=== PATIENT | male | born 1955 | race Caucasian/White ===

== ENCOUNTER 2016-07-15 15:16 | Inpatient (IN) | payer MEDICARE ==
[~2016-07-15] VITALS: Ht 180.3 cm; Wt 112.1 kg
[~2016-07-15 15:16] MED LIST: ALLO100T PO; AMLO-39 PO; ASPI81TA40 PO; CEPH-512 PO; CHOL200041 PO; CLON0.1T14 PO; CLOP75TA14 PO; COZ100 PO; FUR80 PO; GLU500 PO; IMD30 PO; METOPROLOL PO; OMEG1CAP25 PO; OMEP20CA11 PO; SIMV20TA PO; [UNRECOGNIZED DRUG - CODE] PO
[2016-07-15] MEDS ORDERED: Alum-Mag Hydrox-Simeth 30 mL Suspension PO PRN (16:40)
[2016-07-15] MEDS ORDERED: Ondansetron 2 mg/mL 2 mL Inj IVPUSH PRN (16:40)
[2016-07-15] MEDS ORDERED: Senna-Docusate 8.6-50 mg Tablet PO PRN (16:40)
[2016-07-15] MEDS ORDERED: Polyethylene Glycol (PEG) 17 Gm Powder PO PRN (16:40)
[2016-07-15 16:42] VITALS: BP 172/85; PULSE 57; RESP 22; O2SAT 96
[2016-07-15 16:55] VITALS: PULSE 59
--- NOTE | 2016-07-15 17:31 | NUR ---
Admit Pt. admitted from [facility] cardiology clinic today at 1615. Pt. denies chest pain, SOB, nausea, vomiting. Pt. has significant edema in face, hands, and lower extremities. Reports he has had 3 strokes, and displays R sided weakness. Wears a leg brace and uses a cane for ambulation. Pt. able to walk independently with cane, but we will keep him standby assist d/t unsteady gait. present soon after pt. in room to assess. at 1720, welding technician called to report 9 beats v-tach. Pt. reports no symptoms. paged.
[2016-07-15] MEDS ORDERED: TAMS0.4C98 PO (17:39)
[2016-07-15] MEDS ORDERED: VERA120T5 PO (17:39)
[2016-07-15] MEDS ORDERED: GABA600T2 PO ×3 (17:41)
[2016-07-15] MEDS ORDERED: CLON0.3T PO (17:42)
[2016-07-15] MEDS ORDERED: CARV25TA2 PO (17:42)
[2016-07-15] MEDS ORDERED: HYDR100T27 PO (17:43)
[2016-07-15] MEDS ORDERED: ISOS60TA2 PO (17:43)
[2016-07-15] MEDS ORDERED: LOSA100T29 PO (17:44)
[2016-07-15] MEDS ORDERED: MINO10TA PO (17:45)
[2016-07-15] MEDS ORDERED: POTA20TA16 PO (17:46)
[2016-07-15] MEDS ORDERED: FRSM80T PO (17:46)
[2016-07-15] MEDS ORDERED: CLOP75TA3 PO (17:47)
[2016-07-15] MEDS ORDERED: OMEG1CAP2 PO (17:48)
[2016-07-15] MEDS ORDERED: SIMV10TA4 PO (17:48)
[2016-07-15] MEDS ORDERED: ZYL100 PO (17:49)
[2016-07-15 17:51] LABS: BASOPHILS % (AUTO) 0.5 % (0-3); MONOCYTES % (AUTO) 5.7 % (4-12); Mean Corpuscular Hemoglobin 28.7 pg (27.0-35.0); Mean Corpuscular Volume 85.3 fL (81-100); NEUTROPHILS % (AUTO) 69.4 % (40-74); Platelet Count 147 bil/L (150-400)
[2016-07-15] MEDS ORDERED: DOCU-41 PO (17:51)
[2016-07-15] MEDS ORDERED: ASPI81TA3 PO (17:51)
[2016-07-15] MEDS ORDERED: CHOL100045 PO (17:51)
[2016-07-15] MEDS ORDERED: MULT1CAP33 PO (17:52)
[2016-07-15] MEDS ORDERED: ALBU8.5H2 INHALATION (17:52)
[2016-07-15 18:24] LABS: Magnesium 2.1 mg/dL (1.6-2.6); TROPONIN T < 0.010 ug/L (0.0-0.011)
--- NOTE | 2016-07-15 22:10 | PCM.HPMED ---
Subjective Date of Service Jul 15, 2016 Primary Provider: Admitting Physician: Jose David Hoffman MD Primary Care Physician: Other,Physician Attending Physician: Jose David Hoffman MD Admit Status: Direct Admit, Full Admit, Remote Telemetry Chief Complaint: Dyspnea and gross leg edema. History of Present Illness: This is a pleasant 61-year-old woman sent over from cardiology as a direct admit for volume overload. He has progressive severe edema. Recently in spite of being on Lasix at 80 mg, 3 tabs in the morning he has had progressive leg edema with weight increase and seeping of both legs. He is also had some dyspnea at rest, with exertion and some orthopnea. He has no known history of CAD and no recent echo. His last EKG is not available. He denies recent chest pain. He has been more short of breath since last Tuesday indefinitely since Tuesday. He has been more sedentary recently his sister notices them more fatigued and sleeps quite easily. Review of Systems: No headache. He denies visual changes or difficulty hearing. No recent URI symptoms including rhinorrhea sore throat cough or shortness of breath. No fevers or chills. No palpitations. No nausea vomiting diarrhea or blood per rectum. No hematuria or dysuria. No new skin rash or lesions other than the blistering and clear or serous oozing from his legs. Otherwise negative except as noted in history of present illness Allergies Coded Allergies: No Allergy Information Available (Verified Allergy, Unknown, RENAL INSUFFICIENCY DUE TO UNKNOWN ANTIBIOTIC, 12/09/15) Uncoded Allergies: antibiotic of unknown (Allergy, Unknown, 05/10/14) Home Medications Medical history list is pending the patient is taking Lasix 80 mg tablets 3 each morning. He is on multiple antihypertensives. I believe these will need to be reverified in the morning with the patient. PMH 1. CVA with chronic right hemiparesis 2. Chronic edema for up to 7 years. 3. Hypertension 4. Diabetes mellitus 2, diet controlled 5. Obesity Surgical History Surgery and fingers Family History Positive for CVA, sister and diabetes, mom Social History Hx Alcohol Use: No Hx Substance Use: No Hx Tobacco Use: No Smoking Status: Never Smoker Living Arrangement: Alone Exam Vital Signs Vital Sign - Last Date Time Temp Pulse Resp B/P Pulse Ox O2 Delivery O2 Flow Rate FiO2 07/15/16 16:55 59 07/15/16 16:42 36.6 22 172/85 96 Room Air Exam And oriented no acute distress. Fluent speech. Head is normal Normal nose and ears Anicteric sclerae, symmetric pupils Normal mouth, no droop. Oropharynx unremarkable. Neck is supple, normal JVP. Normal thyroid, no adenopathy. Lungs are clear with diminished breath sounds in the bases Heart is regular, distant no murmur. Abdomen is distended but nontender. No organomegaly. Extremities are notable for gross edema to the knees bilaterally with serious drainage in areas. The right foot is in a brace to prevent drop. Skin is otherwise free of rash or lesions, no ecchymosis. Patient has a paretic right arm and leg. Cranial nerves are grossly intact. Joints are not swollen or deformed. Patient is not anxious. Lab and Diagnostics Result Diagram: 07/15/16173607/15/161736 Assessment & Plan 1. Volume overload, anasarca. POA. This possibly does represent acute diastolic or systolic heart failure. Plan is to diuresis Lasix 100 IV every 12 hours, follow electrolytes. We will also obtain a chest x-ray, 2-D echocardiogram and ECG. 2. Obesity. POA. Follow clinically 3. Essential hypertension. POA. Follow clinically. He did verify his usual antihypertensive medications. Appears he is on many medications at high doses. 4. Diabetes mellitus to. Diet controlled. POA. We will simply use a 2 before meals and at bedtime Accu-Cheks with correctional lispro. 5. Chronic CVA with chronic right hemiparesis. POA. Patient's for resuscitation This is estimated to be over 2 nights, inpatient status. Pain Evaluation: Adequate Pain Control Resuscitation Status: CPR: Attempt Resuscitation Time spent 40 minutes Jose David Hoffman MD Jul 15, 2016 22:10
[2016-07-15 22:14] VITALS: BP 181/96; PULSE 57; RESP 20; O2SAT 94
[2016-07-15] MEDS: Furosemide 10 mg/mL 10 mL Inj IVPUSH SCH (23:14)
[2016-07-16] VITALS (8 sets, daily range): BP systolic 145–214; BP diastolic 69–103; PULSE 56–66; RESP 18–22; O2SAT 93–97
[2016-07-16] MEDS: Heparin 5,000 Unit/mL Inj SUBQ SCH ×3 (00:47→16:50)
[2016-07-16] MEDS: Sodium Chloride LOK Flush 10 mL Syringe IVFLUSH SCH ×3 (00:47→16:53)
[2016-07-16] MEDS ORDERED: hydrALAZINE 20 mg/mL Inj IV ONE (02:40)
--- NOTE | 2016-07-16 03:52 | NUR ---
BP Pt's BP was 203/92, paged Dr Marmolejo. 10mg hydralazine was ordered and given. Will continue to monitor.
[2016-07-16] MEDS ORDERED: Albuterol 2.5 mg/3 mL Inhalation Solution NEB PRN (07:00)
[2016-07-16 08:48] LABS: Phosphorus 3.6 mg/dL (2.5-4.9)
[2016-07-16 08:51] LABS: TROPONIN T < 0.010 ug/L (0.0-0.011)
[2016-07-16] MEDS: Isosorbide Mononitrate 60 mg ER24 Tablet PO SCH (10:19)
[2016-07-16] MEDS: Furosemide 10 mg/mL 10 mL Inj IVPUSH SCH (11:33)
[2016-07-16] MEDS: Potassium Chloride 20 mEq SR Tablet PO SCH ×2 (11:34→23:12)
[2016-07-16] MEDS ORDERED: hydrALAZINE 20 mg/mL Inj IV STA (12:21)
[2016-07-16] MEDS: cloNIDine 0.1 mg Tablet PO SCH ×2 (15:47→20:15)
[2016-07-16 17:00] LABS: TROPONIN T < 0.010 ug/L (0.0-0.011)
--- NOTE | 2016-07-16 17:01 | DRSVH ---
[facility] [address] [place] [address] Echocardiogram Report Name: ARNOLD JOAQUIN RStudy Date: 07/16/2016 Height: 71 in Hospital Exam Location: [facility] Weight: 267 lb Gender: Male BSA: 2.4 m2 : 1955 Age: 61 yrs BP: 175/83 mmHg Reason For Study: Congestive Heart Failure Ordering Physician: Performed By: [facility] Interpretation Summary 1) Moderate concentric left ventricular hypertrophy with normal size, wall motoin, and systolic function (EF 60-65%). 2) Normal right ventricular size and function. 3) No significant valvular abnormalities. 4) Severe left atrial enlargement present. 5) Small to moderate pericardial effusion present circumferentially. No echo/doppler evidence of tamponade physiology. 6) Significant hypertension present during the study (BP 175/83). 7) Findings consistent with hypertensive heart disease. 8) No prior Echo available for comparison. Procedure: A two-dimensional transthoracic echocardiogram with color flow and Doppler was performed. The study quality was technically adequate. There is no prior echocardiogram noted for this patient. The patient was in normal sinus rhythm during the exam. Left Ventricle: There is moderate concentric left ventricular hypertrophy. The left ventricle is normal in size. The ejection fraction is estimated to be 60-65%. Assessment of diastolic parameters indicates normal left ventricular diastolic function and normal filling pressures. Right Ventricle: The right ventricle is normal in size and function. Atria: The left atrium is severely dilated. Right atrial size is normal. The interatrial septum is intact with no evidence for an atrial septal defect. Aortic Valve: The aortic valve opens well. No aortic regurgitation is present. Tricuspid Valve: The tricuspid valve is normal in structure and function. There is a trace or physiologic amount of tricuspid regurgitation. The right ventricular systolic pressure is estimated at 35 mmHg assuming a right atrial pressure of 3 mm Hg. Pulmonic Valve: The pulmonic valve leaflets are thin and pliable; valve motion is normal. There is trace pulmonic regurgitation. Great Vessels: The aortic root is mildly dilated. The ascending aorta is mild-moderately enlarged. The IVC is of normal diameter and collapses greater than 50% with a sniff. This suggests a low right atrial pressure of 3 mm Hg. Pericardium/ Pleura Small to moderate pericardial effusion present circumferentially. There are no echocardiographic or Doppler indications for cardiac tamponade. There is no pleural effusion. MMode/2D Measurements & Calculations LVIDd: 5.7 cm LA dimension: 5.3 cm RA long axis Ao root diam: 4.0 cm LVIDs: 3.5 cm Aortic Jxn: 3.1 cm FS: 39.0 % LA A2 area: 33.1 cm RA area asc Aorta Diam IVSd: 1.5 cm LA A4 area: 39.2 cm LVPWd: 1.4 cm LA length (vol) : 19.5 cm Ao Arch Diam RA vol (Proximal trans.) LA vol: 151.9 ml : 60.6 ml LA vol index RA : 25.4 mm/ RVDd major IVC diam: 1.9 cm RVDd minor : 3.9 cm LV yu. diameter/BSALV sys. diameter/BSA (cm/m^2): 2.4 (cm/m^2): 1.5 Doppler Measurements & Calculations Ao V2 max MV E max freedom MV E/A: 1.2 TR max freedom : 184.2 cm/sec : 96.3 cm/sec MV A dur: 0.13 sec: 284.0 cm/sec Ao max PG MV A max freedom TR max PG : 13.6 mmHg : 78.3 cm/sec : 32.3 mmHg Ao mean PG PA V2 max : 6.6 mmHg : 117.5 cm/sec PA mean PG PA Accel Time : 0.14 sec MV dec time Ao V2 mean PA V2 mean : 0.21 sec : 120.0 cm/sec : 77.2 cm/sec Ao V2 VTI: 39.9 cm Reading Physician:05:00 PM
[2016-07-16] MEDS ORDERED: HYDROcodone-APAP 5-325 mg Tablet PO PRN (17:05)
--- NOTE | 2016-07-16 18:14 | NUR ---
Wound Care Pt sen at bedside, small 2 cm diameter ulcer right pretibial area, cultured, cleaned with saline, redressed with xeroform, kerlix and jovan wrap for edema control,. scratches at left lower leg these are covered with xeroform and wrapped with kerlix and jovan wraps. Wounds do not appear infected, recommend q 48 hr dressing changes by nursing, f/u at wound center for care on discharge,
--- NOTE | 2016-07-16 19:09 | NUR ---
Elevated BP New orders for Hydralazine IV and scheduled PO hydralazine for hypertension.
--- NOTE | 2016-07-16 19:11 | NUR ---
Wound consult Wound care nurse at bed side to assess bilateral lower legs and wound cultures received and sent to lab as ordered.
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
[2016-07-17] VITALS (7 sets, daily range): BP systolic 137–194; BP diastolic 70–89; PULSE 53–63; RESP 16–18; O2SAT 92–96
[2016-07-17] MEDS: Sodium Chloride LOK Flush 10 mL Syringe IVFLUSH SCH ×4 (00:12→23:40)
[2016-07-17] MEDS: Heparin 5,000 Unit/mL Inj SUBQ SCH ×4 (00:12→23:41)
--- NOTE | 2016-07-17 02:19 | NUR ---
Pain Pt complained of pain in RL leg. Hydrocodone APAP 5/325 given with good results. Pt sleeping, will continue to monitor pain.
[2016-07-17 06:19] LABS: BASOPHILS % (AUTO) 0.7 % (0-3); EOSINOPHILS % (AUTO) 2 % (0-5); MONOCYTES % (AUTO) 10.1 % (4-12); Mean Corpuscular Hemoglobin 29.1 pg (27.0-35.0); Mean Corpuscular Volume 84 fL (81-100); NEUTROPHILS % (AUTO) 59.9 % (40-74); Platelet Count 153 bil/L (150-400)
[2016-07-17 06:30] LABS: Magnesium 2.1 mg/dL (1.6-2.6); Phosphorus 3.7 mg/dL (2.5-4.9)
[2016-07-17] MEDS: Isosorbide Mononitrate 60 mg ER24 Tablet PO SCH (08:11)
[2016-07-17] MEDS: cloNIDine 0.1 mg Tablet PO SCH ×3 (08:20→22:09)
[2016-07-17] MEDS: Potassium Chloride 20 mEq SR Tablet PO SCH ×2 (08:21→22:25)
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
[2016-07-17 15:48] LABS: APPEARANCE,URINE CLEAR (CLEAR,HAZY); COLOR,URINE YELLOW (YELLOW); PH,URINE 6.5 (5.0-8.0)
[2016-07-17 15:49] LABS: OCCULT BLOOD,URINE NEGATIVE (NEGATIVE)
--- NOTE | 2016-07-17 15:57 | NUR ---
Social Work-initial assessment: Data:See initial assessment. Pt is a 61 y/o male who was admitted on 07/15/16 for CHF per H&P. Pt's insurance is [facility] and PCP is Other. EMR Reviewed. SW met with pt at bedside to discuss discharge planning, SW role explained. Pt resides at home alone where he remains independent with ADLS. Pt drives and does use a cane at baseline.Pt has no HH Or SNF history. Pt has no intermediate project manager care or VA benefits. PT evaluation is pending. SW to follow up post PT to further discuss discharge planning. SW will continue to follow. Assessment:Pt who is independent at baseline. Plan:Pt to discharge home when medically stable via POV. PT evaluation is pending. SW to follow up post PT to further discuss discharge planning. SW will continue to follow. KYLE Alonzo Addendum: 07/17/16 at 1608 by MELONIE CESPEDES Amended: Links added.
--- NOTE | 2016-07-17 17:35 | NUR ---
BLOOD PRESSURE P-Patient's blood pressure 198/86. I-MD made aware, medication changes done. E-Patient's BP now 146/70.
--- NOTE | 2016-07-17 17:52 | PCM.PNMED ---
Subjective Date of Service Jul 17, 2016 Subjective Overnight: ongoing elevated BP readings. Today: BP still elevated. Dr. Vargas consulted. Patient finally had a good night sleep. He states he feels a little improved with breathing, but still c/o RLE pain for which he needed Hydrocodone. Denies any chest pain, cough, abdominal pain. Exam Vital Signs Vital Sign - Last Date Time Temp Pulse Resp B/P Pulse Ox O2 Delivery O2 Flow Rate FiO2 07/17/16 15:03 36.8 57 16 146/70 94 Room Air Intake and Output 07/16/16 07/16/16 07/17/16 Cumulative From/Thru 15:00 23:00 07:00 07/15/16 16:40 - 07/17/16 05:15 Intake Total 300 ml 804 ml 400 ml 1504 ml Output Total 2375 ml 2875 ml 1430 ml 6980 ml Balance -2075 ml -2071 ml -1030 ml -5476 ml Intake Oral 300 ml 804 ml 400 ml 1504 ml Output Urine Total 2375 ml 2875 ml 1430 ml 6980 ml # Bowel Movements 1 1 Exam General: Obese, sitting upright in bed; alert, oriented; no acute distress HENT: Atraumatic, normocephalic; sclera anicteric; mucus membranes moist Neck: Soft, trachea midline Cardiac: Distant heart sounds; regular rate and rhythm at time of examination; no murmurs appreciated Respiratory: Adequate air flow all velez; no crackles appreciated; no wheeze Abdomen: Soft, nontender, nondistended; obese Extremities: Moderate BLLE pitting edema extending from dorsi to knees; multiple wounds BLLE proximal to ankles wrapped, with bandages clean, dry. intact; no active bleeding; wounds are moist, no streaking erythema; mildly tender to touch Skin: Warm and dry Neuro: CNII-XII grossly intact; speech understandable, impediment noted Psych: Appropriate mood, affect, and responses to questioning IVs and Medications Medications Reviewed: Medications were reviewed in detail Lab and Diagnostics Result Diagram: 07/17/1652 07/17/16 0552 Assessment & Plan Mr. Moose Morales is a 61 year old gentleman with history of CVA with right sided weakness residuals, resistant HTN, JANINE on CPAP, and chronic BLLE edema, that presented as a direct admission from cardiology office for exertional chest pain, shortness of breath, and increased edema. He was admitted for evaluation and treatment of volume overload. - Hospital day 3 Fluid retention with anasarca, chronicity unknown. Improving - Nephrology consultation with Dr. Vargas for improved fluid management. - Stopped Lasix IV per Dr. Vargas - Started Torsemide 40 mg BID - Monitor I/O - Echo: EF 60-65%, no valvular abnormalities, severe LA enlargement - BMP q8 to monitor electrolytes; replenish prn Resistant HTN, chronic. Presumed stable - Per Dr. Vargas: stop Carvedilol and Verapamil along with Lasix - Labetalol 300 mg twice a day and torsemide 40 mg twice a day. - Start chlorthalidone 25 mg daily. - Increase minoxidil to 5 mg b.i.d., and his spironolactone to 25 mg b.i.d. - Continue Clonidine 0.3mg TID, Losartan 100mg daily, Hydralazine 100mg TID, Isosorbide mononitrate ER 30mg daily - Work up for Hyperaldosteronism Multiple bilateral lower extremitiy wounds, chronicity unknown, present on admission. Ongoing - Wound eval Chronic kidney disease, stage III. Presumed stable - On admit: 1.55; baseline based on previous labs approx 1.4-1.5 - Monitor with lasix admin Obesity, chronic. Ongoing - Encouraged improved diet and mobility - Perry-scooter at baseline - PT eval Diabetes mellitus, non-insulin using, chronic. Presumed stable - A1c 07/15: 8.2 - Low dose correctional scale - Diabetic diet CVA with right sided residual deficits, chronic. Presumed stable - PT eval - PRN: Antiemetics/fever/bowel/pain - DVT: Hep q8 - GI: Not indicated - DIET: Heart healthy/CC - CODE: FULL CODE GI Prophylaxis: Not indicated Resuscitation Status: CPR: Attempt Resuscitation Attending Statement I reviewed this patients chart, discussed the plan of care with the resident and examined the patient. I agree with the above physical exam and assessment and plan. SUMA WINSLOW DO Jul 17, 2016 17:52 Efra Schilling DO Jul 18, 2016 16:27
--- NOTE | 2016-07-17 19:11 | DRSVH ---
PROCEDURE: US RENAL SONOGRAM INDICATIONS: 61-year-old male with chronic kidney disease. TECHNIQUE: Real-time scanning was performed of the kidneys and bladder, with image documentation. COMPARISON: None. FINDINGS: Kidneys: Kidneys are normal in size. Right kidney measures 10.9 cm long; left kidney measures 9.9 c m long. 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 Right renal cortical thickness is 1.5 cm; left renal cortical thickness is 1.1 cm. Renal cortical echotexture is normal. No hydronep hrosis or nephrolithiasis. No suspicious solid mass lesions. Bladder: Pre-void bladder volume is 600 mL. Post-void residual is 252 mL. Pre-void images demonstr ate no intraluminal masses or stones. On pre-void images, no ureteral jets are noted with color Dopp ler interrogation. (Of note, ureteral jets may not be detectable in up to 25% of cases due to insuff icient differences in specific gravity between ureteral and bladder urine). Miscellaneous: No free pelvic fluid. IMPRESSION: Increased postvoid residual, suggesting bladder outlet obstruction and/or neurogenic bladder. Dictated by: Nik Gtz M.D. on 07/17/2016 at 19:09 Approved by: Nik Gtz M.D. on 07/17/2016 at 19:09
[2016-07-18] VITALS (9 sets, daily range): BP systolic 104–145; BP diastolic 50–71; PULSE 56–68; RESP 16–18; O2SAT 89–95
--- NOTE | 2016-07-18 01:06 | NUR ---
leg dressing changed changed dressing to bilateral lower extremities as per wound care instructions. no drainage. wound beds are pink, healing well. also provided quiana care.
[2016-07-18] MEDS: Sodium Chloride LOK Flush 10 mL Syringe IVFLUSH SCH ×2 (09:11→16:49)
[2016-07-18] MEDS: Isosorbide Mononitrate 60 mg ER24 Tablet PO SCH (09:14)
[2016-07-18] MEDS: Heparin 5,000 Unit/mL Inj SUBQ SCH ×2 (09:23→16:49)
[2016-07-18] MEDS: cloNIDine 0.1 mg Tablet PO SCH ×3 (09:24→20:30)
[2016-07-18] MEDS: Potassium Chloride 20 mEq SR Tablet PO SCH ×2 (09:24→21:11)
--- NOTE | 2016-07-18 10:43 | PCM.PNMED ---
Subjective Date of Service Jul 18, 2016 Subjective Patient's blood pressure is considerably improved. He states that he has no new complaints and denies any chest pain, shortness of breath, cough, wheezing, nausea or vomiting. Most of his lab is pending at time of this dictation all of his urine protein to creatinine ratio was 0.3 which is consistent with 300 mg of protein IS most likely albumin from diabetic renal disease. His intake and output from yesterday work was 2150 in and 2355 out. Ultrasound showed normal-sized kidney kidneys bilaterally with normal architecture. There is no evidence of any masses or obstruction and evidence of any pelvic fluid. Exam Vital Signs Vital Sign - Last Date Time Temp Pulse Resp B/P Pulse Ox O2 Delivery O2 Flow Rate FiO2 07/18/16 09:05 CPAP/BIPAP 07/18/16 09:05 36.8 68 16 135/71 95 Intake and Output 07/17/16 07/17/16 07/18/16 Cumulative From/Thru 15:00 23:00 07:00 07/15/16 16:40 - 07/18/16 05:51 Intake Total 1750 ml 800 ml 4054 ml Output Total 925 ml 1750 ml 9655 ml Balance 825 ml -950 ml -5601 ml Intake Oral 1750 ml 800 ml 4054 ml Output Urine Total 925 ml 1750 ml 9655 ml # Bowel Movements 0 1 Exam Neck is supple without adenopathy, thyromegaly, or jugular venous distention. Lungs were clear to auscultation though somewhat diminished. Heart was regular with soft systolic murmur. Abdomen was distended without tenderness rebound guarding masses or hepatosplenomegaly was noted. Sphincter was good and there is no evidence of any rashes. His lower extremities for both left and this was not explored. There was no significant edema noted. Lab and Diagnostics Result Diagram: 07/17/16 0552 07/18/16 0717 Assessment & Plan Impression #1 hypertension with hypertensive heart disease and hypertensive nephrosclerosis without any overt evidence of congestive heart failure #2 diabetic nephropathy #3 poorly controlled hypertension rule out primary hyperaldosteronism #4 proteinuria Recommendation to continue him on his current medical therapy and I will follow him closely with you. GI Prophylaxis: Not indicated Resuscitation Status: CPR: Attempt Resuscitation Bennie Vargas DO Jul 18, 2016 10:43
--- NOTE | 2016-07-18 11:10 | NUR ---
Social Work-continued d/c planning: Data:EMR reviewed. Pt is on day 3 of hospitalization for CHF per H&P. Per MD, pt will likely be hospitalized for several more days. PT worked with pt yesterday and recommended SNF placement. SW discussed with pt, pt states he would like to think about this and have SW follow back up with pt. SW also discussed HH services, pt states he will think about this as well. SW to follow up tomorrow to further discuss. SW will continue to follow. Assessment:SNF vs home with HH. Plan:SW to follow up again tomorrow with pt regarding SNF vs home with HH. PT currently recommending SNF, pt would like to think about his options. SW will continue to follow. KYLE Alonzo
--- NOTE | 2016-07-18 15:30 | PCM.PNMED ---
Subjective Date of Service Jul 18, 2016 Subjective Overnight: No acute events Today: Doing well. Sitting upright and eating breakfast. Tolerating po intake well. Net (-) 5601; reports much improved breathing and decreased BLLE swelling. Exam Vital Signs Vital Sign - Last Date Time Temp Pulse Resp B/P Pulse Ox O2 Delivery O2 Flow Rate FiO2 07/18/16 13:44 36.8 65 104/51 91 Room Air 07/18/16 09:05 16 Intake and Output 07/17/16 07/17/16 07/18/16 Cumulative From/Thru 15:00 23:00 07:00 07/15/16 16:40 - 07/18/16 05:51 Intake Total 1750 ml 800 ml 4054 ml Output Total 925 ml 1750 ml 9655 ml Balance 825 ml -950 ml -5601 ml Intake Oral 1750 ml 800 ml 4054 ml Output Urine Total 925 ml 1750 ml 9655 ml # Bowel Movements 0 1 Exam General: Obese, sitting upright in bed; alert, oriented; no acute distress HENT: Atraumatic, normocephalic; sclera anicteric; mucus membranes moist Neck: Soft, trachea midline Cardiac: Distant heart sounds; regular rate and rhythm at time of examination; no murmurs appreciated Respiratory: Adequate air flow all velez; no crackles appreciated; no wheeze Abdomen: Soft, nontender, nondistended; obese Extremities: Mild BLLE pitting edema extending from dorsi to knees; multiple wounds BLLE proximal to ankles wrapped, with bandages clean, dry. intact; no active bleeding; wounds are moist, no streaking erythema; non tender to touch Skin: Warm and dry Neuro: CNII-XII grossly intact; speech understandable, impediment noted Psych: Appropriate mood, affect, and responses to questioning IVs and Medications Medications Reviewed: Medications were reviewed in detail Lab and Diagnostics Result Diagram: 07/17/16 0552 07/18/16 0717 Assessment & Plan Mr. Moose Morales is a 61 year old gentleman with history of CVA with right sided weakness residuals, resistant HTN, JANINE on CPAP, and chronic BLLE edema, that presented as a direct admission from cardiology office for exertional chest pain, shortness of breath, and increased edema. He was admitted for evaluation and treatment of volume overload. - Hospital day 4 Fluid retention with anasarca, chronicity unknown. Resolved - Nephrology consultation with Dr. Vargas for improved fluid management. - Stopped Lasix IV per Dr. Vargas - Started Torsemide 40 mg BID - Monitor I/O - Echo: EF 60-65%, no valvular abnormalities, severe LA enlargement - BMP q8 to monitor electrolytes; replenish prn Resistant HTN, chronic. Presumed stable - Per Dr. Vargas: stop Carvedilol and Verapamil along with Lasix - Labetalol 300 mg twice a day and torsemide 40 mg twice a day. - Start chlorthalidone 25 mg daily. - Increase minoxidil to 5 mg b.i.d., and his spironolactone to 25 mg b.i.d. - Continue Clonidine 0.3mg TID, Losartan 100mg daily, Hydralazine 100mg TID, Isosorbide mononitrate ER 30mg daily - Work up for Hyperaldosteronism : pending MSSA of multiple bilateral lower extremitiy wounds, chronicity unknown, present on admission. Ongoing - Wound eval - Cx revealed: MSSA, pansensitive, exc resistant to clindamycin - Augmentin 875/125 BID x10 days - Caution with unknown abx allergy ([employer] reports clindamycin as allergy) Chronic kidney disease, stage III. Presumed stable - On admit: 1.55; baseline based on previous labs approx 1.4-1.5 - Monitor with lasix admin Obesity, chronic. Ongoing - Encouraged improved diet and mobility - Perry-scooter at baseline - PT eval; pending Diabetes mellitus, non-insulin using, chronic. Presumed stable - A1c 07/15: 8.2 - Low dose correctional scale - Diabetic diet CVA with right sided residual deficits, chronic. Presumed stable - PT eval - PRN: Antiemetics/fever/bowel/pain - DVT: Hep q8 - GI: Not indicated - DIET: Heart healthy/CC - CODE: FULL CODE Dispo: Likely to DC 07/19 if remains medically stable, and PT can complete an evaluation. Pain Evaluation: Adequate Pain Control GI Prophylaxis: Not indicated Resuscitation Status: CPR: Attempt Resuscitation Attending Statement I reviewed this patients chart, discussed the plan of care with the resident and examined the patient. I agree with the above physical exam and assessment and plan. Devora Mccracken DO Jul 18, 2016 15:30 Efra Schilling DO Jul 18, 2016 16:29
--- NOTE | 2016-07-18 18:17 | NUR ---
BLOOD PRESSURE P-Patient's last two BP's 106/55 and 104/51 I- Held BP medications E-Continue to monitor BP before giving medications. I
[2016-07-18] MEDS: Amoxicillin-Clav 875-125 mg Tablet PO SCH (21:10)
--- NOTE | 2016-07-18 23:40 | NUR ---
Blood Glucose Pt Blood glucose level at 223 for HS reading, pt reported that last meal was around 1700. No BG coverage available. Pt reports that he has Diabetes and was taking Metformin about 6 months ago but stopped because A1c level was low. paged about condition. Low dose algorithm ordered for Blood glucose correction.
[2016-07-19] VITALS (9 sets, daily range): BP systolic 81–119; BP diastolic 44–64; PULSE 61–71; RESP 16–18; O2SAT 92–95
[2016-07-19] MEDS ORDERED: Glucose 40% Oral Gel 15 Gm Tube PO PRN (00:30)
[2016-07-19] MEDS: Insulin LISPRO 300 Unit/3 mL Inj SUBQ SCH ×5 (01:05→23:25)
[2016-07-19] MEDS: Heparin 5,000 Unit/mL Inj SUBQ SCH ×4 (01:07→23:25)
[2016-07-19] MEDS: Sodium Chloride LOK Flush 10 mL Syringe IVFLUSH SCH ×4 (01:07→23:26)
[2016-07-19 06:40] LABS: BASOPHILS % (AUTO) 0.6 % (0-3); EOSINOPHILS % (AUTO) 2.2 % (0-5); MONOCYTES % (AUTO) 8.3 % (4-12); Mean Corpuscular Hemoglobin 28.5 pg (27.0-35.0); Mean Corpuscular Volume 82.1 fL (81-100); NEUTROPHILS % (AUTO) 66.9 % (40-74); Platelet Count 149 bil/L (150-400)
[2016-07-19 06:53] LABS: Magnesium 2.2 mg/dL (1.6-2.6); Phosphorus 5.8 mg/dL (2.5-4.9)
[2016-07-19] MEDS: Amoxicillin-Clav 875-125 mg Tablet PO SCH ×2 (10:17→20:35)
[2016-07-19] MEDS: cloNIDine 0.1 mg Tablet PO SCH ×3 (10:18→20:30)
[2016-07-19] MEDS: Potassium Chloride 20 mEq SR Tablet PO SCH ×2 (10:19→20:35)
--- NOTE | 2016-07-19 10:24 | PCM.PNMED ---
Subjective Date of Service Jul 19, 2016 Subjective Overnight: No acute events Today: States he feels well. Denies SOB, CP. States his edema is much improved. He is anxious to return home. Tolerating po well. Tolerating augmentin well. No acute events. Awaiting PT evaluation. Net I/O (-) 5331; BP stable 119/56; no reported events of HTN since medication changes. Denies dizziness. lightheadedness, acute vision changes. Will continue to assess with PT evaluation later today. Exam Vital Signs Vital Sign - Last Date Time Temp Pulse Resp B/P Pulse Ox O2 Delivery O2 Flow Rate FiO2 07/19/16 05:50 36.9 61 18 119/56 93 CPAP Intake and Output 07/18/16 07/18/16 07/19/16 Cumulative From/Thru 15:00 23:00 07:00 07/15/16 16:40 - 07/19/16 06:21 Intake Total 1470 ml 100 ml 5624 ml Output Total 800 ml 500 ml 62779 ml Balance 670 ml -400 ml -5331 ml Intake Oral 1470 ml 100 ml 5624 ml Output Urine Total 800 ml 500 ml 15211 ml # Bowel Movements 0 1 Exam General: Obese, sitting upright in bed; alert, oriented; no acute distress HENT: Atraumatic, normocephalic; sclera anicteric; mucus membranes moist Neck: Soft, trachea midline Cardiac: Distant heart sounds; regular rate and rhythm at time of examination; no murmurs appreciated Respiratory: Adequate air flow all velez; no crackles appreciated; no wheeze Abdomen: Soft, nontender, nondistended; obese Extremities: Trace BLLE pitting edema extending from dorsi to knees; multiple wounds BLLE proximal to ankles wrapped, with bandages clean, dry. intact; no active bleeding; wounds are moist, no streaking erythema; non tender to touch Skin: Warm and dry; edema significantly reduced compared to previous examinations Neuro: CNII-XII grossly intact; speech understandable, impediment noted Psych: Appropriate mood, affect, and responses to questioning Lab and Diagnostics Result Diagram: 07/19/1661107/19/16611 Assessment & Plan Mr. Moose Morales is a 61 year old gentleman with history of CVA with right sided weakness residuals, resistant HTN, JANINE on CPAP, and chronic BLLE edema, that presented as a direct admission from cardiology office for exertional chest pain, shortness of breath, and increased edema. He was admitted for evaluation and treatment of volume overload. Nephrology was consulted for recommendations in fluid management, and a complete overhaul was completed. New schedule is working well thus far. - Hospital day 5 Anasarca - Improving - Nephrology consultation with Dr. Vargas for improved fluid management; appreciate expertise - Stopped Lasix IV per Dr. Vargas - Started Torsemide 40 mg BID - Monitor I/O - Echo: EF 60-65%, no valvular abnormalities, severe LA enlargement - BMP q8 to monitor electrolytes; replenish prn Essential Hypertension - Uncontrolled - Per Dr. Vargas: stop Carvedilol and Verapamil along with Lasix - Labetalol 300 mg twice a day and torsemide 40 mg twice a day. - Start chlorthalidone 25 mg daily. - Increase minoxidil to 5 mg b.i.d., and his spironolactone to 25 mg b.i.d. - Continue Clonidine 0.3mg TID, Losartan 100mg daily, Hydralazine 100mg TID, Isosorbide mononitrate ER 30mg daily - Work up for Hyperaldosteronism : pending; appears labs will be re-ordered through lab itself MSSA of multiple bilateral lower extremitiy wounds, chronicity unknown, present on admission. Ongoing - Wound eval - Cx revealed: MSSA, pansensitive, exc resistant to clindamycin - Augmentin 875/125 BID x10 days; start date 07/18 pm dose - Caution with unknown abx allergy ([employer] reports clindamycin as allergy) Acute Kidney Injury on Chronic kidney disease, stage III. Presumed stable - On admit: 1.55; baseline based on previous labs approx 1.4-1.5 - Current 2.36 - Monitor with diuretic use Obesity, chronic. Ongoing - Encouraged improved diet and mobility - Perry-scooter at baseline - PT eval; pending, yet to be completed Diabetes mellitus, non-insulin using, chronic. Presumed stable - A1c 07/15: 8.2 - Low dose correctional scale - Diabetic diet CVA with right sided residual deficits, chronic. Presumed stable - PT eval - PRN: Antiemetics/fever/bowel/pain - DVT: Hep q8 - GI: Not indicated - DIET: Heart healthy/CC - CODE: FULL CODE Dispo: Likely to DC 07/19-07/20 if remains medically stable, and PT can complete an evaluation. Awaiting final recs on medications per nephrology. GI Prophylaxis: Not indicated VTE Mechanical Devices: Anti-Embolic stockings Resuscitation Status: CPR: Attempt Resuscitation Attending Statement The patient was seen and examined together with Dr. Mccracken on 07/19/2016 and I agree with the history, exam and plan as outlined in the note above. Devora Mccracken DO Jul 19, 2016 10:24 Quinton Puckett MD Jul 19, 2016 12:29
[2016-07-19] MEDS: Isosorbide Mononitrate 60 mg ER24 Tablet PO SCH (11:02)
--- NOTE | 2016-07-19 11:02 | PCM.PNMED ---
Subjective Date of Service Jul 19, 2016 Subjective Was seen and examined in his room and the case has been discussed with the primary team. His blood pressure continues to do well and has had a slight bump in his serum creatinine which has risen to 2.36. Exam Vital Signs Vital Sign - Last Date Time Temp Pulse Resp B/P Pulse Ox O2 Delivery O2 Flow Rate FiO2 07/19/16 10:19 36.3 71 18 116/62 94 Room Air Intake and Output 07/18/16 07/18/16 07/19/16 Cumulative From/Thru 15:00 23:00 07:00 07/15/16 16:40 - 07/19/16 06:21 Intake Total 1470 ml 100 ml 5624 ml Output Total 800 ml 500 ml 89576 ml Balance 670 ml -400 ml -5331 ml Intake Oral 1470 ml 100 ml 5624 ml Output Urine Total 800 ml 500 ml 97410 ml # Bowel Movements 0 1 Exam Neck is supple without adenopathy thyromegaly or jugular venous distention. Lungs are clear to auscultation. Heart regular rhythm with a soft systolic murmur. An S4 was not noted. Abdomen soft without any tenderness rebound guarding masses or hepatosplenomegaly. Extremities did not show any clubbing cyanosis or edema. Lab and Diagnostics Result Diagram: 07/19/16 0612 07/19/16611 Assessment & Plan Impression #1 hypertension with hypertensive heart disease hypertensive nephrosclerosis rule out primary hyperaldosteronism number to diabetic nephropathy #3 mild acute kidney injury secondary to normalization of blood pressure Recommendations #1 tablet continue to follow his intake, output, and his lab. Incisions are stable he can be discharged. GI Prophylaxis: Not indicated VTE Mechanical Devices: Anti-Embolic stockings Resuscitation Status: CPR: Attempt Resuscitation Bennie Vargas DO Jul 19, 2016 11:02
--- NOTE | 2016-07-19 16:03 | NUR ---
Social Work-readiness for discharge: Data:EMR Reviewed. Pt is on day 4 of hospitalization for CHF per H&P. Pt is not medically stable at this time for discharge, but may be ready in the next day or two. PT continues to recommend SNF placement. SW followed up with pt again and discussed SNF placement. Pt did ambulate 25 ft today with PT. SW discussed HH services, pt agreeable to this. SW provided HH choice list, pt has no agency preference. SW referred to rotating calendar and made referral to [facility] RN,PT, access given. [facility] in folder. SW will continue to follow. Assessment:Pt who would benefit from HH> Plan:Pt to discharge home when medically stable via POV. Referral made to [facility] RN,PT, access given. [facility] in folder. SW will continue to follow. KYLE Alonzo
[2016-07-20] VITALS (8 sets, daily range): BP systolic 94–152; BP diastolic 53–99; PULSE 62–74; RESP 12–22; O2SAT 93–97
--- NOTE | 2016-07-20 04:03 | NUR ---
PT TRANSFERRED TO [facility] Pt transferred via bed at 0400. Report given to Nurse, all belongings with pt, medical chart and medications transferred, no apparent s/sx of distress. Pt cooperative with transfer.
[2016-07-20 07:45] LABS: BASOPHILS % (AUTO) 0.5 % (0-3); EOSINOPHILS % (AUTO) 2.6 % (0-5); MONOCYTES % (AUTO) 6.1 % (4-12); Mean Corpuscular Hemoglobin 28.7 pg (27.0-35.0); Mean Corpuscular Volume 83.3 fL (81-100); NEUTROPHILS % (AUTO) 64.5 % (40-74); Platelet Count 157 bil/L (150-400)
[2016-07-20 08:07] LABS: Magnesium 2.4 mg/dL (1.6-2.6)
[2016-07-20] MEDS: Insulin LISPRO 300 Unit/3 mL Inj SUBQ SCH ×4 (09:04→22:02)
[2016-07-20] MEDS: Isosorbide Mononitrate 60 mg ER24 Tablet PO SCH (09:07)
[2016-07-20] MEDS: Potassium Chloride 20 mEq SR Tablet PO SCH ×2 (09:07→20:23)
[2016-07-20] MEDS: Heparin 5,000 Unit/mL Inj SUBQ SCH ×2 (09:08→17:10)
[2016-07-20] MEDS: cloNIDine 0.1 mg Tablet PO SCH ×2 (09:08→20:25)
[2016-07-20] MEDS: Amoxicillin-Clav 875-125 mg Tablet PO SCH ×2 (09:08→20:23)
[2016-07-20] MEDS: Sodium Chloride LOK Flush 10 mL Syringe IVFLUSH SCH ×2 (09:14→17:10)
--- NOTE | 2016-07-20 10:00 | PCM.PNMED ---
Subjective Date of Service Jul 20, 2016 Subjective Patient patient had some overcorrection of his hypertension with no worsening of his transient acute kidney injury. She denies any chest pain, shortness of breath cough or wheezing. Exam Vital Signs Vital Sign - Last Date Time Temp Pulse Resp B/P Pulse Ox O2 Delivery O2 Flow Rate FiO2 07/20/16 07:54 36.5 64 12 121/55 97 Room Air Intake and Output 07/19/16 07/19/16 07/20/16 Cumulative From/Thru 15:00 23:00 07:00 07/15/16 16:40 - 07/20/16 05:50 Intake Total 1240 ml 900 ml 7764 ml Output Total 1000 ml 68977 ml Balance 240 ml 900 ml -4191 ml Intake Oral 1240 ml 900 ml 7764 ml Output Urine Total 1000 ml 88073 ml # Bowel Movements 1 Exam Neck is supple without adenopathy thyromegaly or jugular venous distention. Lungs showed a few rhonchi and diminished breath sounds bilaterally otherwise there were clear. Heart was regular with soft systolic murmur. Abdomen soft without tenderness rebound guarding masses or hepatosplenomegaly. She transiting clubbing cyanosis or edema. Skin turgor is good and there is no evidence of any rashes. Lab and Diagnostics Result Diagram: 07/20/1671907/20/16719 Assessment & Plan Impression #1 hypertension with hypertensive heart disease and hypertensive nephrosclerosis with possible primary hyperaldosteronism however the lab is pending on this #2 acute kidney injury secondary to transient lowering of his blood pressure #3 diabetic renal disease Recommendations #1 minute. The minoxidil, hydralazine, and I will try to decrease his clonidine to 0.2 twice a day and continue to follow his blood pressure. GI Prophylaxis: Not indicated VTE Mechanical Devices: Anti-Embolic stockings Resuscitation Status: CPR: Attempt Resuscitation Bennie Vargas DO Jul 20, 2016 10:00
--- NOTE | 2016-07-20 11:57 | NUR ---
Wound Care Patient seen at bedside for dressing changes. Lower leg edema is markedly improved, right anterior leg ulcer is 2 cm in diameter and wound bed is 100% granulation tissue at this time, drainage is serous and scant, wound cleaned with saline moist gauze, redressed with Xeroform,kerlix and jovan wrap. Left anterior leg ulcer is superficial and redressed with a mepilex adhesive foam and jovan wrap. Wounds at legs stable, improved and without s/s of infection.
--- NOTE | 2016-07-20 18:10 | NUR ---
Leg Dressings Bilateral leg dressings changed today by wound care nurse. Ordered as daily nurse dressing changes.
--- NOTE | 2016-07-20 18:34 | PCM.PNMED ---
Subjective Date of Service Jul 20, 2016 Subjective Blood pressure on the low side, hydralazine and minoxidil discontinued today. Clonidine lowered . Worsening MERCEDES noted Exam Vital Signs Vital Sign - Last Date Time Temp Pulse Resp B/P Pulse Ox O2 Delivery O2 Flow Rate FiO2 07/20/16 16:57 36.4 69 16 127/67 95 Room Air Intake and Output 07/19/16 07/19/16 07/20/16 Cumulative From/Thru 15:00 23:00 07:00 07/15/16 16:40 - 07/20/16 05:50 Intake Total 1240 ml 900 ml 7764 ml Output Total 1000 ml 31303 ml Balance 240 ml 900 ml -4191 ml Intake Oral 1240 ml 900 ml 7764 ml Output Urine Total 1000 ml 02932 ml # Bowel Movements 1 Exam General: Obese, sitting upright in bed; alert, oriented; no acute distress HENT: Atraumatic, normocephalic; sclera anicteric; mucus membranes moist Neck: Soft, trachea midline Cardiac: Distant heart sounds; regular rate and rhythm at time of examination; no murmurs appreciated Respiratory: Adequate air flow all velez; no crackles appreciated; no wheeze Abdomen: Soft, nontender, nondistended; obese Extremities: Trace BLLE pitting edema extending from dorsi to knees; multiple wounds BLLE proximal to ankles wrapped, with bandages clean, dry. intact; no active bleeding; wounds are moist, no streaking erythema; non tender to touch Skin: Warm and dry; edema significantly reduced compared to previous examinations Neuro: CNII-XII grossly intact; speech understandable, impediment noted Psych: Appropriate mood, affect, and responses to questioning IVs and Medications Medications Reviewed: Medications were reviewed in detail Lab and Diagnostics Result Diagram: 07/20/1671907/20/16719 Assessment & Plan Mr. Moose Morales is a 61 year old gentleman with history of CVA with right sided weakness residuals, resistant HTN, JANINE on CPAP, and chronic BLLE edema, that presented as a direct admission from cardiology office for exertional chest pain, shortness of breath, and increased edema. He was admitted for evaluation and treatment of volume overload. Nephrology was consulted for recommendations in fluid management, and a complete overhaul was completed. New schedule is working well thus far. - Hospital day 6 Acute Kidney Injury on Chronic kidney disease, stage III. Presumed stable - On admit: 1.55; baseline based on previous labs approx 1.4-1.5 - Current 3.45 -Due to over correction of fluid status and blood pressure - Monitor with diuretic use -Hydralazine and minoxidil discontinued today, clonidine dose lowered Anasarca - Improving - Nephrology consultation with Dr. Vargas for improved fluid management; appreciate expertise - Stopped Lasix IV per Dr. Vargas - Started Torsemide 40 mg BID - Monitor I/O - Echo: EF 60-65%, no valvular abnormalities, severe LA enlargement - BMP q8 to monitor electrolytes; replenish prn Essential Hypertension - Uncontrolled - Per Dr. Vargas: stop Carvedilol and Verapamil along with Lasix - Labetalol 300 mg twice a day and torsemide 40 mg twice a day. - on chlorthalidone 25 mg daily. - Increase minoxidil to 5 mg b.i.d., and his spironolactone to 25 mg b.i.d. - Continue Clonidine 0.3mg TID, Losartan 100mg daily, Hydralazine 100mg TID, Isosorbide mononitrate ER 30mg daily - Work up for Hyperaldosteronism : pending; appears labs will be re-ordered through lab itself -Hydralazine and minoxidil discontinued today 07/20, clonidine dose lowered MSSA of multiple bilateral lower extremitiy wounds, chronicity unknown, present on admission. Ongoing - Wound eval - Cx revealed: MSSA, pansensitive, exc resistant to clindamycin - Augmentin 875/125 BID x10 days; start date 07/18 pm dose - Caution with unknown abx allergy ([employer] reports clindamycin as allergy) Obesity, chronic. Ongoing - Encouraged improved diet and mobility - Perry-scooter at baseline - PT eval; pending, yet to be completed Diabetes mellitus, non-insulin using, chronic. Presumed stable - A1c 07/15: 8.2 - Low dose correctional scale - Diabetic diet CVA with right sided residual deficits, chronic. Presumed stable - PT eval - PRN: Antiemetics/fever/bowel/pain - DVT: Hep q8 - GI: Not indicated - DIET: Heart healthy/CC - CODE: FULL CODE Dispo: Pending hospital course given worsening MERCEDES GI Prophylaxis: Not indicated VTE Mechanical Devices: Anti-Embolic stockings Resuscitation Status: CPR: Attempt Resuscitation Charlie Castellano MD Jul 20, 2016 18:34
[2016-07-21] VITALS (8 sets, daily range): BP systolic 107–211; BP diastolic 60–111; PULSE 64–75; RESP 14–20; O2SAT 94–97
[2016-07-21] MEDS: Sodium Chloride LOK Flush 10 mL Syringe IVFLUSH SCH ×3 (00:30→17:16)
[2016-07-21] MEDS: Heparin 5,000 Unit/mL Inj SUBQ SCH ×3 (01:18→17:16)
--- NOTE | 2016-07-21 04:00 | NUR ---
Ambulation Pt got up to BSC for BM. Steady once standing, needs 1PA w/ some times of unpredictable movement.
[2016-07-21] MEDS: Insulin LISPRO 300 Unit/3 mL Inj SUBQ SCH ×4 (08:39→21:55)
[2016-07-21] MEDS: Potassium Chloride 20 mEq SR Tablet PO SCH ×2 (08:40→21:40)
[2016-07-21] MEDS: Amoxicillin-Clav 875-125 mg Tablet PO SCH ×2 (08:40→21:39)
[2016-07-21] MEDS: cloNIDine 0.1 mg Tablet PO SCH ×2 (08:41→21:39)
[2016-07-21] MEDS: Isosorbide Mononitrate 60 mg ER24 Tablet PO SCH (11:39)
--- NOTE | 2016-07-21 13:44 | NUR ---
Mobility Stood patient up for ortho VS and getting up to chair. Had LOB and sat back onto bed. Required 1-2 assist to stand and take short steps to chair next to bed. Pt very upset with this.
--- NOTE | 2016-07-21 15:11 | PCM.PNMED ---
Subjective Date of Service Jul 21, 2016 Subjective denies any new issues/complaints. no SOB. no n/v Exam Vital Signs Vital Sign - Last Date Time Temp Pulse Resp B/P Pulse Ox O2 Delivery O2 Flow Rate FiO2 07/21/16 11:53 75 211/111 07/21/16 11:43 37.2 20 94 Room Air Intake and Output 07/20/16 07/20/16 07/21/16 Cumulative From/Thru 15:00 23:00 07:00 07/15/16 16:40 - 07/21/16 06:37 Intake Total 956 ml 400 ml 9120 ml Output Total 2150 ml 2900 ml 64415 ml Balance -1194 ml -2500 ml -7885 ml Intake Oral 956 ml 400 ml 9120 ml IV Total 0 ml 0 ml Output Urine Total 2150 ml 2900 ml 71098 ml # Bowel Movements 1 2 General: Alert, Cooperative, No Acute Distress Head: Normal Eyes: Scleral Anicteric Mouth: Mucous Membr Moist/[place] Neck: Supple Chest & Lungs: Chest Wall Normal, Clear to auscultation & percussion Cardiovascular: Regular Rate/Rhythm Abdomen: Non-tender, Non-distended, Normoactive bowel tones, Soft Extremities: Other (trace bilat LE edema) Neurological: Grossly Neurologically Intact, Normal Speech IVs and Medications Medications Reviewed: Medications were reviewed in detail Lab and Diagnostics Result Diagram: 07/20/16 0720 07/21/16 0645 Assessment & Plan 61 year old gentleman with history of CVA with right sided weakness residuals, resistant HTN, JANINE on CPAP, and chronic BLLE edema, that presented as a direct admission from cardiology office for exertional chest pain, shortness of breath , and increased edema. He was admitted for evaluation and treatment of volume overload. Nephrology was consulted for recommendations in fluid management. # Acute Kidney Injury on Chronic kidney disease, stage III. POA. Improving - On admit: 1.55; baseline based on previous labs approx 1.4-1.5 - Current 2.38 - suspect due to over correction of fluid status and blood pressure - Monitor with diuretic use - appreciate nephrology consult. will f/u w/ recs # Anasarca, acute. POA. Improving - further diuretic per nephrology recs - Monitor I/O - Echo: EF 60-65%, no valvular abnormalities, severe LA enlargement # Essential Hypertension. poorly controlled. ongoing - c/w current meds - consider titrating up Clonidine again. will f/u w/ nephrology recs # MSSA of multiple bilateral lower extremity wounds, chronicity unknown, present on admission. Ongoing - c/w wound care - Cx revealed: MSSA, pansensitive, exc resistant to clindamycin - Augmentin 875/125 BID x10 days; start date 07/18 pm dose - Caution with unknown abx allergy ([employer] reports clindamycin as allergy) # Obesity, chronic. Ongoing - Encouraged improved diet and mobility - Perry-scooter at baseline - PT eval # Diabetes mellitus, non-insulin using, chronic. Presumed stable - A1c 07/15: 8.2 - Low dose correctional scale - Diabetic diet # CVA with right sided residual deficits, chronic. Presumed stable - PT eval Dispo: 2-3 days pending improving renal function and better BP control GI Prophylaxis: Not indicated VTE Mechanical Devices: Anti-Embolic stockings Resuscitation Status: CPR: Attempt Resuscitation Time spent 35 min Jaleel Bowser Jul 21, 2016 15:11
[2016-07-21] MEDS ORDERED: hydrALAZINE 20 mg/mL Inj IV ONE (15:15)
--- NOTE | 2016-07-21 15:36 | NUR ---
Ankle pain/dsg change Pt reporting right ankle pain "like a sprain" on inside portion of ankle bone. Reports pain started with decrease of swelling in legs. Pt states years ago had sprained ankle and it acts up once in awhile. MD notified of this. Dressing changed to bilat LE. Cleansed with NS, On left LE covered with mepilex border (as was done yesterday) wrapped with jovan On right LE covered 2 red/slightly open areas on lehman with xeroform, wrapped with kerlix and jovan wrap.
--- NOTE | 2016-07-21 16:20 | PCM.PNMED ---
Subjective Date of Service Jul 21, 2016 Subjective There has been some improvement in renal function and more normalization of his blood pressure following some changes in his medication. Otherwise patient denies any chest pain shortness of breath cough wheezing nausea or vomiting. Exam Vital Signs Vital Sign - Last Date Time Temp Pulse Resp B/P Pulse Ox O2 Delivery O2 Flow Rate FiO2 07/21/16 13:55 70 120/71 95 Room Air 07/21/16 11:43 37.2 20 Intake and Output 07/20/16 07/20/16 07/21/16 Cumulative From/Thru 15:00 23:00 07:00 07/15/16 16:40 - 07/21/16 06:37 Intake Total 956 ml 400 ml 9120 ml Output Total 2150 ml 2900 ml 25172 ml Balance -1194 ml -2500 ml -7885 ml Intake Oral 956 ml 400 ml 9120 ml IV Total 0 ml 0 ml Output Urine Total 2150 ml 2900 ml 02804 ml # Bowel Movements 1 2 Exam Neck is supple without adenopathy thyromegaly or jugular venous distention. Lungs were clear to auscultation. Heart is regular and rhythmical with a soft systolic murmur. Abdomen was soft without any tenderness rebound guarding masses or hepatosplenomegaly. Extremities joints and clubbing cyanosis or edema. Lab and Diagnostics Result Diagram: 07/20/16 0720 07/21/16 0645 Assessment & Plan Impression #1 mild acute kidney injury which appears to be resolving #2 hypertension with hypertensive heart disease hypertensive nephrosclerosis #3 diabetic nephropathy Recommendations # to continue to monitor his renal function. GI Prophylaxis: Not indicated VTE Mechanical Devices: Anti-Embolic stockings Resuscitation Status: CPR: Attempt Resuscitation Bennie Vargas DO Jul 21, 2016 16:20
[2016-07-22] VITALS (8 sets, daily range): BP systolic 155–190; BP diastolic 77–100; PULSE 68–75; RESP 16–20; O2SAT 94–96
[2016-07-22] MEDS: Heparin 5,000 Unit/mL Inj SUBQ SCH ×3 (00:45→17:08)
[2016-07-22] MEDS: Sodium Chloride LOK Flush 10 mL Syringe IVFLUSH SCH ×3 (00:45→17:08)
--- NOTE | 2016-07-22 05:37 | NUR ---
pain/activity pt report right ankle pain as tolerable level on rate of 07/27. pt got out of bed with 1-2 person assist to the bed side commode. Steady once standing. Bed is locked and in low position. call light within reach. will continue to monitor.
[2016-07-22] MEDS: Insulin LISPRO 300 Unit/3 mL Inj SUBQ SCH ×4 (07:58→21:22)
[2016-07-22] MEDS: Amoxicillin-Clav 875-125 mg Tablet PO SCH ×2 (08:00→21:28)
[2016-07-22] MEDS: cloNIDine 0.1 mg Tablet PO SCH ×2 (08:01→21:28)
[2016-07-22] MEDS: Potassium Chloride 20 mEq SR Tablet PO SCH ×2 (08:03→21:29)
[2016-07-22] MEDS: Isosorbide Mononitrate 60 mg ER24 Tablet PO SCH (08:03)
[2016-07-22 09:58] LABS: Mean Corpuscular Volume 83.1 fL (81-100)
--- NOTE | 2016-07-22 12:07 | NUR ---
Social Work: Readiness for d/c Data: Pt is on day 7 of hospitalization. EMR reviewed, pt discussed in rounds. states pt likely to d/c in the next day or two and that nephrology needs to meet with pt. COMB SETTER will continue to follow. Assessment: Pt who is independent at baseline. Plan: Pt will d/c home via POV when medically stable, likely in the next day or two, with Al[facility] CHESTER. COMB SETTER will continue to follow. KYLE Lagunas
--- NOTE | 2016-07-22 12:25 | PCM.PNMED ---
Subjective Date of Service Jul 22, 2016 Subjective Patient's renal function has improved somewhat. His blood pressure is still elevated but is responding to aggressive therapy. Otherwise the patient denies any chest pain, shortness of breath, cough, wheezing, nausea, vomiting, fever or chills. Exam Vital Signs Vital Sign - Last Date Time Temp Pulse Resp B/P Pulse Ox O2 Delivery O2 Flow Rate FiO2 07/22/16 11:47 Room Air 07/22/16 08:30 36.6 70 182/89 95 07/22/16 05:49 20 Intake and Output 07/21/16 07/21/16 07/22/16 Cumulative From/Thru 15:00 23:00 07:00 07/15/16 16:40 - 07/22/16 00:34 Intake Total 800 ml 9920 ml Output Total 1400 ml 26305 ml Balance -600 ml -8485 ml Intake Oral 800 ml 9920 ml IV Total 0 ml Output Urine Total 1400 ml 09233 ml # Bowel Movements 2 Exam Neck is supple without adenopathy thyromegaly or Dr. suspension. Lungs were clear to auscultation. Lab and Diagnostics Result Diagram: 07/22/16 0845 07/22/16 0845 Assessment & Plan Impression #1 mild acute kidney injury which appears to be resolving #2 hypertension with hypertensive heart disease hypertensive nephrosclerosis #3 diabetic nephropathy Recommendations #1 like to add an additional 100 mg labetalol twice a day so he will be getting a total of 300 mg twice a day of labetalol along with his other medication. Will also need to continue to follow his lab and blood pressures most likely can be discharged in 1-2 days. GI Prophylaxis: Not indicated VTE Mechanical Devices: Anti-Embolic stockings Resuscitation Status: CPR: Attempt Resuscitation Bennie Vargas DO Jul 22, 2016 12:25
--- NOTE | 2016-07-22 16:31 | PCM.PNMED ---
Subjective Date of Service Jul 22, 2016 Subjective denies any new issues/complaints. no SOB. no n/v. complains of new left ankle pain started couple of days ago (but he says he has had this pain in the past after an injury) Exam Vital Signs Vital Sign - Last Date Time Temp Pulse Resp B/P Pulse Ox O2 Delivery O2 Flow Rate FiO2 07/22/16 12:52 36.5 74 160/100 95 CPAP 07/22/16 05:49 20 Intake and Output 07/21/16 07/21/16 07/22/16 Cumulative From/Thru 15:00 23:00 07:00 07/15/16 16:40 - 07/22/16 00:34 Intake Total 800 ml 9920 ml Output Total 1400 ml 62476 ml Balance -600 ml -8485 ml Intake Oral 800 ml 9920 ml IV Total 0 ml Output Urine Total 1400 ml 26338 ml # Bowel Movements 2 Exam General: Alert, Cooperative, No Acute Distress Head: Normal Eyes: Scleral Anicteric Mouth: Mucous Membr Moist/[place] Neck: Supple Chest & Lungs: Chest Wall Normal, Clear to auscultation bilat Cardiovascular: Regular Rate/Rhythm Abdomen: Non-tender, Non-distended, Normoactive bowel tones, Soft Extremities: Other (trace bilat LE edema) Neurological: Grossly Neurologically Intact, Normal Speech IVs and Medications Medications Reviewed: Medications were reviewed in detail Lab and Diagnostics Result Diagram: 07/22/1645 07/22/16 0845 Assessment & Plan 61 year old gentleman with history of CVA with right sided weakness residuals, resistant HTN, JANINE on CPAP, and chronic BLLE edema, that presented as a direct admission from cardiology office for exertional chest pain, shortness of breath , and increased edema. He was admitted for evaluation and treatment of volume overload. Nephrology was consulted for recommendations in fluid management. # Acute Kidney Injury on Chronic kidney disease, stage III. POA. Improving - On admit: 1.55; baseline based on previous labs approx 1.4-1.5 - Current 2.06 - suspect due to over correction of fluid status and blood pressure - Monitor with diuretic use - appreciate nephrology consult. will f/u w/ recs # Anasarca, acute. POA. Improving - further diuretic per nephrology recs - Monitor I/O - Echo: EF 60-65%, no valvular abnormalities, severe LA enlargement # Essential Hypertension. poorly controlled. ongoing - add an additional 100 mg labetalol twice a day so he will be getting a total of 300 mg twice a day of labetalol along with his other medication per nephrology recs # MSSA of multiple bilateral lower extremity wounds, chronicity unknown, present on admission. Ongoing - c/w wound care - Cx revealed: MSSA, pansensitive, exc resistant to clindamycin - Augmentin 875/125 BID x10 days; start date 07/18 pm dose - Caution with unknown abx allergy ([employer] reports clindamycin as allergy) # Acute left ankle pain. not poa. - check left ankle x-ray # Obesity, chronic. Ongoing - Encouraged improved diet and mobility - Perry-scooter at baseline - PT eval # Diabetes mellitus, non-insulin using, chronic. Presumed stable - A1c 07/15: 8.2 - Low dose correctional scale - Diabetic diet # CVA with right sided residual deficits, chronic. Presumed stable - PT eval Dispo: 1-2 days pending improving renal function and better BP control GI Prophylaxis: Not indicated VTE Mechanical Devices: Anti-Embolic stockings Resuscitation Status: CPR: Attempt Resuscitation Jaleel Bowser Jul 22, 2016 16:31
[2016-07-23] VITALS (8 sets, daily range): BP systolic 160–189; BP diastolic 76–102; PULSE 64–69; RESP 16–22; O2SAT 94–96
[2016-07-23] MEDS: Heparin 5,000 Unit/mL Inj SUBQ SCH ×3 (00:52→18:18)
[2016-07-23] MEDS: Sodium Chloride LOK Flush 10 mL Syringe IVFLUSH SCH ×3 (00:52→18:18)
--- NOTE | 2016-07-23 03:46 | NUR ---
pain/activity pt report 2-4 intermittent right ankle pain. offered medication, but pt report it's tolerable for him. Encouraged pt to get out of bed to improve his strength, but pt state he is tired and will do it during the day time. Bed is locked and in low position. call light within reach. will continue to monitor.
--- NOTE | 2016-07-23 08:13 | DRSVH ---
PROCEDURE: X-RAY RIGHT ANKLE, MINIMUM THREE VIEWS ([id number]) INDICATIONS: Right ankle pain TECHNIQUE: 3 views of the ankle were acquired. COMPARISON: None. FINDINGS: Bones: No fractures or dislocations. Ankle mortise is normally aligned. No suspicious bony lesions . Soft tissues: No tibiotalar joint effusion. Achilles tendon appears normal. IMPRESSION: Negative for fracture Dictated by: Guicho Charlton M.D. on 07/23/2016 at 8:11 Approved by: Guicho Charlton M.D. on 07/23/2016 at 8:11
[2016-07-23] MEDS: Insulin LISPRO 300 Unit/3 mL Inj SUBQ SCH ×4 (09:10→22:16)
[2016-07-23] MEDS: Isosorbide Mononitrate 60 mg ER24 Tablet PO SCH (09:10)
[2016-07-23] MEDS: Amoxicillin-Clav 875-125 mg Tablet PO SCH ×2 (11:41→20:06)
[2016-07-23] MEDS: Potassium Chloride 20 mEq SR Tablet PO SCH ×2 (11:42→20:06)
[2016-07-23] MEDS: cloNIDine 0.1 mg Tablet PO SCH ×2 (11:43→20:07)
--- NOTE | 2016-07-23 11:57 | PCM.PNMED ---
Subjective Date of Service Jul 23, 2016 Subjective The patient's serum aldosterone and plasma renin activity are both pending at time of this dictation. His renal function is stable with a creatinine of 1.75. However his blood pressure does remain a bit higher than I like to see it. He denies any chest pain shortness of breath nausea or vomiting. Exam Vital Signs Vital Sign - Last Date Time Temp Pulse Resp B/P Pulse Ox O2 Delivery O2 Flow Rate FiO2 07/23/16 11:42 37.0 69 18 189/102 95 Room Air Intake and Output 07/22/16 07/22/16 07/23/16 Cumulative From/Thru 15:00 23:00 07:00 07/15/16 16:40 - 07/23/16 06:25 Intake Total 440 ml 1200 ml 522 ml 79127 ml Output Total 2100 ml 1800 ml 2550 ml 56444 ml Balance -1660 ml -600 ml -2028 ml -40722 ml Intake Oral 440 ml 1200 ml 522 ml 99232 ml IV Total 0 ml Output Urine Total 2100 ml 1800 ml 2550 ml 85951 ml # Bowel Movements 1 0 3 Exam Neck is supple without adenopathy thyromegaly or jugular venous distention. Lungs were clear to auscultation. Heart is regular with soft systolic murmur. There is no S4 noted. Abdomen is soft without any tenderness or rebound guarding masses or hepatosplenomegaly. Extremities no transient clubbing cyanosis or edema. Lab and Diagnostics Result Diagram: 07/22/16 0845 07/23/16 0655 Assessment & Plan Impression #1 chronic kidney disease stage III number to diabetic nephropathy # 3 hypertension with evidence of heart disease and hypertensive nephrosclerosis and I still am strongly considering primary hyperaldosteronism aggravating mechanism. Recommendations #1 of the Once again increase his spironolactone. GI Prophylaxis: Not indicated VTE Mechanical Devices: Intermittant Pneumatic CD Resuscitation Status: CPR: Attempt Resuscitation Bennie Vargas DO Jul 23, 2016 11:57
--- NOTE | 2016-07-23 14:27 | PCM.PNMED ---
Subjective Date of Service Jul 23, 2016 Subjective He denies any dyspnea, palpitations or chest pain. He has a lot of lower back pain from his bed. He denies any abdominal pain nausea or diarrhea. No headache. He has a chronic right hemiparesis from stroke. Exam Vital Signs Vital Sign - Last Date Time Temp Pulse Resp B/P Pulse Ox O2 Delivery O2 Flow Rate FiO2 07/23/16 12:03 176/89 07/23/16 11:42 37.0 69 18 95 Room Air Intake and Output 07/22/16 07/22/16 07/23/16 Cumulative From/Thru 15:00 23:00 07:00 07/15/16 16:40 - 07/23/16 06:25 Intake Total 440 ml 1200 ml 522 ml 43228 ml Output Total 2100 ml 1800 ml 2550 ml 51267 ml Balance -1660 ml -600 ml -2028 ml -49778 ml Intake Oral 440 ml 1200 ml 522 ml 14587 ml IV Total 0 ml Output Urine Total 2100 ml 1800 ml 2550 ml 03882 ml # Bowel Movements 1 0 3 Exam Alert oriented 3, slow speech. No distress Neck supple normal JVP. Lungs are clear with normal effort. Heart is regular without murmur gallop or rub Abdomen soft nondistended. Extremities with 1-2+ edema wrapped in both sides but substantially improved from initial admit. Skin is otherwise free of rash or lesions. Fluids IVs and Medications Medications Reviewed: Medications were reviewed in detail Lab and Diagnostics Result Diagram: 07/22/16 0845 07/23/16 0655 Assessment & Plan # Acute Kidney Injury on Chronic kidney disease, stage III. POA. Improving - On admit: 1.55; baseline based on previous labs approx 1.4-1.5 - Current 1.75 down from 2.06 yesterday - suspect due to over correction of fluid status and blood pressure - Monitor with diuretic use, up titration of spironolactone per Dr. Vargas. - appreciate nephrology consult. will f/u w/ recs # Anasarca, acute. POA. Improving - further diuretic per nephrology recs - Monitor I/O - Echo: EF 60-65%, no valvular abnormalities, severe LA enlargement . Up titration of spironolactone. # Essential Hypertension. poorly controlled. ongoing - add an additional 100 mg labetalol twice a day so he will be getting a total of 300 mg twice a day of labetalol along with his other medication per nephrology recs # MSSA of multiple bilateral lower extremity wounds, chronicity unknown, present on admission. Ongoing - c/w wound care - Cx revealed: MSSA, pansensitive, exc resistant to clindamycin - Augmentin 875/125 BID x10 days; start date 07/18 pm dose - Caution with unknown abx allergy ([facility] reports clindamycin as allergy) # Acute left ankle pain. not poa. - check left ankle x-ray, unremarkable. He notes that clinically this is improved she could walk on the left ankle this morning. # Obesity, chronic. Ongoing - Encouraged improved diet and mobility - Perry-scooter at baseline - PT eval # Diabetes mellitus, non-insulin using, chronic and uncontrolled. Presumed stable - A1c 07/15: 8.2 - Low dose correctional scale - Diabetic diet # CVA with right sided residual deficits, chronic. Presumed stable - PT eval Pain Evaluation: Adequate Pain Control GI Prophylaxis: Not indicated VTE Mechanical Devices: Intermittant Pneumatic CD Resuscitation Status: CPR: Attempt Resuscitation Time spent 25 minutes Jose David Hoffman MD Jul 23, 2016 14:27
--- NOTE | 2016-07-23 17:49 | NUR ---
Mobility/Pain Patient in chairs for meals. Ambulated with 1PA to toilet. Tolerated well. No c/o chest pain. Did have occasional c/o right ankle pain that "comes and goes". Patient declined PRN pain meds. Continue frequent rounding.
[2016-07-24] VITALS (8 sets, daily range): BP systolic 94–179; BP diastolic 59–90; PULSE 60–73; RESP 18; O2SAT 94–97
[2016-07-24] MEDS: Heparin 5,000 Unit/mL Inj SUBQ SCH ×3 (02:12→17:24)
[2016-07-24] MEDS: Sodium Chloride LOK Flush 10 mL Syringe IVFLUSH SCH ×3 (02:12→17:21)
--- NOTE | 2016-07-24 05:06 | NUR ---
Tele/Sleep Patient in sinus rhythm with 1st degree AV block. Rates in the 60s. Patient sleeping soundly all night. CPAP in place. Continue to monitor.
[2016-07-24] MEDS: Insulin LISPRO 300 Unit/3 mL Inj SUBQ SCH ×4 (08:34→21:57)
[2016-07-24] MEDS: cloNIDine 0.1 mg Tablet PO SCH ×2 (08:36→20:16)
[2016-07-24] MEDS: Amoxicillin-Clav 875-125 mg Tablet PO SCH ×2 (08:36→20:16)
[2016-07-24] MEDS: Potassium Chloride 20 mEq SR Tablet PO SCH ×2 (08:38→20:17)
[2016-07-24] MEDS: Isosorbide Mononitrate 60 mg ER24 Tablet PO SCH (08:38)
--- NOTE | 2016-07-24 08:45 | NUR ---
PREETHI signed KYLE Lagunas
--- NOTE | 2016-07-24 10:13 | PCM.PNMED ---
Subjective Date of Service Jul 24, 2016 Subjective The patient's blood pressure continues to improve however he has had considerable more out than in and has had a slight bump in his renal function. Otherwise she denies any chest pain, shortness of breath, cough or wheezing. Exam Vital Signs Vital Sign - Last Date Time Temp Pulse Resp B/P Pulse Ox O2 Delivery O2 Flow Rate FiO2 07/24/16 09:48 70 07/24/16 09:01 36.7 18 179/90 97 CPAP Intake and Output 07/23/16 07/23/16 07/24/16 Cumulative From/Thru 15:00 23:00 07:00 07/15/16 16:40 - 07/24/16 06:28 Intake Total 1236 ml 910 ml 53965 ml Output Total 2025 ml 1300 ml 22520 ml Balance -789 ml -390 ml -13208 ml Intake Oral 1236 ml 880 ml 91144 ml IV Total 30 ml 30 ml Output Urine Total 2025 ml 1300 ml 67919 ml # Bowel Movements 1 0 4 Exam Neck is supple without adenopathy thyromegaly or jugular venous distention. Lungs were clear to auscultation. Heart was regular with a soft systolic murmur. Abdomen soft without any tenderness or rebound guarding masses or hepatosplenomegaly. Some exertional shortness clubbing cyanosis or edema. Skin turgor slightly diminished and no evidence of any rashes. Lab and Diagnostics Result Diagram: 07/22/16 0845 07/24/16 0713 Assessment & Plan Impression #1 chronic kidney disease stage III #2 diabetic nephropathy #3 hypertension with hypertensive heart disease and hypertensive nephrosclerosis with possible primary hyperaldosteronism Recommendation #1 I would like to hold his diuretics for a day and we can probably send him home in the morning once his body has a chance to reach his baseline. I have gone ahead and discontinued his some torsemide. GI Prophylaxis: Not indicated VTE Mechanical Devices: Intermittant Pneumatic CD Resuscitation Status: CPR: Attempt Resuscitation Bennie Vargas DO Jul 24, 2016 10:13
--- NOTE | 2016-07-24 11:28 | NUR ---
Social Work: Readiness for d/c Data: Pt is on day 9 of hospitalization. EMR reviewed, pt discussed in rounds. MD states pt likely to d/c tomorrow. CLOTH REELER met with pt who states he has a ride home at d/c with family and he is not sure if he needs HH or not anymore. CLOTH REELER will check in with PT and MD regarding HH. CLOTH REELER will continue to follow. Assessment: Pt who is independent at baseline. Plan: Pt will d/c home via POV likely tomorrow with family with possible HH. CLOTH REELER will continue to follow. KYLE Lagunas
--- NOTE | 2016-07-24 12:02 | PCM.PNMED ---
Subjective Date of Service Jul 24, 2016 Subjective He is doing well. No chest pain, palpitations, or dyspnea. No abdominal pain, nausea, or diarrhea. He denies feeling thirsty. Exam Vital Signs Vital Sign - Last Date Time Temp Pulse Resp B/P Pulse Ox O2 Delivery O2 Flow Rate FiO2 07/24/16 11:53 Room Air 07/24/16 09:48 70 07/24/16 09:01 36.7 18 179/90 97 Intake and Output 07/23/16 07/23/16 07/24/16 Cumulative From/Thru 15:00 23:00 07:00 07/15/16 16:40 - 07/24/16 06:28 Intake Total 1236 ml 910 ml 05163 ml Output Total 2025 ml 1300 ml 13545 ml Balance -789 ml -390 ml -37079 ml Intake Oral 1236 ml 880 ml 48144 ml IV Total 30 ml 30 ml Output Urine Total 2025 ml 1300 ml 33045 ml # Bowel Movements 1 0 4 Exam Oriented 3, fluent speech Normal head Anicteric sclera Neck supple. Lungs are clear with normal effort Heart is regular without murmur Abdomen soft nondistended. Extremities with 1-2+ edema, vastly improved. Chronic right hemiparesthesis Lab and Diagnostics Result Diagram: 07/22/16 0845 07/24/16 0713 Assessment & Plan 1. Acute Kidney Injury on Chronic kidney disease, stage III. POA. Improving - Nephrology as recommended holding torsemide today and giving him 1 more day to see where his creatinine ends up. 2. Anasarca, acute. POA. Improving -No changes. Holding diuretics today 3. Essential Hypertension. poorly controlled. ongoing - This is doing relatively well. No changes to medical therapy except for holding torsemide today. 4. MSSA of multiple bilateral lower extremity wounds, chronicity unknown, present on admission. Ongoing - c/w wound care 5. Acute left ankle pain. not poa. -This is improved. 6. Obesity, chronic. 7. Diabetes mellitus, non-insulin using, chronic and uncontrolled. Still hyperglycemic. We will add Lantus 10 units today subcutaneous. 8. CVA with chronic right hemiparesis. POA. Dysphagia discharge home tomorrow, July 25 Jose David Hoffman MD Jul 23, 2016 14:27 Pain Evaluation: Adequate Pain Control GI Prophylaxis: Not indicated VTE Mechanical Devices: Intermittant Pneumatic CD Resuscitation Status: CPR: Attempt Resuscitation Time spent 20 minutes Jose David Hoffman MD Jul 24, 2016 12:02
[2016-07-24] MEDS ORDERED: Insulin GLARgine 100 Unit/mL Syringe SUBQ ONE (12:05)
--- NOTE | 2016-07-24 14:04 | NUR ---
Activity/dressing change Pt up in chair for several hours this am, walked with PT and walked a loop in albert with RN Dressing changes done to both lower legs. Pt stated his pelvis was hurting after sitting in chair, transferred to bed, pt stated pain much better.
[2016-07-25 00:32] VITALS: BP 132/71; PULSE 67; RESP 16; O2SAT 94
[2016-07-25] MEDS: Heparin 5,000 Unit/mL Inj SUBQ SCH ×3 (00:57→12:04)
[2016-07-25] MEDS: Sodium Chloride LOK Flush 10 mL Syringe IVFLUSH SCH ×3 (00:57→12:04)
[2016-07-25 04:41] VITALS: BP 153/88; PULSE 66; RESP 16; O2SAT 98
--- NOTE | 2016-07-25 05:22 | NUR ---
post void residual/ Activity pt void only 300 until 5 am. at 0500 encourage pt to try voiding. pt void 500 ml, and checked post void residual 327ml. no complaints of pain during this shift. pt ambulated to the restroom with cane and 1 PA. Bed is locked and in low position. call light within reach. will continue to monitor.
[2016-07-25 06:00] VITALS: PULSE 71
[2016-07-25 08:04] VITALS: BP 162/90; PULSE 60; RESP 12; O2SAT 92
[2016-07-25] MEDS ORDERED: SPIR25TA PO (08:16)
[2016-07-25] MEDS: Insulin LISPRO 300 Unit/3 mL Inj SUBQ SCH ×2 (08:16→12:20)
[2016-07-25] MEDS ORDERED: LABE200T PO (08:19)
[2016-07-25] MEDS: Amoxicillin-Clav 875-125 mg Tablet PO SCH (08:20)
[2016-07-25] MEDS: Isosorbide Mononitrate 60 mg ER24 Tablet PO SCH (08:20)
[2016-07-25] MEDS: cloNIDine 0.1 mg Tablet PO SCH (08:21)
[2016-07-25] MEDS: Potassium Chloride 20 mEq SR Tablet PO SCH (08:23)
--- NOTE | 2016-07-25 08:23 | PCM.DIMED ---
Discharge Instructions Date of Service Jul 25, 2016 Dates of Hospitalization Jul 15, 2016 at 15:35 Discharge Diagnosis Discharge Diagnosis Acute kidney injury; accelerated hypertension; pedal edema; lower extremity stasis ulcers Medication Instructions Several of your medicines have been changed. These are listed in the discharge instructions. 2 new prescriptions for Spironolactone and labetalol have been transmitted to your [facility] pharmacy. Diet Low fat, Low Sodium Activity Limited until seen by PCP Patient Instructions Recommend home health RN for medication monitoring, regular body weight and blood pressure checks. Follow-up plan You should contact your primary care doctor for an appointment within 1 week for blood pressure, kidney and potassium check. He should follow-up with your cardiology doctor within 1 month due to changes in your cardiac medications. You should ask your primary care provider for a referral to a acquisition lead due to your chronic kidney disease. He should follow-up with your usual care provider for wound care to your lower extremity ulcers. Jayden Cox MD Jul 25, 2016 08:23
[2016-07-25 09:50] VITALS: PULSE 70
--- NOTE | 2016-07-25 11:14 | PCM.PNMED ---
Subjective Date of Service Jul 25, 2016 Subjective The patient appears to be stable. His blood pressure continues to improve and I feel that his renal function is also improving. Offers no new complaints and from my point of view can be discharged home with the primary team. Exam Vital Signs Vital Sign - Last Date Time Temp Pulse Resp B/P Pulse Ox O2 Delivery O2 Flow Rate FiO2 07/25/16 09:50 70 07/25/16 09:31 CPAP/BIPAP 07/25/16 08:04 36.9 12 162/90 92 Intake and Output 07/24/16 07/24/16 07/25/16 Cumulative From/Thru 15:00 23:00 07:00 07/15/16 16:40 - 07/25/16 06:10 Intake Total 1301 ml 474 ml 88381 ml Output Total 1550 ml 1050 ml 21572 ml Balance -249 ml -576 ml -40012 ml Intake Oral 1301 ml 474 ml 18487 ml IV Total 30 ml Output Urine Total 1550 ml 1050 ml 73549 ml # Bowel Movements 1 5 Exam Neck is supple without adenopathy thyromegaly or jugular venous distention. Lungs were clear to auscultation. Heart was regular rhythmical with a soft systolic murmur. Abdomen soft without any tenderness rebound guarding masses or hepatosplenomegaly. She is not shows a clubbing cyanosis or edema. Lab and Diagnostics Result Diagram: 07/22/16 0845 07/24/16 0713 Assessment & Plan Impression #1 CK D stage III number to diabetic nephropathy #3 hypertension with hypertensive heart disease and hypertensive nephrosclerosis for PRIMARY hyperaldosteronism Aziz labs are pending Recommendations #1 patient to be discharged today and I would like to see him in the office in approximately one month. GI Prophylaxis: Not indicated VTE Mechanical Devices: Intermittant Pneumatic CD Resuscitation Status: CPR: Attempt Resuscitation Bennie Vargas DO Jul 25, 2016 11:14
--- NOTE | 2016-07-25 12:33 | NUR ---
Discharge Patient DC home with daughter via private vehicle. Teaching done on worsening CHF and changes in medications. Pt is understanding of his medications to the point of knowing his potassium would need to be checked at his next follow up appointment which he will schedule [facility] this week. Confirmed with Dr. Cox prior to leaving that pt would go home on both his home Furosemide and new Spironolactone while stopping Potassium and Augmentin. 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 Further diabetic teaching would be beneficial; multiple pamphlets were sent with pt on diabetic care. He will continue to see wound care as an outpt for his BLE wounds; dressings changed per order details prior to pt leaving.
--- NOTE | 2016-07-25 17:11 | PCM.DC.MED ---
Discharge Summary Date of Service Jul 25, 2016 Dates of Hospitalization Date of Hospital Admission Jul 15, 2016 at 15:35 Date of Discharge: Jul 25, 2016 Providers: Admitting Physician: Jose David Hoffman MD Primary Care Physician: Other,Physician Attending Physician: Jose David Hoffman MD Diagnosis at Time of Discharge Diagnosis at Time of Discharge Acute kidney injury; accelerated hypertension; pedal edema; lower extremity stasis ulcers Consultations Nephrology, Dr. Bennie Vargas Impression #1 CK D stage III number to diabetic nephropathy #3 hypertension with hypertensive heart disease and hypertensive nephrosclerosis for PRIMARY hyperaldosteronism Recommendations #1 patient to be discharged today and I would like to see him in the office in approximately one month. . Procedures XRay, CTs & MRIs PROCEDURE: US RENAL SONOGRAM FINDINGS: Kidneys: Kidneys are normal in size. Right kidney measures 10.9 cm long; left kidney measures 9.9 cm long. 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 Right renal cortical thickness is 1.5 cm; left renal cortical thickness is 1.1 cm. Renal cortical echotexture is normal. No hydronephrosis or nephrolithiasis. No suspicious solid mass lesions. Bladder: Pre-void bladder volume is 600 mL. Post-void residual is 252 mL. Pre -void images demonstrate no intraluminal masses or stones. On pre-void images, no ureteral jets are noted with color Doppler interrogation. (Of note, ureteral jets may not be detectable in up to 25% of cases due to insufficient differences in specific gravity between ureteral and bladder urine). IMPRESSION: Increased postvoid residual, suggesting bladder outlet obstruction and/or neurogenic bladder. Dictated by: Nik Gtz M.D. on 07/17/2016 at 19:09 . Cardiac Echo Impression Echocardiogram Report Name: ARNOLD JOAQUIN RStudy Date: 07/16/2016 Height: 71 in Hospital Exam Location: [facility] Weight: 267 lb Gender: Male BSA: 2.4 m2 : 1955 Age: 61 yrs BP: 175/83 mmHg Reason For Study: Congestive Heart Failure Ordering Physician: Performed By: Anahi Mcallister [facility] Interpretation Summary 1) Moderate concentric left ventricular hypertrophy with normal size, wall motoin, and systolic function (EF 60-65%). 2) Normal right ventricular size and function. 3) No significant valvular abnormalities. 4) Severe left atrial enlargement present. 5) Small to moderate pericardial effusion present circumferentially. No echo/doppler evidence of tamponade physiology. 6) Significant hypertension present during the study (BP 175/83). 7) Findings consistent with hypertensive heart disease. 8) No prior Echo available for comparison. . Brief History This is a pleasant 61-year-old man sent over from cardiology as a direct admit for volume overload. He has progressive severe edema. Recently in spite of being on Lasix at 80 mg, 3 tabs in the morning he has had progressive leg edema with weight increase and seeping of both legs. He is also had some dyspnea at rest, with exertion and some orthopnea. He has no known history of CAD and no recent echo. His last EKG is not available. He denies recent chest pain. He has been more short of breath since last Tuesday indefinitely since Tuesday. He has been more sedentary recently his sister notices them more fatigued and sleeps quite easily. Hospital Course 1. Acute Kidney Injury on Chronic kidney disease, stage III. POA. He had been on Lasix 240 mg today per day. Admitting serum creatinine was 1.5, rising to 3.45 due to aggressive diuresis. Diuretics subsequently held. Stable creatinine of 1.75-1.8 for 3 days prior to discharge. - Plan outpatient nephrology follow-up with Dr. Vargas 2. Anasarca, acute. POA. Improving - Spironolactone was added to his Lasix and minoxidil. 3. Essential Hypertension. poorly controlled. ongoing - Discontinued carvedilol and verapamil - Added labetalol and spironolactone - He continues on prior doses of clonidine, hydralazine, minoxidil, losartan 4. MSSA of multiple bilateral lower extremity wounds, chronicity unknown, present on admission. Ongoing - following up with his previous wound care provider 5. Acute left ankle pain. -This is improved without specific intervention. 6. Obesity, chronic. 7. Diabetes mellitus, non-insulin using, chronic and uncontrolled. Still hyperglycemic. - Defer to PCP for augmentation of glycemic control- . 8. CVA with chronic right hemiparesis. POA. . Exam Vital Signs (Last) Date Time Temp Pulse Resp B/P Pulse Ox O2 Delivery O2 Flow Rate FiO2 07/25/16 08:04 36.9 60 12 162/90 92 Room Air Exam General: Middle-aged man in no acute distress HEENT: sclerae anicteric, oral mucosa moist Neck: no JVD Chest: clear to auscultation Cardiac: S1S2, no murmur Abdomen: BS normal, non-tender Extremities: No edema; bilateral foot ulcerations with bandage, postsurgical Neuro: A&O, right hemiparesis, motor strength 5/5 on the left, 3/5 on right, Test 07/15/16 17:37 07/16/16 08:00 07/16/16 16:23 07/17/16 05:52 Prothrombin Time 10.7sec (8.1-12.5) Prothromb Time International Ratio 1.00ratio Activated Partial Thromboplast Time 29.9sec (22.8-33.0) Hemoglobin A1c 8.2% (4.8-5.6) Uric Acid 10.7mg/dL (2.6-7.2) Total Bilirubin 0.8mg/dL (0.0-1.2) Aspartate Amino Transf (AST/SGOT) 15U/L (0-50) Alanine Aminotransferase (ALT/SGPT) 6U/L (0-44) Alkaline Phosphatase 56U/L (25-160) Prealbumin 26mg/dL (20-40) Vitamin B12 Level 550pg/mL (211-946) Folate 18.3ng/mL (>3.0) Thyroid Stimulating Hormone (TSH) 1.380uIU/mL (0.450-4.500) Triglycerides Level 138mg/dL (0-149) Cholesterol Level 134mg/dL (100-199) LDL Cholesterol, Calculated 71.400mg/dL (0-99) VLDL Cholesterol 27.600mg/dL HDL Cholesterol 35mg/dL (>39) Cholesterol/HDL Ratio 3.83 (0.0-4.4) Troponin T < 0.010ug/L (0.0-0.011) Lactic Acid Level 0.7mmol/L (0.4-2.0) Test 07/17/16 06:12 07/17/16 15:17 07/18/16 08:35 07/19/16 10:22 Total Protein 6.2g/dL (6.0-8.5) Albumin 3.3g/dL (2.9-4.4) Globulin (PEP) 2.9g/dL (2.2-3.9) Albumin/Globulin Ratio 1.1 (0.7-1.7) Ctwwh-4-Zuptraese 0.2g/dL (0.0-0.4) Peiid-8-Sjhsskvgk 0.7g/dL (0.4-1.0) Beta Globulins 1.0g/dL (0.7-1.3) Gamma Globulins 0.9g/dL (0.4-1.8) Serum Monoclonal Protein Not observedg/dL Protein Electrophoresis Comment Comment (.) Protein Electrophoresis Interpret Comment (.) Urine Color Yellow (YELLOW) Urine Appearance Clear (CLEAR,HAZY) Urine pH 6.5 (5.0-8.0) Urine Specific [place] 1.010 (1.003-1.035) Urine Protein Tracemg/dL (NEG,TRACE) Urine Glucose (UA) Negativemg/dL (NEGATIVE) Urine Ketones Negativemg/dL (NEGATIVE) Urine Occult Blood Negative (NEGATIVE) Urine Nitrite Negative (NEGATIVE) Urine Bilirubin Negative (NEGATIVE) Urine Urobilinogen 1.0mg/dL (NORMAL) Urine Leukocyte Esterase Negative (NEGATIVE) Urine RBC 0-2/hpf (0-2) Urine WBC 0-5/hpf (0-5) Urine Epithelial Cells None/hpf (NONE-MOD) Urine Crystals None seen (NONE SEEN) Urine Bacteria Few/hpf (NONE-FEW) Urine Hyaline Casts None/lpf (NONE) Urine Granular Casts None seen (NONE SEEN) Urine Waxy Casts None seen (NONE SEEN) Urine Red Blood Cell Casts None seen (NONE SEEN) Urine White Blood Cell Casts None seen (NONE SEEN) Urine Mucus None seen (None Seen) Urine Trichomonas None seen (NONE SEEN) Urine Yeast None (NONE SEEN) Urinalysis Comment None Urine Random Creatinine 102mg/dL (22-328) Urine Random Total Protein 31mg/dL (0-15) Urine Protein/Creatinine Ratio 0.30 Pro-B-Type Natriuretic Peptide 535.4pg/mL (0-210) Procalcitonin 0.07ng/mL (See Comment) Test 07/20/16 07:20 07/22/16 08:45 07/24/16 07:13 Neutrophils (%) (Auto) 64.5% (40-74) Lymphocytes (%) (Auto) 26.3% (14-46) Monocytes (%) (Auto) 6.1% (4-12) Eosinophils (%) (Auto) 2.6% (0-5) Basophils (%) (Auto) 0.5% (0-3) Phosphorus Level 7.0mg/dL (2.5-4.9) Magnesium Level 2.4mg/dL (1.6-2.6) White Blood Count 5.1th/mm3 (3.8-10.1) Red Blood Count 4.38mil/mm3 (4.40-5.80) Hemoglobin 12.7g/dL (13.8-17.2) Hematocrit 36.4% (41.0-50.0) Mean Corpuscular Volume 83.1fL (81-100) Mean Corpuscular Hemoglobin 29.0pg (27.0-35.0) Mean Corpuscular Hemoglobin Concent 34.9% (32.0-37.0) Red Cell Distribution Width 13.9% (12.3-15.4) Platelet Count 160bil/L (150-400) Sodium Level 141mEq/L (134-144) Potassium Level 4.6mEq/L (3.5-5.2) Chloride Level 96mEq/L (97-108) Carbon Dioxide Level 28mmol/L (18-29) Blood Urea Nitrogen 75mg/dL (8-27) Creatinine 1.81mg/dL (0.76-1.27) Estimat Glomerular Filtration Rate 40mL/min (>59) Glucose Level 246mg/dL (60-99) Calcium Level 9.7mg/dL (8.5-10.1) Discharge Medications Discharge Medications Allopurinol (Allopurinol) 100 Mg Tablet 100 MG PO DAILY (Reported) Aspirin Chew (Aspirin Chew) 81 Mg Chew 81 MG PO DAILY (Reported) Cholecalciferol (Vitamin D3) (Vitamin D) 1,000 Unit Capsule 2,000 UNIT PO DAILY (Reported) Clonidine (Clonidine) 0.3 Mg Tablet 0.3 MG PO TID (Reported) Clopidogrel Bisulfate (Plavix) 75 Mg Tablet 75 MG PO DAILY (Reported) Furosemide (Furosemide) 80 Mg Tab 240 MG PO DAILY (Reported) Gabapentin (Gabapentin) 600 Mg Tablet 600 MG PO DAILY (Reported) Gabapentin (Gabapentin) 600 Mg Tablet 600 MG PO Noon (Reported) Gabapentin (Gabapentin) 600 Mg Tablet 1,200 MG PO HS (Reported) Hydralazine (Hydralazine) 100 Mg Tablet 100 MG PO TID (Reported) Isosorbide MN ER (Isosorbide MN ER) 60 Mg Tab.er.24h 60 MG PO DAILY (Reported) Labetalol (Labetalol) 200 Mg Tablet 200 MG PO BID Prescribed by: NAVI WINSLOW MD Losartan Potassium (Losartan Potassium) 100 Mg Tablet 100 MG PO DAILY (Reported ) Minoxidil (Minoxidil) 10 Mg Tablet 5 MG PO DAILY (Reported) Multivitamin (Multivitamins) 1 Each Capsule 1 EACH PO DAILY (Reported) [place]-3 Acid Ethyl Esters (Lovaza) 1 Gm Capsule 3 GM PO DAILY (Reported) Simvastatin (Simvastatin) 10 Mg Tablet 10 MG PO HS (Reported) Spironolactone (Aldactone) 25 Mg Tablet 50 MG PO BID Prescribed by: NAVI WINSLOW MD Tamsulosin (Flomax) 0.4 Mg Capsule 0.4 MG PO DAILY (Reported) As needed Albuterol HFA (Proair HFA) 8.5 Gm Hfa.aer.ad 2 PUFFS INHALATION Q4H PRN PRN For Shortness of Breath (Reported) Docusate Sodium (Colace) 100 Mg Capsule 200 MG PO BID PRN PRN For Constipation ( Reported) Additional med instructions Several of your medicines have been changed. These are listed in the discharge instructions. 2 new prescriptions for Spironolactone and labetalol have been transmitted to your [facility] pharmacy. Followup Plan Follow-up plan You should contact your primary care doctor for an appointment within 1 week for blood pressure, kidney and potassium check. He should follow-up with your cardiology doctor within 1 month due to changes in your cardiac medications. You should ask your primary care provider for a referral to a fatback trimmer due to your chronic kidney disease. He should follow-up with your usual care provider for wound care to your lower extremity ulcers. Discharge Diet: Low fat, Low Sodium Discharge Activity: Limited until seen by PCP Patient Instructions Recommend home health RN for medication monitoring, regular body weight and blood pressure checks. Time spent 35 minutes copies to: Bennie Vargas Jeffrey W MD Jul 25, 2016 08:24
[2016-07-27 08:14] LABS: Renin Activity 0.22 ng/mL/hr (.)
== END 2016-07-25 12:30 | disposition home or self-care (01) | DRG 948 ==
LOC: MPC 15:35 → MOC 07-20 03:42
PROVIDERS: ADMIT Hospitalist; ATTEND Hospitalist
DX: R60.1 Generalized edema (principal); I69.351 Hemiplegia and hemiparesis following cerebral infarction affecting right dominant side; N17.9 Acute kidney failure, unspecified; E87.70 Fluid overload, unspecified; I13.10 Hypertensive heart and chronic kidney disease without heart failure, with stage 1 through stage 4 chronic kidney disease, or unspecified chronic kidney disease; E11.22 Type 2 diabetes mellitus with diabetic chronic kidney disease; E11.21 Type 2 diabetes mellitus with diabetic nephropathy; N18.3 Chronic kidney disease, stage 3 (moderate); E11.65 Type 2 diabetes mellitus with hyperglycemia; E66.9 Obesity, unspecified; Z68.35 Body mass index [BMI] 35.0-35.9, adult; G47.33 Obstructive sleep apnea (adult) (pediatric); I87.2 Venous insufficiency (chronic) (peripheral); S81.801A Unspecified open wound, right lower leg, initial encounter; S81.802A Unspecified open wound, left lower leg, initial encounter; V29.9XXA Motorcycle rider (driver) (passenger) injured in unspecified traffic accident, initial encounter; L08.9 Local infection of the skin and subcutaneous tissue, unspecified; B95.61 Methicillin susceptible Staphylococcus aureus infection as the cause of diseases classified elsewhere; Z16.29 Resistance to other single specified antibiotic; N40.0 Benign prostatic hyperplasia without lower urinary tract symptoms; M25.572 Pain in left ankle and joints of left foot

== ENCOUNTER 2016-08-04 13:45 | Observation (INO) | payer MEDICARE ==
[~2016-08-04] VITALS: Ht 180.3 cm; Wt 114.2 kg
[~2016-08-04 13:45] MED LIST changes: +ALBU8.5H2 INHALATION; -ALLO100T PO; -AMLO-39 PO; +ASPI81TA3 PO; -ASPI81TA40 PO; -CEPH-512 PO; +CHOL100045 PO; -CHOL200041 PO; -CLON0.1T14 PO; +CLON0.3T PO; -CLOP75TA14 PO; +CLOP75TA3 PO; -COZ100 PO; +DOCU-41 PO; +FRSM80T PO; -FUR80 PO; +GABA600T2 PO; -GLU500 PO; +HYDR100T27 PO; -IMD30 PO; +ISOS60TA2 PO; +LABE200T PO; +LOSA100T29 PO; -METOPROLOL PO; +MINO10TA PO; +MULT1CAP33 PO; +OMEG1CAP2 PO; -OMEG1CAP25 PO; -OMEP20CA11 PO; +SIMV10TA4 PO; -SIMV20TA PO; +SPIR25TA PO; +TAMS0.4C98 PO; +ZYL100 PO; -[UNRECOGNIZED DRUG - CODE] PO
[2016-08-04 13:48] VITALS: BP 124/64; PULSE 84; RESP 16; O2SAT 97
--- NOTE | 2016-08-04 16:07 | ED.REPORT ---
HPI-General Illness Date of Service Aug 04, 2016 ED Provider: Uriel Fung MD Pt is a 61 y/o male w/ a hx of diabetes, asthma, hyperlipidemia, hypertension, CHF, stroke, presenting to the ED w/ family by request of 3[address] grade reading teacher Dr. Sims who contacted [facility]'s 3rd grade reading teacher Dr. Vargas because of abnormal kidney function test results. He has no complaints at this time. He had 3 episodes of diarrhea yesterday. He denies CP, bloody stool, SOB, fever, cough, nausea, vomiting. Police Matron: Dr. Sims in [place] Nursing Notes Stated Complaint: POSS KIDNEY STONE Chief Complaint: General Complaint Nursing Notes Reviewed: Yes ([employer], [employer] not reconciled) Allergies: Coded Allergies: No Allergy Information Available (Verified Allergy, Unknown, RENAL INSUFFICIENCY DUE TO UNKNOWN ANTIBIOTIC, 12/09/15) Uncoded Allergies: antibiotic of unknown (Allergy, Unknown, 05/10/14) Scheduled Allopurinol (Allopurinol) 100 Mg Tablet 100 MG PO DAILY Aspirin Chew (Aspirin Chew) 81 Mg Chew 81 MG PO DAILY Cholecalciferol (Vitamin D3) (Vitamin D) 1,000 Unit Capsule 2,000 UNIT PO DAILY Clonidine (Clonidine) 0.3 Mg Tablet 0.3 MG PO TID Clopidogrel Bisulfate (Plavix) 75 Mg Tablet 75 MG PO DAILY Furosemide (Furosemide) 80 Mg Tab 240 MG PO DAILY Gabapentin (Gabapentin) 600 Mg Tablet 600 MG PO DAILY Gabapentin (Gabapentin) 600 Mg Tablet 600 MG PO Noon Gabapentin (Gabapentin) 600 Mg Tablet 1,200 MG PO HS Hydralazine (Hydralazine) 100 Mg Tablet 100 MG PO TID Isosorbide MN ER (Isosorbide MN ER) 60 Mg Tab.er.24h 60 MG PO DAILY Labetalol (Labetalol) 200 Mg Tablet 200 MG PO BID Losartan Potassium (Losartan Potassium) 100 Mg Tablet 100 MG PO DAILY Minoxidil (Minoxidil) 10 Mg Tablet 5 MG PO DAILY Multivitamin (Multivitamins) 1 Each Capsule 1 EACH PO DAILY [place]-3 Acid Ethyl Esters (Lovaza) 1 Gm Capsule 3 GM PO DAILY Simvastatin (Simvastatin) 10 Mg Tablet 10 MG PO HS Spironolactone (Aldactone) 25 Mg Tablet 50 MG PO BID Tamsulosin (Flomax) 0.4 Mg Capsule 0.4 MG PO DAILY Scheduled PRN Albuterol HFA (Proair HFA) 8.5 Gm Hfa.aer.ad 2 PUFFS INHALATION Q4H PRN PRN For Shortness of Breath Docusate Sodium (Colace) 100 Mg Capsule 200 MG PO BID PRN PRN For Constipation General Time Seen by MD: 16:03 Chief Complaint Other (Abnormal kidney function labs) Hx Obtained From: Patient Arrived By: Walk-in Sudden in Onset?: No Onset Occurred: Onset unknown Severity: Current: No pain currently Severity: Maximum: No pain Past Medical History Past Medical History Notes: Patient admitted 07/15- for acute kidney injury, accelerated hypertension, and pedal edema for nephrology consult by Dr. Vargas, time of discharge labs for hyper aldosteronism were pending. Past Medical History ho Reactive airways Stroke 2006 with residual R-sided weakness obstructive sleep apnea Gout in right foot Diastolic CHF Hypertension Asthma Diabetes - Type II Hyperlipidemia Chronic leg ulcerations follow the wound care center BPH Renal insufficiency Hyperaldosteronism (new dx 07/2016) Past Surgical History ORIF fingers with reconstruction Family History Reviewed, not relevant Smoking History Never Smoker Social History Alcohol Use: "Social" Drug Use: Denies drug use Other Social History: Good social support, Occupation Unemployed Ambulatory Status Cane Review of Systems Full Review of Systems Constitutional: Denies: Chills, Fever Respiratory: Denies: Non-productive cough, Shortness of breath Cardiovascular: Denies: Chest pain, Edema GI: Reports: Diarrhea, Denies: Abdominal pain, Bloody/tarry stool, Nausea, Vomiting Male: Denies Dysuria Complete sys rev & neg: except as marked. Physical Exam Vital Signs Vital Signs Date Time Temp Pulse Resp B/P Pulse Ox O2 Delivery O2 Flow Rate FiO2 08/04/16 17:12 36.4 72 17 122/74 96 Room Air 08/04/16 16:28 75 17 109/57 96 Room Air 08/04/16 13:48 36.7 84 16 124/64 97 Room Air Initial VS: Reviewed, Vital signs normal Head / Eyes: PERRL ENT: Mucous membranes moist, Conjunctiva normal, No scleral icterus Neck: Supple, Full range of motion Respiratory: Breath sounds normal, Clear to auscultation, No respiratory distress Cardiovascular: Regular rate & rhythm, Heart sounds normal, Intact distal pulses Abdomen / GI: Soft, Non-tender, No guarding, No rebound, No distention Skin: Warm, Dry, No cyanosis Neurologic: Alert, Oriented, Nonfocal Psychiatric: Mood/affect normal, Behavior normal, Normal thought content General/Constitutional: Awake, Alert, No acute distress, Cooperative, Not toxic appearing Appearance / Presentation: Positive: Obese Head / Eyes: Atraumatic, Normocephalic, PERRL, EOMI Conjunctiva mildly injected Lower Extremity / Pelvis / MS: No deformity, Neurologic intact, Vascular intact Right leg prosthesis Interpretation & Diagnostics Interpretation & Diagnostics: Recent Send out labs were indeed positive for hyperaldosteronism per the 3rd grade reading teacher Lab Results Interpretation Result Diagram: 08/04/16 1600 08/04/16 1600 Test 08/04/16 16:00 08/04/16 17:57 White Blood Count 5.2th/mm3 (3.8-10.1) Red Blood Count 4.03mil/mm3 (4.40-5.80) Hemoglobin 11.6g/dL (13.8-17.2) Hematocrit 33.6% (41.0-50.0) Mean Corpuscular Volume 83.4fL (81-100) Mean Corpuscular Hemoglobin 28.8pg (27.0-35.0) Mean Corpuscular Hemoglobin Concent 34.5% (32.0-37.0) Red Cell Distribution Width 13.6% (12.3-15.4) Platelet Count 187bil/L (150-400) Neutrophils (%) (Auto) 59.3% (40-74) Lymphocytes (%) (Auto) 26.5% (14-46) Monocytes (%) (Auto) 6.6% (4-12) Eosinophils (%) (Auto) 6.6% (0-5) Basophils (%) (Auto) 0.8% (0-3) Sodium Level 141mEq/L (134-144) Potassium Level 4.2mEq/L (3.5-5.2) Chloride Level 99mEq/L (97-108) Carbon Dioxide Level 27mmol/L (18-29) Blood Urea Nitrogen 91mg/dL (8-27) Creatinine 2.22mg/dL (0.76-1.27) Estimat Glomerular Filtration Rate 32mL/min (>59) Glucose Level 294mg/dL (60-99) Calcium Level 9.7mg/dL (8.5-10.1) Magnesium Level 2.3mg/dL (1.6-2.6) Total Bilirubin 0.3mg/dL (0.0-1.2) Aspartate Amino Transf (AST/SGOT) 13U/L (0-50) Alanine Aminotransferase (ALT/SGPT) 7U/L (0-44) Alkaline Phosphatase 57U/L (25-160) Troponin T < 0.010ug/L (0.0-0.011) Total Protein 7.4g/dL (6.4-8.4) Albumin 4.2g/dL (3.4-5.0) Urine Color Straw (YELLOW) Urine Appearance Clear (CLEAR,HAZY) Urine pH 5.5 (5.0-8.0) Urine Specific [place] 1.015 (1.003-1.035) Urine Protein Negativemg/dL (NEG,TRACE) Urine Glucose (UA) Negativemg/dL (NEGATIVE) Urine Ketones Negativemg/dL (NEGATIVE) Urine Occult Blood Negative (NEGATIVE) Urine Nitrite Negative (NEGATIVE) Urine Bilirubin Negative (NEGATIVE) Urine Urobilinogen Normalmg/dL (NORMAL) Urine Leukocyte Esterase Negative (NEGATIVE) Urine RBC 0-2/hpf (0-2) Urine WBC 0-5/hpf (0-5) Urine Epithelial Cells None/hpf (NONE-MOD) Urine Crystals None seen (NONE SEEN) Urine Bacteria None/hpf (NONE-FEW) Urine Hyaline Casts None/lpf (NONE) Urine Granular Casts None seen (NONE SEEN) Urine Waxy Casts None seen (NONE SEEN) Urine Red Blood Cell Casts None seen (NONE SEEN) Urine White Blood Cell Casts None seen (NONE SEEN) Urine Mucus None seen (None Seen) Urine Trichomonas None seen (NONE SEEN) Urine Yeast None (NONE SEEN) Urinalysis Comment None Urine Culture Reflexed Not indicated Lab Results Interpretation: CBC normal CMP increasing BUN and creatinine, hyperglycemia Re-Eval/Medical Decision Med Decision/Clinical Course This is a 61-year-old male who presents to the emergency department indicating that he was called by both his primary care physician's office, and the nephrologists office to come directly to the emergency department. He states he assumed as "a kidney stone", because this was a kidney doctor was leading the request. But he states he has no specific complaint and does not know the details of what sent it in. He has been seen by his PCP, and has had low labs demonstrating increasing BUN to over 100, and increasing creatinine, and the case been discussed 5 by the PCP in [place] with his 3rd grade reading teacher here-and the recommendation was to come in for admission. Dr. Vargas 3rd grade reading teacher called emergency department and asked that labs be drawn, and that he be notified when the patient arrived. On arrival the patient appears obese, chronically ill, but not in any acute distress. He is normal vital signs-ineffective blood pressure is low normal, he has had problems with hypertension and medications have been recently change. Dr. Vargas 3rd grade reading teacher, came and saw the patient department, and recommends admission and gentle hydration overnight. He will follow. The case has been discussed with the hospitalist.. Source of Hx: Old records Time of Eval: 17:09 Patient Status: Condition improved Re-Evaluation/Progress Note: Pt rechecked. Informed pt of need for admission due to abnormal lab values. Pt understands and agrees with plan for admission. All questions addressed. Consultation #1: Referral / Consult Name: Bennie Vargas DO Consulted With: Nephrology Call Returned at: 17:00 Core Drill Operator Helper: Will see patient, Agrees with eval, Agrees with plan Note: Discussed case in person. He would like the patient to be admitted for fluids and observation. After he reviewed the labs, he believes the patient is experiencing primary hyperaldosteronism Consultation #2: Referral / Consult Name: Emma Christian MD Consulted With: Hospitalist Call Returned at: 17:53 Core Drill Operator Helper: Will see patient, Agrees with eval, Agrees with plan, Accepts admit Note: Case discussed. Counseled Regarding: Diagnosis, Lab results, Need for admission Discharge & Departure Primary Impression: Primary hyperaldosteronism Additional Impression: Acute on chronic renal insufficiency Disposition: ADMITTED TO HOSPITAL Discharge Condition All VS Reviewed: Yes Condition: Stable Referrals: Bennie Vargas Attestation Portions of this note were transcribed by Lawrence Robledo. I, Dr. Fung personally performed the history, physical exam and medical decision-making; I reviewed and confirmed the accuracy of the information in the transcribed note. Signed by Tiago Casillas, 1/18/73 - [id number] copies to: Bennie Vargas Matthew F MD Aug 04, 2016 16:07 LAWRENCE ROBLEDO Aug 04, 2016 16:34
[2016-08-04 16:11] LABS: BASOPHILS % (AUTO) 0.8 % (0-3); EOSINOPHILS % (AUTO) 6.6 % (0-5); MONOCYTES % (AUTO) 6.6 % (4-12); Mean Corpuscular Hemoglobin 28.8 pg (27.0-35.0); Mean Corpuscular Volume 83.4 fL (81-100); NEUTROPHILS % (AUTO) 59.3 % (40-74); Platelet Count 187 bil/L (150-400)
[2016-08-04 16:28] VITALS: BP 109/57; PULSE 75; RESP 17; O2SAT 96
[2016-08-04 16:32] LABS: TROPONIN T < 0.010 ug/L (0.0-0.011)
[2016-08-04 16:42] LABS: Magnesium 2.3 mg/dL (1.6-2.6)
[2016-08-04 17:12] VITALS: BP 122/74; PULSE 72; RESP 17; O2SAT 96
[2016-08-04] MEDS ORDERED: 0.9% Sodium Chloride 1,000 ML IV SCH (17:55)
[2016-08-04 18:14] LABS: APPEARANCE,URINE CLEAR (CLEAR,HAZY); COLOR,URINE STRAW (YELLOW); PH,URINE 5.5 (5.0-8.0)
[2016-08-04 18:15] LABS: OCCULT BLOOD,URINE NEGATIVE (NEGATIVE); UROBILINOGEN,URINE NORMAL (NORMAL)
[2016-08-04] MEDS ORDERED: Ondansetron 2 mg/mL 2 mL Inj IVPUSH PRN (18:15)
[2016-08-04] MEDS ORDERED: Alum-Mag Hydrox-Simeth 30 mL Suspension PO PRN (18:15)
[2016-08-04] MEDS: 0.9% Sodium Chloride 1,000 ML IV SCH (19:24)
[2016-08-04 19:32] VITALS: BP 138/67; PULSE 67; RESP 18; O2SAT 96
[2016-08-04] MEDS ORDERED: Albuterol 2.5 mg/3 mL Inhalation Solution NEB PRN (20:00)
--- NOTE | 2016-08-04 20:32 | NUR ---
Admit Pt arrived to room 240-1 via andrew at 1920, report received by day shift RN initially then transferred to this RN. A&Ox3, on RA, VSS, admit and med rec done per admit RN. Pt has no pain at this time. Continuing care. Addendum: 08/05/16 at 0608 by EVA HO RN pt has been resting most of the shift. Denies pain/nausea. NS running at 100 ml/hr. BG at HS was 245. administered insulin per sliding scale. AT 0330 BG was 277. Voiding adequate amount of urine per urinal. Bed is locked and in low position. call light within reach. will continue to monitor.
--- NOTE | 2016-08-04 20:43 | PCM.HPMED ---
Subjective Date of Service Aug 04, 2016 Primary Provider: Admitting Physician: Emma Christian MD Primary Care Physician: Other,Physician Attending Physician: Emma Christian MD Chief Complaint: Told by clinic senior net c developer to come to the emergency department department for abnormal lab results HISTORY was OBTAINED FROM PATIENT / MEDITECH NOTES History of present illness 61-year-old male, last admitted from cardiology clinic in June 2016 for MERCEDES/anasarca/MSSA stasis ulcer/hypertension and discharged after diuresis and control of blood pressure by nephrology, now presents from clinic due to recurrent elevated creatinine and B UN. Dr. Vargas requested admission for fluid resuscitation. Patient has no complaints. He indicates water weight loss of his legs since last admission. He seems to be compliant with his multiple anti-hypertensives and has been evaluated by Sam for hyper aldosteronism. 3 episodes of diarrhea yesterday Review of Systems - none of the following - F/C/sick contact / JON / lightheaded / dizziness / sob / cough / cp / acid reflux / diarrhea / bleeding/bruising / leg swelling / change in voiding / yeast infections / rash FAMILY HX no CAD SOCIAL HX never smoker, social etoh MEDICAT Scheduled Allopurinol (Allopurinol) 100 Mg Tablet 100 MG PO DAILY Aspirin Chew (Aspirin Chew) 81 Mg Chew 81 MG PO DAILY Cholecalciferol (Vitamin D3) (Vitamin D) 1,000 Unit Capsule 2,000 UNIT PO DAILY Clonidine (Clonidine) 0.3 Mg Tablet 0.3 MG PO TID Clopidogrel Bisulfate (Plavix) 75 Mg Tablet 75 MG PO DAILY Furosemide (Furosemide) 80 Mg Tab 240 MG PO DAILY Gabapentin (Gabapentin) 600 Mg Tablet 600 MG PO DAILY Gabapentin (Gabapentin) 600 Mg Tablet 600 MG PO Noon Gabapentin (Gabapentin) 600 Mg Tablet 1,200 MG PO HS Hydralazine (Hydralazine) 100 Mg Tablet 100 MG PO TID Isosorbide MN ER (Isosorbide MN ER) 60 Mg Tab.er.24h 60 MG PO DAILY Labetalol (Labetalol) 200 Mg Tablet 200 MG PO BID Losartan Potassium (Losartan Potassium) 100 Mg Tablet 100 MG PO DAILY Minoxidil (Minoxidil) 10 Mg Tablet 5 MG PO DAILY Multivitamin (Multivitamins) 1 Each Capsule 1 EACH PO DAILY [place]-3 Acid Ethyl Esters (Lovaza) 1 Gm Capsule 3 GM PO DAILY Simvastatin (Simvastatin) 10 Mg Tablet 10 MG PO HS Spironolactone (Aldactone) 25 Mg Tablet 50 MG PO BID Tamsulosin (Flomax) 0.4 Mg Capsule 0.4 MG PO DAILY Scheduled PRN Albuterol HFA (Proair HFA) 8.5 Gm Hfa.aer.ad 2 PUFFS INHALATION Q4H PRN PRN For Shortness of Breath Docusate Sodium (Colace) 100 Mg Capsule 200 MG PO BID PRN PRN For Constipation Past Medical/Surgical HX Grant Administrator: Dr. Sims in [facility] Reactive airways Stroke 2006 with residual R-sided weakness obstructive sleep apnea Gout in right foot Diastolic CHF Hypertension Asthma Diabetes - Type II Hyperlipidemia Chronic leg ulcerations follow the wound care center BPH Renal insufficiency Hyperaldosteronism (new dx 07/2016) ORIF fingers with reconstruction l Allergies Coded Allergies: No Allergy Information Available (Verified Allergy, Unknown, RENAL INSUFFICIENCY DUE TO UNKNOWN ANTIBIOTIC, 12/09/15) Uncoded Allergies: antibiotic of unknown (Allergy, Unknown, 05/10/14) PMH Social History Hx Alcohol Use: No Hx Substance Use: No Hx Tobacco Use: No Smoking Status: Never Smoker Exam Vital Signs Vital Sign - Last Date Time Temp Pulse Resp B/P Pulse Ox O2 Delivery O2 Flow Rate FiO2 08/04/16 19:32 36.9 67 18 138/67 96 Room Air Lab and Diagnostics Labs Exam on admission On room air NAD A and O x 3 mood affect WNL NC/AT no icterus no injected eyes EOMI PERRL /no pharyngeal lesions/ no oral lesions / hearing intact Supple neck CTAB equal chest rise / no accessory muscle use / speaks in full sentences / no rrw RRR S1 S2 / no mrg / 2+ radial pulses Soft nt nd + BS no hepatosplenomegaly edema bilateral calves moderate/ no cyanosis no ecchymosis of lower extremities No rash / no jaundice [place] Result Diagram: 08/04/16 1600 08/04/16 1600 Assessment & Plan Active issues and reason for admission 61-year-old man presented with MERCEDES, previously was associated with fluid overload/sCHF, currently associated with dehydration from diarrhea/diuretics, without electrolyte changes. -- 100 mL per hour normal saline, Dr. Vargas recommended gentle fluid -- Hold Lasix/spironolactone, continue all hypertensive medications Chronic issues known prior to admission, present on admission Reactive airways obstructive sleep apnea Stroke 2006 with residual R-sided weakness Diastolic CHF Hypertension Hyperaldosteronism Hyperlipidemia Diabetes - Type II BPH -- Resume home medications except for diabetes/Lasix/spironolactone -- Sliding scale insulin Diet cardiac diabetic DVT prophylaxis lovenox Code full Disposition observation Assessment and plan were discussed with patient " Emma Christian MD Aug 04, 2016 20:43 Disposition Assessment and plan were discussed with patient family. " Allergies Coded Allergies: No Allergy Information Available (Verified Allergy, Unknown, RENAL INSUFFICIENCY DUE TO UNKNOWN ANTIBIOTIC, 12/09/15) Uncoded Allergies: antibiotic of unknown (Allergy, Unknown, 05/10/14) PMH Social History Hx Alcohol Use: No Hx Substance Use: No Hx Tobacco Use: No Smoking Status: Never Smoker Exam Vital Signs Vital Sign - Last Date Time Temp Pulse Resp B/P Pulse Ox O2 Delivery O2 Flow Rate FiO2 08/04/16 19:32 36.9 67 18 138/67 96 Room Air Lab and Diagnostics Result Diagram: 08/04/16 1600 08/04/16 1600 Emma Christian MD Aug 04, 2016 20:43
[2016-08-04 22:25] VITALS: BP 124/64; PULSE 66
[2016-08-04] MEDS ORDERED: Glucose 40% Oral Gel 15 Gm Tube PO PRN (22:30)
[2016-08-04] MEDS: cloNIDine 0.1 mg Tablet PO SCH (22:31)
[2016-08-04] MEDS: Insulin LISPRO 300 Unit/3 mL Inj SUBQ SCH (23:20)
[2016-08-05] VITALS (7 sets, daily range): BP systolic 95–193; BP diastolic 54–95; PULSE 64–78; RESP 16–18; O2SAT 94–97
[2016-08-05 06:32] LABS: Mean Corpuscular Hemoglobin 28.3 pg (27.0-35.0)
[2016-08-05 06:50] LABS: Phosphorus 4.5 mg/dL (2.5-4.9)
[2016-08-05] MEDS: 0.9% Sodium Chloride 1,000 ML IV SCH ×2 (06:50→18:02)
[2016-08-05] MEDS: cloNIDine 0.1 mg Tablet PO SCH ×3 (07:59→20:30)
[2016-08-05] MEDS: Isosorbide Mononitrate 60 mg ER24 Tablet PO SCH (07:59)
[2016-08-05] MEDS: Insulin LISPRO 300 Unit/3 mL Inj SUBQ SCH ×4 (09:58→21:57)
--- NOTE | 2016-08-05 11:30 | DRSVH ---
PROCEDURE: US RENAL SONOGRAM INDICATIONS: hydronephrosis check TECHNIQUE: Real-time scanning was performed of the kidneys and bladder, with image documentation. COMPARISON: [facility], US, US RENAL, 07/17/2016, 18:40. FINDINGS: Kidneys: Kidneys are normal in size. Right kidney measures 12.0 cm long; left kidney measures 10.7 cm long. Right renal cortical thickness is 1.2 cm; left renal cortical thickness is 1.2 cm. Renal c ortical echotexture is normal. No hydronephrosis or nephrolithiasis. No suspicious solid mass lesio ns. Bladder: Pre-void bladder volume is 113 mL. Post-void residual cannot be assessed. Pre-void images demonstrate no intraluminal masses or stones. On pre-void images, bilateral ureteral jets are noted with color Doppler interrogation. (Of note, ureteral jets may not be detectable in up to 25% of luli es due to insufficient differences in specific gravity between ureteral and bladder urine). Miscellaneous: No free pelvic fluid. IMPRESSION: No hydronephrosis. Dictated by: Ti Helton RR Interpreted: Delims Valdivia MD on 08/05/2016 at 11:29 Transcribed by: PATRICIA on 08/05/2016 at 11:29 Approved by: Delmis Valdivia MD, PhD on 08/05/2016 at 16:34
--- NOTE | 2016-08-05 11:34 | PCM.PNMED ---
Subjective Date of Service Aug 05, 2016 Subjective BP meds finally available for review. Pt. is not on any of his home meds or appropriate medications. He has primary hyperaldosteronism and the spironolactone that I had ordered last admisiion is d/c'd. his renal function is sl. better. He denies any new c/o-no CP, SOB, cough, wheezing Exam Vital Signs Vital Sign - Last Date Time Temp Pulse Resp B/P Pulse Ox O2 Delivery O2 Flow Rate FiO2 08/05/16 11:03 36.7 78 18 95/54 95 Room Air Intake and Output 08/04/16 08/04/16 08/05/16 Cumulative From/Thru 15:00 23:00 07:00 08/04/16 19:46 - 08/05/16 05:45 Intake Total 920 ml 920 ml Output Total 1175 ml 1175 ml Balance -255 ml -255 ml Intake Oral 920 ml 920 ml Output Urine Total 1175 ml 1175 ml # Bowel Movements 0 0 Exam BP is quite labile Neck is supple w/o adenopathy or JVD, [place] clear, heart RR w/2/6 JASMYN +S4, abdomen soft no HSM, Extremities no clubbing or edema Lab and Diagnostics Result Diagram: 08/05/16 0604 08/05/16 0604 Assessment & Plan Impression #1. Hyperaldosteronism 2. HTN w/ HTN CV and nephrosclerosis 3. MERCEDES Rec. #1 Stop IVF, 2. stop minoxidil 3. spironolactone 25 BID, 4. secrease hydralazine5. pt. needs a CT of the adrenals w/ renal protocol (IVF 12 hours before and after.) Bennie Vargas DO Aug 05, 2016 11:34
--- NOTE | 2016-08-05 12:48 | NUR ---
low Systolic Te paged doctor r/t systolic low 95/54 at 1100 and rechecked BP 101/57 pulse 73. notified doctor for scheduled orders for hydralazine and clonidine due at 1430 and doctor states," hold Hydralazine unless blood pressure is high." will recheck blood pressure before giving scheduled medications.
--- NOTE | 2016-08-05 13:24 | NUR ---
Case Management: [facility] and Medicare Part D info given and explained to pt in room at 11:12 am. No questions at this time. SEVEN Thomas RN
--- NOTE | 2016-08-05 14:23 | NUR ---
blood pressure Held hydralazine per doctor orders due to BP 103/61 pulse 72. will continue to monitor blood pressure. patient is alert and oriented x3 and aware of low blood pressure.
--- NOTE | 2016-08-05 17:13 | NUR ---
CT Adrenal New orders for CT adrenal scan . CT called and asking r/t hydration [address] after [address] scan. notified CT normal saline start time 650AM before this shift started and states," will be here approx [address] vital signs stable after hydralazine held after lunch per orders. patient is alert and oriented X3. able to make needs known. uses CPAP at bed time. blood sugars 243, 302, 256 for this shift. notified doctor r/t blood sugars 302. uses urinal. call light with in reach for safety and verbalize the use of call light. stable mood. room air. continue to monitor for hydration, pain and safety.
--- NOTE | 2016-08-05 20:23 | NUR ---
off floor off floor to ct scan
--- NOTE | 2016-08-05 20:40 | PCM.PNMED ---
Subjective Date of Service Aug 05, 2016 Subjective Patient was seen and examined at bedside today. Patient denies any chest pain, shortness of breath, nausea, vomiting, diarrhea. Exam Vital Signs Vital Sign - Last Date Time Temp Pulse Resp B/P Pulse Ox O2 Delivery O2 Flow Rate FiO2 08/05/16 20:23 37.0 74 17 97/58 95 Room Air Intake and Output 08/04/16 08/04/16 08/05/16 Cumulative From/Thru 15:00 23:00 07:00 08/04/16 19:46 - 08/05/16 05:45 Intake Total 920 ml 920 ml Output Total 1175 ml 1175 ml Balance -255 ml -255 ml Intake Oral 920 ml 920 ml Output Urine Total 1175 ml 1175 ml # Bowel Movements 0 0 Exam Physical Exam: GEN: Patient was awake, alert, responding appropriately to questions HEENT: PERRLA, EOMI, Neck soft supple, trachea midline, nomocephalic/atraumatic CV: +S1/S2, RRR, no murmurs auscultated Respiratory: CTAB, no wheezes, rales, rhonchi GI: +bowel sounds x4, soft, compressible, non TTP EXT: no c/c/e Neuro: CN II-XII grossly intact Psych: mood and affect were appropriate IVs and Medications Medications Reviewed: Medications were reviewed in detail Medications Current Medications Sodium Chloride 1,000 ml @ 100 mls/hr Q10H IV; Start 08/04/16 at 17:55; Stop at 22:30; Status DC Albuterol 2.5 mg Q4H PRN NEB; Start 08/04/16 at 20:00 Allopurinol 100 mg DAILY PO Last administered on 08/05/16 07:57; Admin Dose 100 MG; Start 08/05/16 at 08:30 Aspirin 81 mg DAILY PO Last administered on 08/05/16 07:59; Admin Dose 81 MG; Start 08/05/16 at 08:30 Clopidogrel Bisulfate 75 mg DAILY PO Last administered on 08/05/16 07:59; Admin Dose 75 MG; Start 08/05/16 at 08:30 Docusate Sodium 200 mg BID PRN PO; Start 08/04/16 at 18:05 Isosorbide Mononitrate 60 mg 0730 PO Last administered on 08/05/16 07:59; Admin Dose 60 MG; Start 08/05/16 at 07:30 Labetalol HCl 200 mg BID PO Last administered on 08/05/16 07:59; Admin Dose 200 MG; Start 08/04/16 at 20:30 Losartan Potassium 100 mg DAILY PO Last administered on 08/05/16 07:57; Admin Dose 100 MG; Start 08/05/16 at 08:30 Tamsulosin HCl 0.4 mg DAILY PO Last administered on 08/05/16 07:59; Admin Dose 0.4 MG; Start 08/05/16 at 08:30 Clonidine 0.3 mg TID PO Last administered on 08/05/16 07:59; Admin Dose 0.3 MG ; Start 08/04/16 at 20:30; Stop 08/05/16 at 11:34; Status DC Gabapentin 1,200 mg HS PO Last administered on 08/04/16 22:31; Admin Dose 1, 200 MG; Start 08/04/16 at 21:00 Gabapentin 600 mg DAILY PO Last administered on 08/05/16 07:58; Admin Dose 600 MG; Start 08/05/16 at 08:30 Gabapentin 600 mg NOON PO Last administered on 08/05/16 12:10; Admin Dose 600 MG; Start 08/05/16 at 12:00 Hydralazine HCl 100 mg TID PO Last administered on 08/05/16 07:59; Admin Dose 100 MG; Start 08/04/16 at 20:30; Stop 08/05/16 at 11:34; Status DC Minoxidil 5 mg DAILY PO Last administered on 08/05/16 07:58; Admin Dose 5 MG; Start 08/05/16 at 08:30; Stop 08/05/16 at 11:34; Status DC Atorvastatin Calcium 10 mg 10 mg HS PO Last administered on 08/04/16 22:35; Admin Dose 10 MG; Start 08/04/16 at 21:00 Sodium Chloride 1,000 ml @ 80 mls/hr [id number] IV Last administered on 08/05/16 06:50; Admin Dose 100 MLS/HR; Start 08/04/16 at 18:14; Stop 08/05/16 at 16:07; Status DC Al Hydrox/Mg Hydrox/Simethicone 30 ml Q6 PRN PO; Start 08/04/16 at 18:15 Ondansetron HCl Dose range: 4 mg to 8 mg Q4H PRN IVPUSH; Start 08/04/16 at 18: 15 Acetaminophen 975 mg Q6H PRN PO; Start 08/04/16 at 18:15 Insulin Human Lispro [facility] SUBQ Last administered on 08/05/16 18:05; Admin Dose 3 UNIT; Start 08/04/16 at 22:54 Clonidine 0.2 mg TID PO Last administered on 08/05/16 14:22; Admin Dose 0.2 MG ; Start 08/05/16 at 14:30 Hydralazine HCl 50 mg TID PO; Start 08/05/16 at 14:30 Spironolactone 50 mg 50 mg BID PO; Start 08/05/16 at 20:30 Sodium Chloride 1,000 ml @ 60 mls/hr [id number] IV Last administered on 08/05/16 18:02; Admin Dose 60 MLS/HR; Start 08/05/16 at 15:15 Lab and Diagnostics Result Diagram: 08/05/16 0604 08/05/16 0604 Assessment & Plan Active issues and reason for admission 61-year-old man presented with MERCEDES, previously was associated with fluid overload/sCHF, currently associated with dehydration from diarrhea/diuretics, without electrolyte changes. Primary hyperaldosteronism -- Continue current recommendations by Dr. Vargas (nephrology) -- Spironolactone 50 twice a day -- IV hydration prior to CT scan of the adrenals in the morning MERCEDES -- 100 mL per hour normal saline hydration gentle fluid -- Hold Lasix/spironolactone, continue all hypertensive medications Hypertension -- Currently controlled -- Continue clonidine 0.2 mg 3 times a day -- Continue hydralazine 50 mg 3 times a day -- Losartan 100 mg daily Type II diabetes -- Continue Sliding scale -- Accu-Cheks before meals at bedtime Hyperlipidemia -- Continue atorvastatin 10 mg daily at bedtime BPH -- Currently stable -- Continue tamsulosin 0.4 mg daily Diet cardiac diabetic DVT prophylaxis lovenox Code full Resuscitation Status: CPR: Attempt Resuscitation Harleen Mckeon DO Aug 05, 2016 20:40
--- NOTE | 2016-08-05 21:15 | NUR ---
blood pressure medications bp 97/58. notified dr newton. gave orders to hold bp medications tonight. iv fluids running. explained to patient. will monitor.
[2016-08-06 05:43] VITALS: BP 160/81; PULSE 60; RESP 18; O2SAT 95
[2016-08-06 08:07] VITALS: BP 196/98; PULSE 64; RESP 14; O2SAT 95
[2016-08-06] MEDS: Insulin LISPRO 300 Unit/3 mL Inj SUBQ SCH ×4 (08:45→22:50)
[2016-08-06] MEDS: Isosorbide Mononitrate 60 mg ER24 Tablet PO SCH (08:46)
[2016-08-06] MEDS: cloNIDine 0.1 mg Tablet PO SCH ×3 (08:46→20:22)
--- NOTE | 2016-08-06 09:32 | DRSVH ---
PROCEDURE: CT ABDOMEN ADRENAL PROTOCOL INDICATIONS: Hyperaldosteronism Prakash/PRA=40 TECHNIQUE: Noncontrast 3 mm thick sections acquired from the diaphragms to the iliac crests. After the administ ration of intravenous contrast, 3 mm thick venous-phase and 10-minute delayed images acquired from th e diaphragms to the iliac crests. For radiation dose reduction, the following was used: automated e xposure control, adjustment of mA and/or kV according to patient size. COMPARISON: [facility], CT, ABDOMEN W&W/O CONTRAST, 10/11/2005, 7:45. [facility], CT, CT PELVIS WO CON, 12/09/2015, 0:12. FINDINGS: Image quality: Excellent. Lung bases: Lung bases are clear. Heart size is normal. Trace effusion. Adrenal glands: Mild appearance of thickening in the left adrenal gland, measuring 13 mm. It is onl y slightly more prominent compared to 10/11/05. Noncontrast Hounsfield units measure 33, venous phase 75 and delayed 36. Washout percentage calculates to be approximately 93%. Solid organs: Liver is mildly enlarged with steatosis. The spleen is enlarged. Gallbladder is unre markable. Biliary system is non dilated. Pancreas enhances normally. Kidneys are normal in size an d enhancement. No hydronephrosis. 7 mm nonenhancing focus of hyperdensity in the right kidney. Peritoneum and bowel: Unenhanced bowel loops are normal in caliber and wall thickness. No free flui d or air. Nodes and vessels: No retroperitoneal or mesenteric adenopathy by size criteria. Aorta and inferior vena cava are normal in size. Miscellaneous: No ventral hernias. Bones: No suspicious bony lesions. No vertebral body compression fractures. IMPRESSION: 1. 13 mm thickening of the left adrenal gland, minimally increased compared to 2005. Washout percent age calculation is most suggestive of adenoma. Dictated by: Catalina Mazariegos M.D. on 08/06/2016 at 9:31 Approved by: Catalina Mazariegos M.D. on 08/06/2016 at 9:31
--- NOTE | 2016-08-06 10:30 | NUR ---
Morning Rounds Staffed patient's case with Dr. Mckeon, social work and case management. Dr. Mckeon stated she would be reviewing CT and depending on CT, renal team may need to change treatment course. Dr. Mckeon stated she would like to change status to inpatient. I asked for PT eval, Dr. Mckeon stated she would put in the order for PT eval.
--- NOTE | 2016-08-06 11:55 | NUR ---
IV Fluids Dr. Vargas at bedside with patient, stated IV fluids can be stopped at 1900 today.
[2016-08-06 13:25] VITALS: BP 127/79; PULSE 61; RESP 15; O2SAT 97
[2016-08-06] MEDS: 0.9% Sodium Chloride 1,000 ML IV SCH (13:51)
--- NOTE | 2016-08-06 14:07 | PCM.PNMED ---
Subjective Date of Service Aug 06, 2016 Subjective Nephrology Progress Note: Attending Dr. Sam Virk Andrew is a 61-year-old male with a past medical history significant for uncontrolled hypertension secondary to hyperaldosteronism and recently associated MERCEDES and fluid overload who was a direct admission for worsening MERCEDES. Hospital day #2. Overnight: There were no acute events. The patient's blood pressure medication was held. The patient is resting in bed comfortably and in no acute distress. The patient reports that he feels well and has no complaints. He denies headache, chest pain, palpitations, shortness of breath, abdominal pain, nausea, vomiting , fever, chills, dysuria, diarrhea or constipation. The patient is voiding and eliminating without difficulty. . Exam Vital Signs Vital Sign - Last Date Time Temp Pulse Resp B/P Pulse Ox O2 Delivery O2 Flow Rate FiO2 08/06/16 13:25 36.3 61 15 127/79 97 Room Air Intake and Output 08/05/16 08/05/16 08/06/16 Cumulative From/Thru 15:00 23:00 07:00 08/04/16 19:46 - 08/06/16 05:43 Intake Total 950 ml 1357 ml 3227 ml Output Total 1600 ml 2775 ml Balance 950 ml -243 ml 452 ml Intake Oral 637 ml 1557 ml IV Total 950 ml 720 ml 1670 ml Output Urine Total 1600 ml 2775 ml # Bowel Movements 0 Exam General: Older gentleman lying in bed and in no acute distress, poor hygiene, well-developed, well-nourished, appropriately interactive. HEENT: Normocephalic, atraumatic. External ears without defect. Pupils equal, round, and reactive to light. Anicteric sclerae, moist conjunctivae, and no lid lag. Oropharynx free of erythema and cobble stoning with moist mucosa. Neck: Supple with full range of motion. No jugular venous distension. No bruits. No lymphadenopathy or thyromegaly. Cardiovascular: Regular rate and rhythm with no murmurs, rubs, or gallops appreciated Pulmonary: Clear to auscultation bilaterally with no crackles, wheezes, or rhonchi. Normal respiratory effort with no use of accessory muscles. Abdomen: Soft, obese, nontender, nondistended. No hepatosplenomegaly or masses appreciated. Extremities: No clubbing or cyanosis. Mild pitting edema isolated to distal extremities only. Skin: Normal temperature, turgor, and texture; no rash, ulcers, or subcutaneous nodules appreciated. Neurological: Cranial nerves grossly intact. Normal muscle strength, tone, and bulk. Reflexes, coordination, and sensory function within normal limits. No known gait impairment. Psychiatric: Normal mood and affect. Alert and oriented to person, place, and time. IVs and Medications Medications Reviewed: Medications were reviewed in detail Lab and Diagnostics Result Diagram: 08/05/16 0604 08/06/16 0615 X-Rays, CTs and MRIs CT ABDOMEN ADRENAL PROTOCOL IMPRESSION: 1. 13 mm thickening of the left adrenal gland, minimally increased compared to 2006. Washout percentage calculation is most suggestive of adenoma. Dictated by: Catalina Mazariegos M.D. on 08/06/2016 at 9:31 Approved by: Catalina Mazariegos M.D. on 08/06/2016 at 9:31 US RENAL SONOGRAM IMPRESSION: No hydronephrosis. Dictated by: Ti Helton A Interpreted: Delmis Valdivia MD on 08/05/2016 at 11:29 Transcribed by: PATRICIA on 08/05/2016 at 11:29 Approved by: Delmis Valdivia MD, PhD on 08/05/2016 at 16:34 . Assessment & Plan Moose Morales is a 61-year-old male with a past medical history significant for uncontrolled hypertension secondary to hyperaldosteronism and recently associated MERCEDES and fluid overload who was a direct admission for worsening MERCEDES. Hospital day #2. Assessment: 1. Hyperaldosteronism 2. Hypertension with hypertension cardiovascular disease and nephrosclerosis 3. Acute kidney injury Recommendations: 1. Increased spironolactone from 25 mg twice a day to 50 mg twice a day. 2. Continue clonidine 0.2 mg 3 times a day, hydralazine 50 mg 3 times a day, isosorbide mononitrate 60 mg daily, labetalol 200 mg twice a day, and losartan [address] abdomen adrenal protocol revealed left adrenal adenoma. Continue renal protocol with IV fluids for prophylaxis against contrast-induced nephropathy until 1900 tonight. We will need a surgical evaluation in the future as an outpatient. . Resuscitation Status: CPR: Attempt Resuscitation Zelda Chung DO Aug 06, 2016 13:49
[2016-08-06] MEDS ORDERED: 0.9% Sodium Chloride 1,000 ML IV SCH (14:09)
[2016-08-06 18:23] VITALS: BP 184/89; PULSE 70; RESP 16; O2SAT 96
--- NOTE | 2016-08-06 19:04 | PCM.PNMED ---
Subjective Date of Service Aug 06, 2016 Subjective Patient was examined at bedside today. Patient denies any chest pain, shortness of breath, nausea, vomiting, diarrhea. Exam Vital Signs Vital Sign - Last Date Time Temp Pulse Resp B/P Pulse Ox O2 Delivery O2 Flow Rate FiO2 08/06/16 18:23 37.0 70 16 184/89 96 Room Air Intake and Output 08/05/16 08/05/16 08/06/16 Cumulative From/Thru 15:00 23:00 07:00 08/04/16 19:46 - 08/06/16 05:43 Intake Total 950 ml 1357 ml 3227 ml Output Total 1600 ml 2775 ml Balance 950 ml -243 ml 452 ml Intake Oral 637 ml 1557 ml IV Total 950 ml 720 ml 1670 ml Output Urine Total 1600 ml 2775 ml # Bowel Movements 0 Exam Physical Exam: GEN: Patient was awake, alert, responding appropriately to questions HEENT: PERRLA, EOMI, Neck soft supple, trachea midline, nomocephalic/atraumatic CV: +S1/S2, RRR, no murmurs auscultated Respiratory: CTAB, no wheezes, rales, rhonchi GI: +bowel sounds x4, soft, compressible, non TTP EXT: no c/c/e Neuro: CN II-XII grossly intact Psych: mood and affect were appropriate IVs and Medications Medications Reviewed: Medications were reviewed in detail Medications Current Medications Albuterol 2.5 mg Q4H PRN NEB; Start 08/04/16 at 20:00 Allopurinol 100 mg DAILY PO Last administered on 08/06/16 08:46; Admin Dose 100 MG; Start 08/05/16 at 08:30 Aspirin 81 mg DAILY PO Last administered on 08/06/16 08:46; Admin Dose 81 MG; Start 08/05/16 at 08:30 Clopidogrel Bisulfate 75 mg DAILY PO Last administered on 08/06/16 08:45; Admin Dose 75 MG; Start 08/05/16 at 08:30 Isosorbide Mononitrate 60 mg 0730 PO Last administered on 08/06/16 08:46; Admin Dose 60 MG; Start 08/05/16 at 07:30 Labetalol HCl 200 mg BID PO Last administered on 08/06/16 08:45; Admin Dose 200 MG; Start 08/04/16 at 20:30 Losartan Potassium 100 mg DAILY PO Last administered on 08/06/16 08:45; Admin Dose 100 MG; Start 08/05/16 at 08:30 Tamsulosin HCl 0.4 mg DAILY PO Last administered on 08/06/16 08:46; Admin Dose 0.4 MG; Start 08/05/16 at 08:30 Clonidine 0.3 mg TID PO Last administered on 08/05/16 07:59; Admin Dose 0.3 MG ; Start 08/04/16 at 20:30; Stop 08/05/16 at 11:34; Status DC Gabapentin 1,200 mg HS PO Last administered on 08/05/16 21:20; Admin Dose 1, 200 MG; Start 08/04/16 at 21:00 Gabapentin 600 mg DAILY PO Last administered on 08/06/16 08:46; Admin Dose 600 MG; Start 08/05/16 at 08:30 Gabapentin 600 mg NOON PO Last administered on 08/06/16 11:57; Admin Dose 600 MG; Start 08/05/16 at 12:00 Hydralazine HCl 100 mg TID PO Last administered on 08/05/16 07:59; Admin Dose 100 MG; Start 08/04/16 at 20:30; Stop 08/05/16 at 11:34; Status DC Minoxidil 5 mg DAILY PO Last administered on 08/05/16 07:58; Admin Dose 5 MG; Start 08/05/16 at 08:30; Stop 08/05/16 at 11:34; Status DC Atorvastatin Calcium 10 mg HS PO Last administered on 08/05/16 21:20; Admin Dose 10 MG; Start 08/04/16 at 21:00 Insulin Human Lispro [facility] SUBQ Last administered on 08/06/16 17:10; Admin Dose 3 UNIT; Start 08/04/16 at 22:54 Clonidine 0.2 mg TID PO Last administered on 08/06/16 14:40; Admin Dose 0.2 MG ; Start 08/05/16 at 14:30 Hydralazine HCl 50 mg TID PO Last administered on 08/06/16 14:40; Admin Dose 50 MG; Start 08/05/16 at 14:30 Spironolactone 50 mg 50 mg BID PO; Start 08/05/16 at 20:30; Stop 08/06/16 at 07: 51; Status DC Sodium Chloride 1,000 ml @ 60 mls/hr [id number] IV Last administered on 08/06/16t 13:51; Admin Dose 60 MLS/HR; Start 08/05/16 at 15:15; Stop 08/06/16 at 14:10; Status DC Spironolactone 25 mg 25 mg BID PO Last administered on 08/06/16t 08:47; Admin Dose 25 MG; Start 08/06/16 at 08:30; Stop 08/06/16 at 14:10; Status DC Sodium Chloride 1,000 ml @ 60 mls/hr [id number] IV; Start 08/06/16 at 14:09; Stop 08/06/16 at 19:00; Status DC Spironolactone 50 mg BID PO; Start 08/06/16 at 20:30 Lab and Diagnostics Result Diagram: 08/05/16 0604 08/06/16 0615 X-Rays, CTs and MRIs CT ABDOMEN ADRENAL PROTOCOL IMPRESSION: 1. 13 mm thickening of the left adrenal gland, minimally increased compared to 2005. Washout percentage calculation is most suggestive of adenoma. Dictated by: Catalina Mazariegos M.D. on 08/06/2016 at 9:31 Approved by: Catalina Mazariegos M.D. on 08/06/2016 at 9:31 US RENAL SONOGRAM IMPRESSION: No hydronephrosis. Dictated by: Ti Helton RRA Interpreted: Delmis Valdivia MD on 08/05/2016 at 11:29 Transcribed by: PATRICIA on 08/05/2016 at 11:29 Approved by: Delmis Valdivia MD, PhD on 08/05/2016 at 16:34 . PROCEDURE: CT ABDOMEN ADRENAL PROTOCOL INDICATIONS: Hyperaldosteronism Prakash/PRA=40 TECHNIQUE: Noncontrast 3 mm thick sections acquired from the diaphragms to the iliac crests. After the administration of intravenous contrast, 3 mm thick venous- phase and 10-minute delayed images acquired from the diaphragms to the iliac crests. For radiation dose reduction, the following was used: automated exposure control, adjustment of mA and/or kV according to patient size. COMPARISON: [facility], CT, ABDOMEN W&W/O CONTRAST, 10/11/2005, 7: 45. [facility], CT, CT PELVIS WO CON, 12/09/2015, 0:12. FINDINGS: Image quality: Excellent. Lung bases: Lung bases are clear. Heart size is normal. Trace effusion. Adrenal glands: Mild appearance of thickening in the left adrenal gland, measuring 13 mm. It is only slightly more prominent compared to 10/11/05. Noncontrast Hounsfield units measure 33, venous phase 75 and delayed 36. Washout percentage calculates to be approximately 93%. Solid organs: Liver is mildly enlarged with steatosis. The spleen is enlarged. Gallbladder is unremarkable. Biliary system is non dilated. Pancreas enhances normally. Kidneys are normal in size and enhancement. No hydronephrosis. 7 mm nonenhancing focus of hyperdensity in the right kidney. Peritoneum and bowel: Unenhanced bowel loops are normal in caliber and wall thickness. No free fluid or air. Nodes and vessels: No retroperitoneal or mesenteric adenopathy by size criteria. Aorta and inferior vena cava are normal in size. Miscellaneous: No ventral hernias. Bones: No suspicious bony lesions. No vertebral body compression fractures. IMPRESSION: 1. 13 mm thickening of the left adrenal gland, minimally increased compared to 2005. Washout percentage calculation is most suggestive of adenoma. Dictated by: Catalina Mazariegos M.D. on 08/06/2016 at 9:31 Approved by: Catalina Mazariegos M.D. on 08/06/2016 at 9:31 Assessment & Plan Active issues and reason for admission 61-year-old man presented with MERCEDES, previously was associated with fluid overload/sCHF, currently associated with dehydration from diarrhea/diuretics, without electrolyte changes. Primary hyperaldosteronism -- Continue current recommendations by Dr. Vargas (nephrology) -- Spironolactone 50 twice a day -- CT scan revealed an adrenal adenoma patient will need to be followed up by surgery most likely as an outpatient for further workup. MERCEDES -- Continue gentle hydration status post CT scan Hypertension -- Currently controlled -- Continue clonidine 0.2 mg 3 times a day -- Continue hydralazine 50 mg 3 times a day -- Losartan 100 mg daily Type II diabetes -- Continue Sliding scale -- Accu-Cheks before meals at bedtime Hyperlipidemia -- Continue atorvastatin 10 mg daily at bedtime BPH -- Currently stable -- Continue tamsulosin 0.4 mg daily Diet cardiac diabetic DVT prophylaxis lovenox Code full Resuscitation Status: CPR: Attempt Resuscitation Harleen Mckeon DO Aug 06, 2016 19:04
[2016-08-06 20:11] VITALS: BP 193/92; PULSE 69; RESP 16; O2SAT 95
[2016-08-07 04:35] VITALS: BP 186/93; PULSE 54; RESP 16; O2SAT 95
--- NOTE | 2016-08-07 05:15 | NUR ---
Rest/BP Patient resting quietly for majority of the night. Denies pain. Wearing home CPAP. BP elevated in 190s systolic at first check later in 180s systolic after all bP meds given. Patient denies chest pain, shortness of breath, headache; continue to monitor.
[2016-08-07] MEDS: Insulin LISPRO 300 Unit/3 mL Inj SUBQ SCH ×2 (08:31→12:14)
[2016-08-07] MEDS: Isosorbide Mononitrate 60 mg ER24 Tablet PO SCH (08:32)
[2016-08-07] MEDS: cloNIDine 0.1 mg Tablet PO SCH ×2 (08:33→14:37)
--- NOTE | 2016-08-07 09:28 | PCM.PNMED ---
Subjective Date of Service Aug 07, 2016 Subjective His renal function is much better as is his BP. He denies any CP, SOB, N, V Exam Vital Signs Vital Sign - Last Date Time Temp Pulse Resp B/P Pulse Ox O2 Delivery O2 Flow Rate FiO2 08/07/16 04:35 36.5 54 16 186/93 95 CPAP Intake and Output 08/06/16 08/06/16 08/07/16 Cumulative From/Thru 15:00 23:00 07:00 08/04/16 19:46 - 08/07/16 05:15 Intake Total 939 ml 1301 ml 5467 ml Output Total 450 ml 1500 ml 4725 ml Balance 489 ml -199 ml 742 ml Intake Oral 400 ml 1301 ml 3258 ml IV Total 539 ml 2209 ml Output Urine Total 450 ml 1500 ml 4725 ml # Bowel Movements 1 1 Exam Neck-no JVD, Lungs Clear, Heart RR w/ 2/6 [id number] no edema Lab and Diagnostics Result Diagram: 08/05/16 0604 08/07/16 0625 X-Rays, CTs and MRIs CT ABDOMEN ADRENAL PROTOCOL IMPRESSION: 1. 13 mm thickening of the left adrenal gland, minimally increased compared to 2005. Washout percentage calculation is most suggestive of adenoma. Dictated by: Catalina Mazariegos M.D. on 08/06/2016 at 9:31 Approved by: Catalina Mazariegos M.D. on 08/06/2016 at 9:31 US RENAL SONOGRAM IMPRESSION: No hydronephrosis. Dictated by: Ti Helton RRA Interpreted: Delmis Valdivia MD on 08/05/2016 at 11:29 Transcribed by: PATRICIA on 08/05/2016 at 11:29 Approved by: Delmis Valdivia MD, PhD on 08/05/2016 at 16:34 . PROCEDURE: CT ABDOMEN ADRENAL PROTOCOL INDICATIONS: Hyperaldosteronism Prakash/PRA=40 TECHNIQUE: Noncontrast 3 mm thick sections acquired from the diaphragms to the iliac crests. After the administration of intravenous contrast, 3 mm thick venous- phase and 10-minute delayed images acquired from the diaphragms to the iliac crests. For radiation dose reduction, the following was used: automated exposure control, adjustment of mA and/or kV according to patient size. COMPARISON: [facility], CT, ABDOMEN W&W/O CONTRAST, 10/11/2005, 7: 45. [facility], CT, CT PELVIS WO CON, 12/09/2015, 0:12. FINDINGS: Image quality: Excellent. Lung bases: Lung bases are clear. Heart size is normal. Trace effusion. Adrenal glands: Mild appearance of thickening in the left adrenal gland, measuring 13 mm. It is only slightly more prominent compared to 10/11/05. Noncontrast Hounsfield units measure 33, venous phase 75 and delayed 36. Washout percentage calculates to be approximately 93%. Solid organs: Liver is mildly enlarged with steatosis. The spleen is enlarged. Gallbladder is unremarkable. Biliary system is non dilated. Pancreas enhances normally. Kidneys are normal in size and enhancement. No hydronephrosis. 7 mm nonenhancing focus of hyperdensity in the right kidney. Peritoneum and bowel: Unenhanced bowel loops are normal in caliber and wall thickness. No free fluid or air. Nodes and vessels: No retroperitoneal or mesenteric adenopathy by size criteria. Aorta and inferior vena cava are normal in size. Miscellaneous: No ventral hernias. Bones: No suspicious bony lesions. No vertebral body compression fractures. IMPRESSION: 1. 13 mm thickening of the left adrenal gland, minimally increased compared to 2005. Washout percentage calculation is most suggestive of adenoma. Dictated by: Catalina Mazariegos M.D. on 08/06/2016 at 9:31 Approved by: Catalina Mazariegos M.D. on 08/06/2016 at 9:31 Assessment & Plan Impression 1. Primary Hyperaldosteronism 2. 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 Increase spironolactone to 75 mg BID, 2. OK to d/c today-he has an appt. w/ me on Tuesday Resuscitation Status: CPR: Attempt Resuscitation Bennie Vargas DO Aug 07, 2016 09:28
--- NOTE | 2016-08-07 10:45 | NUR ---
Morning Rounds Staffed patient's case with Dr. Mckeno and social work. Dr. Mckeon stated patient can be discharged today pending PT eval, asked for RN to contact her once PT has seen patient so she can finalize discharge orders.
--- NOTE | 2016-08-07 12:11 | NUR ---
Evaluation completed. Please go to "Notes" then click on "Assessments and Notes" (bottom left corner of screen). Then select appropriate discipline tab on top of screen.
--- NOTE | 2016-08-07 12:12 | PCM.DIMED ---
Discharge Instructions Date of Service Aug 07, 2016 Dates of Hospitalization Aug 04, 2016 at 18:01 Discharge Diagnosis Discharge Diagnosis Adrenal mass Primary hyperaldosteronism Acute on chronic kidney injury Hypertension Type II diabetes Hyperlipidemia Medication Instructions His prolactin will be increased to 75 mg twice a day as recommended by Dr. Vargas. Diet Renal Diet Activity Outpatient Physical Therapy, Other (gradually return to activity as tolerated) Call your provider Fever or Chills, Shortness of breath, Chest pain, Excessive diarrhea, Weakness ( unilateral) Patient Instructions Please follow-up with your primary care physician within one week. If an appointment has not already been made and please call to schedule an appointment. Please follow-up with Dr. Vargas on 08/09/2016 at your regularly scheduled appointment. Follow-up with PCP in: 1 week Provider: Bennie Vargas DO Follow-up in: 1 week Harleen Mckeon DO Aug 07, 2016 12:12
[2016-08-07] MEDS ORDERED: HYDR-3940 PO (12:21)
[2016-08-07] MEDS ORDERED: SPIR25TA PO (12:21)
[2016-08-07] MEDS ORDERED: CLON0.1T14 PO (12:21)
--- NOTE | 2016-08-07 12:28 | PCM.DC.MED ---
Discharge Summary Date of Service Aug 07, 2016 Dates of Hospitalization Date of Hospital Admission Aug 04, 2016 at 18:01 Date of Discharge: Aug 07, 2016 Providers: Admitting Physician: Emma Christian MD Primary Care Physician: Other,Physician Attending Physician: Emma Christian MD Diagnosis at Time of Discharge Diagnosis at Time of Discharge Adrenal mass Primary hyperaldosteronism Acute on chronic kidney injury Hypertension Type II diabetes Hyperlipidemia Consultations Nephrology Dr. Vargas Procedures XRay, CTs & MRIs CT ABDOMEN ADRENAL PROTOCOL IMPRESSION: 1. 13 mm thickening of the left adrenal gland, minimally increased compared to 2005. Washout percentage calculation is most suggestive of adenoma. Dictated by: Catalina Mazariegos M.D. on 08/06/2016 at 9:31 Approved by: Catalina Mazariegos M.D. on 08/06/2016 at 9:31 US RENAL SONOGRAM IMPRESSION: No hydronephrosis. Dictated by: Ti Helton RRA Interpreted: Delmis Valdivia MD on 08/05/2016 at 11:29 Transcribed by: PATRICIA on 08/05/2016 at 11:29 Approved by: Delmis Valdivia MD, PhD on 08/05/2016 at 16:34 . PROCEDURE: CT ABDOMEN ADRENAL PROTOCOL INDICATIONS: Hyperaldosteronism Prakash/PRA=40 TECHNIQUE: Noncontrast 3 mm thick sections acquired from the diaphragms to the iliac crests. After the administration of intravenous contrast, 3 mm thick venous- phase and 10-minute delayed images acquired from the diaphragms to the iliac crests. For radiation dose reduction, the following was used: automated exposure control, adjustment of mA and/or kV according to patient size. COMPARISON: [facility], CT, ABDOMEN W&W/O CONTRAST, 10/11/2005, 7: 45. [facility], CT, CT PELVIS WO CON, 12/09/2015, 0:12. FINDINGS: Image quality: Excellent. Lung bases: Lung bases are clear. Heart size is normal. Trace effusion. Adrenal glands: Mild appearance of thickening in the left adrenal gland, measuring 13 mm. It is only slightly more prominent compared to 10/11/05. Noncontrast Hounsfield units measure 33, venous phase 75 and delayed 36. Washout percentage calculates to be approximately 93%. Solid organs: Liver is mildly enlarged with steatosis. The spleen is enlarged. Gallbladder is unremarkable. Biliary system is non dilated. Pancreas enhances normally. Kidneys are normal in size and enhancement. No hydronephrosis. 7 mm nonenhancing focus of hyperdensity in the right kidney. Peritoneum and bowel: Unenhanced bowel loops are normal in caliber and wall thickness. No free fluid or air. Nodes and vessels: No retroperitoneal or mesenteric adenopathy by size criteria. Aorta and inferior vena cava are normal in size. Miscellaneous: No ventral hernias. Bones: No suspicious bony lesions. No vertebral body compression fractures. IMPRESSION: 1. 13 mm thickening of the left adrenal gland, minimally increased compared to 2006. Washout percentage calculation is most suggestive of adenoma. Dictated by: Catalina Mazariegos M.D. on 08/06/2016 at 9:31 Approved by: Catalina Mazariegos M.D. on 08/06/2016 at 9:31 Brief History 61-year-old man presented with MERCEDES, previously was associated with fluid overload/sCHF, currently associated with dehydration from diarrhea/diuretics, without electrolyte changes. Hospital Course 61-year-old man presented with MERCEDES, previously was associated with fluid overload/sCHF, currently associated with dehydration from diarrhea/diuretics, without electrolyte changes. Patient was treated for AK with gentle hydration. It was felt by nephrology that the patient should have in adrenal CT scan as the patient does have primary hyperaldosteronism. A mass was found in the adrenal glands and nephrology has suggested that the patient have further workup as an outpatient. While in the hospital the patient needed further management of blood pressure medications and blood pressure control and recommendations were made by nephrology. Patient will go home with spironolactone 75 mg twice a day which is a change to his normal regiment. Patient will be discharged home in stable condition with home health and home. Patient will follow-up with Dr. Vargas on 08/09/2016 and the patient has been instructed to contact his primary care physician for follow-up and diabetes management. Exam Vital Signs (Last) Date Time Temp Pulse Resp B/P Pulse Ox O2 Delivery O2 Flow Rate FiO2 08/07/16 08:30 CPAP/BIPAP 08/07/16 04:35 36.5 54 16 186/93 95 Test 08/04/16 16:00 08/04/16 17:57 08/05/16 06:04 08/07/16 06:25 Neutrophils (%) (Auto) 59.3% (40-74) Lymphocytes (%) (Auto) 26.5% (14-46) Monocytes (%) (Auto) 6.6% (4-12) Eosinophils (%) (Auto) 6.6% (0-5) Basophils (%) (Auto) 0.8% (0-3) Magnesium Level 2.3mg/dL (1.6-2.6) Troponin T < 0.010ug/L (0.0-0.011) Hold Agarwal Top Tube Received (Received) Urine Color Straw (YELLOW) Urine Appearance Clear (CLEAR,HAZY) Urine pH 5.5 (5.0-8.0) Urine Specific [place] 1.015 (1.003-1.035) Urine Protein Negativemg/dL (NEG,TRACE) Urine Glucose (UA) Negativemg/dL (NEGATIVE) Urine Ketones Negativemg/dL (NEGATIVE) Urine Occult Blood Negative (NEGATIVE) Urine Nitrite Negative (NEGATIVE) Urine Bilirubin Negative (NEGATIVE) Urine Urobilinogen Normalmg/dL (NORMAL) Urine Leukocyte Esterase Negative (NEGATIVE) Urine RBC 0-2/hpf (0-2) Urine WBC 0-5/hpf (0-5) Urine Epithelial Cells None/hpf (NONE-MOD) Urine Crystals None seen (NONE SEEN) Urine Bacteria None/hpf (NONE-FEW) Urine Hyaline Casts None/lpf (NONE) Urine Granular Casts None seen (NONE SEEN) Urine Waxy Casts None seen (NONE SEEN) Urine Red Blood Cell Casts None seen (NONE SEEN) Urine White Blood Cell Casts None seen (NONE SEEN) Urine Mucus None seen (None Seen) Urine Trichomonas None seen (NONE SEEN) Urine Yeast None (NONE SEEN) Urinalysis Comment None Urine Culture Reflexed Not indicated White Blood Count 4.6th/mm3 (3.8-10.1) Red Blood Count 4.17mil/mm3 (4.40-5.80) Hemoglobin 11.8g/dL (13.8-17.2) Hematocrit 34.6% (41.0-50.0) Mean Corpuscular Volume 83.0fL (81-100) Mean Corpuscular Hemoglobin 28.3pg (27.0-35.0) Mean Corpuscular Hemoglobin Concent 34.1% (32.0-37.0) Red Cell Distribution Width 13.5% (12.3-15.4) Platelet Count 182bil/L (150-400) Phosphorus Level 4.5mg/dL (2.5-4.9) Sodium Level 141mEq/L (134-144) Potassium Level 4.2mEq/L (3.5-5.2) Chloride Level 101mEq/L (97-108) Carbon Dioxide Level 26mmol/L (18-29) Blood Urea Nitrogen 40mg/dL (8-27) Creatinine 1.60mg/dL (0.76-1.27) Estimat Glomerular Filtration Rate 47mL/min (>59) Glucose Level 205mg/dL (60-99) Calcium Level 9.4mg/dL (8.5-10.1) Total Bilirubin 0.4mg/dL (0.0-1.2) Aspartate Amino Transf (AST/SGOT) 13U/L (0-50) Alanine Aminotransferase (ALT/SGPT) 6U/L (0-44) Alkaline Phosphatase 55U/L (25-160) Total Protein 6.7g/dL (6.4-8.4) Albumin 4.1g/dL (3.4-5.0) Discharge Medications Discharge Medications Allopurinol (Allopurinol) 100 Mg Tablet 100 MG PO DAILY (Reported) Aspirin Chew (Aspirin Chew) 81 Mg Chew 81 MG PO DAILY (Reported) Cholecalciferol (Vitamin D3) (Vitamin D) 1,000 Unit Capsule 2,000 UNIT PO DAILY (Reported) Clonidine (Catapres) 0.1 Mg Tablet 0.2 MG PO TID Prescribed by: HARLEEN MCKEON DO Clopidogrel Bisulfate (Plavix) 75 Mg Tablet 75 MG PO DAILY (Reported) Gabapentin (Gabapentin) 600 Mg Tablet 600 MG PO DAILY (Reported) Gabapentin (Gabapentin) 600 Mg Tablet 600 MG PO Noon (Reported) Gabapentin (Gabapentin) 600 Mg Tablet 1,200 MG PO HS (Reported) Hydralazine (Hydralazine) 50 Mg Tablet 50 MG PO TID Prescribed by: HARLEEN MCKEON DO Isosorbide MN ER (Isosorbide MN ER) 60 Mg Tab.er.24h 60 MG PO DAILY (Reported) Labetalol (Labetalol) 200 Mg Tablet 200 MG PO BID Prescribed by: NAVI WINSLOW MD Losartan Potassium (Losartan Potassium) 100 Mg Tablet 100 MG PO DAILY (Reported ) Multivitamin (Multivitamins) 1 Each Capsule 1 EACH PO DAILY (Reported) Simvastatin (Simvastatin) 10 Mg Tablet 10 MG PO HS (Reported) Spironolactone (Aldactone) 25 Mg Tablet 75 MG PO BID Prescribed by: HARLEEN MCKEON DO Tamsulosin (Flomax) 0.4 Mg Capsule 0.4 MG PO DAILY (Reported) As needed Albuterol HFA (Proair HFA) 8.5 Gm Hfa.aer.ad 2 PUFFS INHALATION Q4H PRN PRN For Shortness of Breath (Reported) Docusate Sodium (Colace) 100 Mg Capsule 200 MG PO BID PRN PRN For Constipation ( Reported) Additional med instructions His prolactin will be increased to 75 mg twice a day as recommended by Dr. Vargas. Followup Plan Discharge Diet: Renal Diet Discharge Activity: Outpatient Physical Therapy, Other (gradually return to activity as tolerated) Patient Instructions Please follow-up with your primary care physician within one week. If an appointment has not already been made and please call to schedule an appointment. Please follow-up with Dr. Vargas on 08/09/2016 at your regularly scheduled appointment. Follow-up with PCP in: 1 week Provider: Bennie Vargas DO Follow-up in: 1 week Harleen Mckeon DO Aug 07, 2016 12:28
[2016-08-07 12:45] VITALS: BP 161/85; PULSE 65; RESP 20; O2SAT 95
--- NOTE | 2016-08-07 14:06 | NUR ---
Discharge Note Patient given all discharge instructions and information. Patient's IV discontinued intact at this time. Patient's family member will not be here to pick him up until 3pm. Patient will be transported via wheelchair to waiting vehicle once family member arrives.
--- NOTE | 2016-08-07 15:43 | NUR ---
Final Discharge Note Patient transported via wheelchair to waiting vehicle after seen by social studies teacher.
--- NOTE | 2016-08-07 15:46 | NUR ---
Social Work: Initial Assessment / D/C Data: Pt is a 61 y/o male admitted for renal failure, primary hyperaldosteronis. Pt's PCP is no listed, pt's insurance is [employer]. EMR reviewed, PT recommending home at this time. MASTER HEARTH TECHNICIAN met with pt at bedside with his sister, role explained. Pt states that he lives alone in [place] in a single story home where he uses a walker, cane, and Cpap machine. Pt states he has a DPOA but is in the process of changing who it is. Pt states that he has had HH and SNF in the past, no LTC or VA benefits, and is not a caregiver for another. Pt's sister will provide a ride home this afternoon. No further d/c planning needs. Assessment: Pt who is independent at baseline. Plan: Pt will d/c home via POV with sister today. No further d/c planning needs. KYEL will continue to follow if needs arise. KYLE Lagunas Addendum: 08/07/16 at 1548 by MARÍA CESPEDES Amended: Links added.
== END 2016-08-07 15:38 | disposition home or self-care (01) ==
LOC: SED 13:45 → MOC 18:01
PROVIDERS: ADMIT Urology; ATTEND Urology
DX: N28.89 Other specified disorders of kidney and ureter (principal); E26.9 Hyperaldosteronism, unspecified; N17.9 Acute kidney failure, unspecified; I10 Essential (primary) hypertension; E78.5 Hyperlipidemia, unspecified; E11.65 Type 2 diabetes mellitus with hyperglycemia; N28.9 Disorder of kidney and ureter, unspecified; E86.0 Dehydration; J45.909 Unspecified asthma, uncomplicated; I50.32 Chronic diastolic (congestive) heart failure; I69.251 Hemiplegia and hemiparesis following other nontraumatic intracranial hemorrhage affecting right dominant side; G47.33 Obstructive sleep apnea (adult) (pediatric); N40.0 Benign prostatic hyperplasia without lower urinary tract symptoms; L97.929 Non-pressure chronic ulcer of unspecified part of left lower leg with unspecified severity; L97.919 Non-pressure chronic ulcer of unspecified part of right lower leg with unspecified severity; Z79.82 Long term (current) use of aspirin; Z79.4 Long term (current) use of insulin
CPT/HCPCS: 36415; 74170; 76770; 80048; 80053; 80069; 81000; 83735; 84484; 85025; 85027; 97162; 99285; G0378; J1650; J1815; J7030; Q9967

== ENCOUNTER 2016-10-28 19:15 | Inpatient (IN) | payer MEDICARE ==
[~2016-10-28] VITALS: Ht 180.3 cm; Wt 114.0 kg
[~2016-10-28 19:15] MED LIST changes: +CLON0.1T14 PO; -CLON0.3T PO; -FRSM80T PO; +HYDR-3940 PO; -HYDR100T27 PO; -MINO10TA PO; -OMEG1CAP2 PO
[2016-10-28 19:22] VITALS: BP 115/62; PULSE 77; RESP 20; O2SAT 97
[2016-10-28 21:13] LABS: BASOPHILS % (AUTO) 0.7 % (0-3); EOSINOPHILS % (AUTO) 3.2 % (0-5); MONOCYTES % (AUTO) 5.7 % (4-12); Mean Corpuscular Hemoglobin 30.2 pg (27.0-35.0); Mean Corpuscular Volume 89.2 fL (81-100); Platelet Count 171 bil/L (150-400)
[2016-10-28 21:14] VITALS: BP 143/80; PULSE 65; O2SAT 99
[2016-10-28] MEDS ORDERED: Insulin Human REGular-Omnicell 100 Unit/mL IV ONE (21:20)
[2016-10-28] MEDS ORDERED: Furosemide 10 mg/mL 2 mL Inj IVPUSH ONE (21:20)
[2016-10-28] MEDS ORDERED: Sodium Bicarb (50 mEq) 8.4% 1 mEq/mL 50 mL Syringe IVPUSH ONE (21:20)
[2016-10-28] MEDS ORDERED: Calcium GLUCOnate 10% (Gm) 1 Gm/10 mL Inj IVPUSH PRN (21:20)
[2016-10-28] MEDS ORDERED: 0.9% Sodium Chloride 1,000 ML IV ONE (21:25)
--- NOTE | 2016-10-28 21:58 | DRSVH ---
PROCEDURE: X-RAY CHEST ONE VIEW, PORTABLE ([id number]) INDICATIONS: Hyperkalemia TECHNIQUE: One view of the chest was acquired. COMPARISON: None. FINDINGS: Surgical changes and devices: None. Lungs and pleura: No pleural effusions or pneumothorax. Lungs are clear. Mediastinum: Mediastinal contours appear normal. Heart size is normal. Bones and chest wall: No suspicious bony lesions. Overlying soft tissues appear unremarkable. IMPRESSION: No acute disease Dictated by: Roddy Mtz M.D. on 10/28/2016 at 21:56 Approved by: Roddy Mtz M.D. on 10/28/2016 at 21:56
[2016-10-28 22:34] VITALS: BP 135/58; PULSE 66; RESP 18; O2SAT 100
[2016-10-28 23:30] VITALS: BP 121/70; PULSE 68; RESP 14; O2SAT 98
[2016-10-28] MEDS ORDERED: CLON0.3T PO (23:49)
[2016-10-28] MEDS ORDERED: SPIR100T3 PO (23:49)
[2016-10-29] VITALS (7 sets, daily range): BP systolic 116–184; BP diastolic 66–88; PULSE 69–102; RESP 18–20; O2SAT 94–98
--- NOTE | 2016-10-29 01:12 | ED.REPORT ---
HPI-General Illness Date of Service Oct 28, 2016 ED Provider: Alex Calhoun MD Andrew Virk is a pleasant 61-year-old gentleman with history of hypertension, chronic kidney disease stage GIII a, diabetes mellitus, congestive heart failure , who presents to the [facility] emergency department with 3-4 days of increasing general weakness, he said today it became a lot worse he went to urgent care where they told him to go to the emergency department. He does not proceed having more weakness on one side of the body than the other, he has a history of CVA in 2006 which she has residual right-sided weakness. He is accompanied by his brother who conveys his baseline is usually more energetic, but his mentation, memory, speech are essentially at baseline. He is on numerous medications for his chronic diseases including spironolactone 100 mg twice a day, clopidogrel, clonidine, simvastatin, aspirin, allopurinol, tamsulosin, and losartan. He states he has never felt this way before, he denies any fevers, chills, headaches, changes in vision, neck stiffness or pain , chest pain, shortness of breath, abdominal pain, nausea/vomiting/diarrhea or constipation. He has a chronic redness and swelling to his right lower extremity with a wound which he says he says is chronic, he does not say his lower extremities are in a larger than normal, he denies any weight gain in fact he said he was recently told he has lost 9 pounds. He was hospitalized in July, and discharged with the diagnosis hyperaldosteronism. He denies any change in his urinary frequency, or dysuria. Denies any recent falls or head trauma. Nursing Notes Stated Complaint: WEAKNESS Chief Complaint: General Complaint Nursing Notes Reviewed: Yes Allergies: Coded Allergies: No Allergy Information Available (Verified Allergy, Unknown, RENAL INSUFFICIENCY DUE TO UNKNOWN ANTIBIOTIC, 12/09/15) Uncoded Allergies: antibiotic of unknown (Allergy, Unknown, 05/10/14) Scheduled Allopurinol (Allopurinol) 100 Mg Tablet 100 MG PO DAILY Aspirin Chew (Aspirin Chew) 81 Mg Chew 81 MG PO DAILY Cholecalciferol (Vitamin D3) (Vitamin D) 1,000 Unit Capsule 2,000 UNIT PO DAILY Clonidine (Clonidine) 0.3 Mg Tablet 0.3 MG PO TID Clopidogrel Bisulfate (Plavix) 75 Mg Tablet 75 MG PO DAILY Gabapentin (Gabapentin) 600 Mg Tablet 600 MG PO DAILY Gabapentin (Gabapentin) 600 Mg Tablet 600 MG PO Noon Gabapentin (Gabapentin) 600 Mg Tablet 1,200 MG PO HS Hydralazine (Hydralazine) 50 Mg Tablet 50 MG PO TID Isosorbide MN ER (Isosorbide MN ER) 60 Mg Tab.er.24h 60 MG PO DAILY Labetalol (Labetalol) 200 Mg Tablet 200 MG PO BID Losartan Potassium (Losartan Potassium) 100 Mg Tablet 100 MG PO DAILY Multivitamin (Multivitamins) 1 Each Capsule 1 EACH PO DAILY Simvastatin (Simvastatin) 10 Mg Tablet 10 MG PO HS Spironolactone (Spironolactone) 100 Mg Tablet 100 MG PO BID Scheduled PRN Albuterol HFA (Proair HFA) 8.5 Gm Hfa.aer.ad 2 PUFFS INHALATION Q4H PRN PRN For Shortness of Breath Docusate Sodium (Colace) 100 Mg Capsule 200 MG PO BID PRN PRN For Constipation General Time Seen by MD: 21:10 Chief Complaint Weakness Hx Obtained From: Patient Sudden in Onset?: No Similar Sx Previous: No Past Medical History Past Medical History Notes: Patient admitted 07/15-07/25,17 for acute kidney injury, accelerated hypertension, and pedal edema for nephrology consult by Dr. Vargas, time of discharge labs for hyper aldosteronism were pending. 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 Past Surgical History ORIF fingers with reconstruction Family History Reviewed, not relevant Smoking History Never Smoker Social History Alcohol Use: "Social" Drug Use: Denies drug use Other Social History: Good social support, Occupation Unemployed Ambulatory Status Cane Review of Systems Complete sys rev & neg: except as marked. Physical Exam General: Laying in bed, no apparent distress, mildly disheveled. HEENT: Normocephalic, atraumatic, there is crusting around his lips, and dried dirt in his neck folds, mucous membranes are moist, conjunctiva pink, neck is supple without lymphadenopathy, there is no diaphoresis, external ears are normal, poor dentition. Cardiovascular: Regular rate and rhythm, no clicks murmurs rubs, peripheral pulses 2/4 equal bilaterally Pulmonary: Breath sounds are distant, there are bibasilar rales that charu with deep breaths. There is tachypnea with abdominal muscle recruitment. Abdominal: Soft to palpation, bowel sounds present 4, no hepatosplenomegaly. Negative rebound. Abdomen is rotund, unable to appreciate fluid level. Extremities: Bilateral lower extremities are edematous, moderate pitting edema to the level of upper knee, right lower extremity has pretibial wound, and has redness up to mid pretibial area, it is nontender, nondeformed, there are no open ulcers. Neuro: Right-sided facial droop, baseline since previous CVA, right-sided weakness baseline from CVA, right-sided decreased sensation. Tongue is midline , uvula midline, other than the facial droop at rest, cranial nerves II through XII intact. MSK: Patient was brought in by wheelchair, he has global weakness, there is a tremor to his upper extremities when attempting to passively move his arms, no tremor at rest. Strength is 4 out of 5 to bilateral upper extremities, 3 out of 5 to left lower extremity, 2 out of 5 to right lower extremity which patient says is new within the last 24 hours. Vital Signs Vital Signs Date Time Temp Pulse Resp B/P Pulse Ox O2 Delivery O2 Flow Rate FiO2 10/28/16 23:30 68 14 121/70 98 Room Air 10/28/16 22:34 66 18 135/58 100 Room Air 10/28/16 21:14 65 143/80 99 Room Air 10/28/16 19:22 36.1 77 20 115/62 97 Room Air Initial VS: Reviewed, Vital signs normal Interpretation & Diagnostics Lab Results Interpretation Result Diagram: 10/29/16 0235 10/29/16 0440 Test 10/28/16 21:50 10/28/16 22:53 Lactic Acid Level 0.8mmol/L (0.4-2.0) Hold Agarwal Top Tube Received (Received) Lab Results Interpretation: Anion Gap of 12 Hyperkalemia Acute worsening of chronic kidney disease Prerenal azotemia Mild anemia Non-anion gap acidosis ECG Interpretation ECG Interpretation: Rate 64, "junctional rhythm, left bundle branch block." Tall T waves with widening QRS. Substantial change from previous EKG 07/16/2016, P wave is seen in V1, OR interval measured as being 260 ms by calipers X-Ray Chest Interpretation Chest Xray Interpretation: IMPRESSION: No acute disease Dictated by: Roddy Mtz M.D. on 10/28/2016 at 21:56 Interpretation / Wet Read by: Interpret - Radiologist CT Head Interpretation "Conclusion: No acute intracranial hemorrhage is identified. Findings consistent with an old left parietal lobe infarct. Findings consistent with an old lacunar infarct in the left coronal radiata. Findings consistent with small vessel ischemia change, which is probably chronic." Study: Head CT no contrast Interpretation / Wet Read by: Interpret - Radiologist Re-Eval/Medical Decision Med Decision/Clinical Course This patient was found to be severely hyperkalemic at 8.8, with acute on chronic kidney injury and EKG changes consisting of full left bundle-branch block. The patient was monitored and multiple modalities were initiated to treat the hyperkalemia including IV fluids, IV calcium, IV sodium bicarbonate, IV insulin and glucose protocol, and Kayexalate. Repeat laboratories showed improvement of the hyperkalemia. Case was discussed with Dr. Vargas, well service floorperson nephrology, who felt the patient was appropriate for admission here. He will consult formally in the morning. Case was discussed with Dr. Donovan who will admit the patient to the CCU. Please see inpatient charting for other details. Consultation #1: Referral / Consult Name: Ger Donovan MD Consulted With: Hospitalist Note: Patient was discussed with hospitalist on-call, he stated patient needed emergent dialysis and recommended transfer to facility which is able to provide it. Consultation #2: Referral / Consult Name: Bennie Vargas DO Consulted With: Nephrology Call Returned at: 01:01 Hotel Services Supervisor: Agrees with eval, Agrees with plan Note: Dr. Calhoun discussed patient's case with Dr. Vargas. Consultation #3: Referral / Consult Name: Ger Donovan MD Consulted With: Hospitalist Call Returned at: 01:07 Hotel Services Supervisor: Agrees with eval, Agrees with plan, Accepts admit Note: Dr. Calhoun discussed patient's case and nephrology consult with Dr. Donovan. Counseled Regarding: Diagnosis, Lab results, Need for admission Discharge & Departure Primary Impression: Acute on chronic renal insufficiency Additional Impression: Acute hyperkalemia Disposition: ADMITTED TO HOSPITAL Discharge Condition All VS Reviewed: Yes Condition: Stable Referrals: OTHER,PHYSICIAN (PCP) Crit Care Except Billable Proc Time Spent: 30-74 minutes Services Performed: Patient management by me, Time spent at bedside, Reviewing test results, Reviewing imaging, Discussing patient care, Documentation in record, Time with fam/surrogate Critical Care Notes: Severe hyperkalemia with EKG changes treated with multiple IV medications and admitted to CCU. Scribe Attestation Portions of this note were transcribed by Nallely iRvas. I, Dr. Calhoun, personally performed the history, physical exam, and medical decision-making; I reviewed and confirmed the accuracy of the information in the transcribed note. Signed by: Tiago Bradford, 10/29/2016, 01:15 Jensen Mack DO Oct 28, 2016 21:47 NALLELY RIVAS Oct 29, 2016 01:12 Alex Calhoun MD Oct 29, 2016 05:28 Estimat Glomerular Filtration Rate 25mL/min (>59) Glucose Level 109mg/dL (60-99) Calcium Level 9.9mg/dL (8.5-10.1) Total Bilirubin 0.4mg/dL (0.0-1.2) Aspartate Amino Transf (AST/SGOT) 15U/L (0-50) Alanine Aminotransferase (ALT/SGPT) 7U/L (0-44) Alkaline Phosphatase 62U/L (25-160) Total Protein 8.2g/dL (6.4-8.4) Albumin 4.6g/dL (3.4-5.0) Lactic Acid Level 0.8mmol/L (0.4-2.0) Hold Agarwal Top Tube Received (Received) Potassium Level 7.5mEq/L (3.5-5.2) Lab Results Interpretation: Anion Gap of 12 Hyperkalemia Acute worsening of chronic kidney disease Prerenal azotemia Mild anemia Non-anion gap acidosis ECG Interpretation ECG Interpretation: Rate 64, "junctional rhythm, left bundle branch block." Tall T waves with widening QRS. Substantial change from previous EKG 07/16/2016, P wave is seen in V1, OR interval measured as being 260 ms by calipers X-Ray Chest Interpretation Chest Xray Interpretation: IMPRESSION: No acute disease Dictated by: Roddy Mtz M.D. on 10/28/2016 at 21:56 Interpretation / Wet Read by: Interpret - Radiologist CT Head Interpretation "Conclusion: No acute intracranial hemorrhage is identified. Findings consistent with an old left parietal lobe infarct. Findings consistent with an old lacunar infarct in the left coronal radiata. Findings consistent with small vessel ischemia change, which is probably chronic." Study: Head CT no contrast Interpretation / Wet Read by: Interpret - Radiologist Re-Eval/Medical Decision Consultation #1: Referral / Consult Name: Ger Donovan MD Consulted With: Hospitalist Note: Patient was discussed with hospitalist on-call, he stated patient needed emergent dialysis and recommended transfer to facility which is able to provide it. Consultation #2: Referral / Consult Name: Bennie Vargas DO Consulted With: Nephrology Call Returned at: 01:01 Hotel Services Supervisor: Agrees with eval, Agrees with plan Note: Dr. Calhoun discussed patient's case with Dr. Vargas. Consultation #3: Referral / Consult Name: Ger Donovan MD Consulted With: Hospitalist Call Returned at: 01:07 Hotel Services Supervisor: Agrees with eval, Agrees with plan, Accepts admit Note: Dr. Calhoun discussed patient's case and nephrology consult with Dr. Donovan. Discharge & Departure Referrals: OTHER,PHYSICIAN (PCP) Scribe Attestation Portions of this note were transcribed by Nallely Rivas. I, Dr. Calhoun, personally performed the history, physical exam, and medical decision-making; I reviewed and confirmed the accuracy of the information in the transcribed note. Signed by: Tiago Bradford, 10/29/2016, 01:15 Jensen Mack DO Oct 28, 2016 21:47 NALLELY RIVAS Oct 29, 2016 01:12
[2016-10-29] MEDS ORDERED: Ondansetron 2 mg/mL 2 mL Inj IVPUSH PRN (01:55)
[2016-10-29] MEDS ORDERED: Alum-Mag Hydrox-Simeth 30 mL Suspension PO PRN (01:55)
[2016-10-29] MEDS ORDERED: Polyethylene Glycol (PEG) 17 Gm Powder PO PRN (01:55)
--- NOTE | 2016-10-29 02:08 | PCM.HPMED ---
Subjective Date of Service Oct 29, 2016 Primary Provider: Admitting Physician: Ger Donovan MD Primary Care Physician: Other,Physician Attending Physician: Ger Donovan MD Admit Status: From the Emergency Department Chief Complaint: Worsening Generalized weakness for the past 4 days, sent over by urgent care. 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 Patient states that prior to 4 days ago he was fine. Patient normally has little difficulty ambulating on his own. Patient uses a cane. Over the past 4 days he complains of worsening generalized weakness. Patient was in by his PCP Dr. Juliocesar Celaya prior to admission and received Keflex 500 mg 4 times a day X10 days for a right lower extremity anterior tibial wound. Pt. reports he has a chronic redness and swelling to his right lower extremity. Denies any worsening of his right lower extremity swelling and redness and says he believes it may actually have improved some since starting antibiotics. He does not believe the LE swelling in the right leg has worsened. Patient states that this is the only medication change that she has had a recent. Patient was seen on 10/28/[address] care[address] per Dr. Vargas's note, had generalized weakness, reported mild shortness of breath with exertion, but denied it at rest and denied chest pain. He was reported not to be in any distress at the time of his urgent care visit today. Patient was transferred to the [facility] ED for further evaluation. Of note patient states that he was able to ambulate from the parking lot into urgent care with little difficulty. But then later had difficulty even standing up to get out of the wheelchair. He does not perceive any additional focal weakness from his baseline. He is he is usually more energetic. There has been no changes in his mentation, memory, speech from his normal baseline. In the ED He was found to be hyperkalemic with a potassium of 8.8 and EKG showed additional signs of hyperkalemia with peaked T's and lack of P waves. He was given sodium bicarbonate 50 mEq, Kayexalate 45 g once by mouth, D50 with 10 units of insulin. In in addition patient received Lasix 40 mg IV once, and calcium gluconate 1 gm Patient was given 1 L bolus of normal saline. EKG showed: Rate of 64, junctional rhythm, left bundle branch block, peaked T waves with wording of the QRS, compared to previous EKG 07/16/2026 there is substantial changes, lengthening of the MN interval measured to be 260 ms. Note patient is on numerous medications for his chronic diseases including spironolactone 100 mg twice a day, clopidogrel, clonidine, simvastatin, aspirin , allopurinol, tamsulosin, and losartan potassium. Patient reports recent 9 lb weight loss. Patient denied fevers, chills, headaches, changes in vision, neck stiffness or pain, chest pain, shortness of breath, abdominal pain, nausea/ vomiting/diarrhea or constipation, sick contacts, recent travel, dysuria, hematuria, urinary retention. Denies any recent falls or head trauma. Also of note patient was seen by Dr. Vargas as an inpatient back in July when he was diagnosed with hyperaldosteronism and as an outpatient for his chronic kidney disease. He was last seen in clinic on 09/10/2016 for evaluation of his chronic kidney disease, hypertension and primary hyperaldosteronism. Dr. Vargas remarked in his note, that patients lower extremity edema appeared minimal at that time. Patient denied any orthopnea or nocturnal dyspnea at that time. His potassium was 4.9 on that visit. His BUN of 55 and creatinine 1.14. His GFR was 55. Since most recent hemoglobin A1c was 6.6 on 10/07/2016 at his PCP. Vital signs in the ED: He 36.1, P 77, BP 115/62, RR 20, O2 97% on room air Hemogram showed WBC's 7.0, neutrophils 74%, H/H 11.5/34.0, MCV 89.2, MCH 30.2, MCHC 33.8, platelet count 171. Chemistry panel: Sodium 135, potassium elevated at 8.5-->8.8 and then 7.5 after medical therapy, chloride 110, CO2 13, BUN 107, creatinine 2.73, patient's baseline creatinine ranges from 1.47 (05/2016) to high of 3.45 on 07/2016. glucose 109, otherwise normal chemistry panel. Blood cultures were ordered and are pending on this admit. Echocardiogram dated 10/11/2016 showed: Moderate concentric left ventricular hypertrophy with normal wall motion and LVEF of 60-65%. Normal right ventricular size and function, no gross valvular disease, no pericardial effusion. Review of Systems: A comprehensive review of systems was conducted and was negative except as mentioned in history of present illness. Allergies Coded Allergies: No Allergy Information Available (Verified Allergy, Unknown, RENAL INSUFFICIENCY DUE TO UNKNOWN ANTIBIOTIC, 12/09/15) Uncoded Allergies: antibiotic of unknown (Allergy, Unknown, 05/10/14) Home Medications Allopurinol (Allopurinol) 100 Mg Tablet 100 MG PO DAILY Aspirin Chew (Aspirin Chew) 81 Mg Chew 81 MG PO DAILY Cholecalciferol (Vitamin D3) (Vitamin D) 1,000 Unit Capsule 2,000 UNIT PO DAILY Clonidine (Clonidine) 0.3 Mg Tablet 0.3 MG PO TID Clopidogrel Bisulfate (Plavix) 75 Mg Tablet 75 MG PO DAILY Gabapentin (Gabapentin) 600 Mg Tablet 600 MG PO DAILY Gabapentin (Gabapentin) 600 Mg Tablet 600 MG PO Noon Gabapentin (Gabapentin) 600 Mg Tablet 1,200 MG PO HS Hydralazine (Hydralazine) 50 Mg Tablet 50 MG PO TID Isosorbide MN ER (Isosorbide MN ER) 60 Mg Tab.er.24h 60 MG PO DAILY Labetalol (Labetalol) 200 Mg Tablet 200 MG PO BID Losartan Potassium (Losartan Potassium) 100 Mg Tablet 100 MG PO DAILY Multivitamin (Multivitamins) 1 Each Capsule 1 EACH PO DAILY Simvastatin (Simvastatin) 10 Mg Tablet 10 MG PO HS Spironolactone (Spironolactone) 100 Mg Tablet 100 MG PO BID Tamsulosin 0.4 mg daily for BPH Lovaza 1 g omega-3 acid ethyl esters 3 caps by mouth daily PRN Albuterol HFA (Proair HFA) 8.5 Gm Hfa.aer.ad 2 PUFFS INHALATION Q4H PRN PRN For Shortness of Breath Docusate Sodium (Colace) 100 Mg Capsule 200 MG PO BID PRN PRN For Constipation PMH Stroke 2006 with residual R-sided weakness obstructive sleep apnea Gout in right foot Diastolic CHF preserved left ventricular function Left ventricular hypertrophy History pericardial effusion Hypertension Diabetes - Type II Diabetic nephropathy Chronic renal disease stage G3a Neuropathy Hyperlipidemia Chronic leg ulcerations follow the wound care center BPH Hyperaldosteronism (new dx 07/2016) Adrenal cortical adenoma of right adrenal gland Patient Denies every have reactive airway disease. Obstructive sleep apnea Chronic edema Obesity Surgical History Left third finger ORIF with reconstruction Family History Maternal grandmother with diabetes mellitus Mother with hypertension, breast cancer Sister with stroke father with colon cancer and metastases to the liver. Social History Hx Alcohol Use: No Hx Substance Use: No Hx Tobacco Use: No Smoking Status: Never Smoker Exam Vital Signs Vital Sign - Last Date Time Temp Pulse Resp B/P Pulse Ox O2 Delivery O2 Flow Rate FiO2 10/29/16 01:47 72 18 136/71 98 Room Air 10/28/16 19:22 36.1 Intake and Output 10/28/16 10/28/16 10/29/16 Cumulative From/Thru 15:00 23:00 07:00 10/28/16 19:22 - 10/28/16 22:27 Intake Total 1000 ml 1000 ml Balance 1000 ml 1000 ml Intake IV Total 1000 ml 1000 ml Exam General: HEENT: NC/AT, eyes, PERRLA, EOMI, neck, soft supple, no adenopathy, no JVD, no masses, no thyromegaly, throat mucous membranes pink and moist/Dry, no erythema , no exudates, no tonsillar swelling, no uvular deviation. Lungs: CTAB all velez, no wheezes, no rhonchi, no crackles, no adventitious lung sounds, no use of accessory muscles of respiration, good air movement, good respiratory effort. Heart: Regular rate and rhythm, no murmur, S1-S2 present, no rub, no click, no distant heart sounds, Abdomen: Soft, nontender, nondistended, bowel sounds active, no rebound, no guarding, Genitourinary: No CVA tenderness, no suprapubic tenderness, no Wayne catheter, Extremities: Muscle strength, 5 out of 5 upper/lower extremity and symmetric laterally, reflexes 2 out of 4 upper/lower extremity and symmetric bilaterally, pulses equal and symmetric upper/lower extremity including radial and dorsalis pedis, no edema Neurologic: See neurologically intact, PT in full sentences, no focal neurological signs, [id number], [id number], no pronator drift, no hemineglect. Skin: Psychiatric: Mood is cheerful and mood and affect are congruent and appropriate. Lab and Diagnostics Result Diagram: 10/28/16203110/29/16 0005 X-Rays, CTs and MRIs Date of Service: 10/28/162117 PROCEDURE: X-RAY CHEST ONE VIEW, PORTABLE INDICATIONS: Hyperkalemia TECHNIQUE: One view of the chest was acquired. COMPARISON: None. FINDINGS: Surgical changes and devices: None. Lungs and pleura: No pleural effusions or pneumothorax. Lungs are clear. Mediastinum: Mediastinal contours appear normal. Heart size is normal. Bones and chest wall: No suspicious bony lesions. Overlying soft tissues appear unremarkable. IMPRESSION: No acute disease Dictated by: Roddy Mtz M.D. on 10/28/2016 at 21:56 Approved by: Roddy Mtz M.D. on 10/28/2016 at 21:56 Assessment & Plan This is a 61-year-old male with complex past medical history of hypertension, chronic kidney disease stage III, diabetic nephropathy, history of stroke with right sided residual weakness, Conn syndrome, hypertension, who was admitted to the hospital secondary to acute onset generalized weakness onset 4 days ago. Patient was found to be hyperkalemic with EKG changes and nephrology was consulted who recommended and agreed with admission. # Generalized weakness, present on admission, active - Patient had CT head which showed no acute intracranial hemorrhage identified, findings consistent with an old parietal lobe infarct, findings consistent with an old lacunar infarct left coronal radiata. Findings consistent with small vessel ischemic changes which is probably chronic. Dilation of the posterior portion left ventricle as compared to the right. - Likely multi factorial secondary to symptomatic hyperkalemia, and chronic anemia - Patient denied syncope or near syncope or falls - Patient reports improvement in his symptoms since being admitted and receiving medical treatment. # Hyperkalemia, present on admission, active - He was found to be hyperkalemic with a potassium of 8.8 and EKG showed additional signs of hyperkalemia with lack of P waves. He was given sodium bicarbonate 50 mEq, Kayexalate 45 g once by mouth, D50 with 10 units of insulin, - In in addition patient received Lasix 40 mg IV once, and calcium gluconate 1 gm - EKG showed: Rate of 64, junctional rhythm, left bundle branch block, peaked T waves with wording of the QRS, compared to previous EKG 07/16/2026 there is substantial changes, lengthening of the MN interval measured to be 260 ms. - Patient was given 1 L bolus of normal saline and 80. - We will hold outpatient medications spironolactone - We will give calcium gluconate when necessary - We will give additional glucose and IV insulin if necessary - We will give albuterol neb if necessary - Continuous cardiac monitoring - Patient to be seen by nephrology in the morning. Dr. Vargas has been consulted on the phone by the ED. He is aware of the patient. Plan is for patient to go to dialysis in the morning, unless determined otherwise by nephrology. # Anemia, normochromic normocytic, present on admission, active - H/H 11.5/34.0, MCV 89.2, MCH 30.2, MCHC 33.8 # Right lower extremity anterior tibial wound, with cellulitis, present on admission - On 10/26/2016 patient had right lower extremity to be tib-fib x-ray that showed no fracture, bony lesion or osteomyelitis. No official report was available for review. - Patient reports the wound is somewhat improved since starting oral antibiotics. - Patient was prescribed Keflex 500 mg 4 times a day for 10 days by his outpatient PCP on 10/26/2016 - Patient has history of chronic leg ulcerations - Wound care evaluation - Continue outpatient fibrotic medication Keflex as previously prescribed for now # Diabetes - Type II - Most recent hemoglobin A1c 6.6 on 10/07/2016 - Assumed controlled as patient not currently on outpatient anti-hyperglycemic medications. - Low-dose correctional scale insulin ordered # Diabetic nephropathy - Patient is followed by a [facility] nephrology Dr. Vargas # Chronic renal disease stage G3a # Stroke 2006 with residual R-sided weakness - Continue aspirin 81 mg daily - We will continue medication Plavix 75 mg daily - Patient has significant right-sided upper and lower extremity clonus - We will continue home medication gabapentin as prescribed - Physical therapy consult # Hypertension - We will continue medication clonidine 0.3 mg tablets by mouth 3 times a day - We will continue medication hydralazine 50 mg tablet by mouth 3 times a day - We will continue isosorbide 60 mg by mouth daily - We will continue medication labetalol 200 mg by mouth twice a day - We will continue medication losartan 100 mg by mouth daily # Hyperaldosteronism (new dx 07/2016) - Likely secondary to adrenal cortical adenoma of right adrenal gland - We will hold home medications spironolactone given patient's current admit for hyperkale # Diastolic CHF preserved left ventricular function - Echocardiogram dated 10/11/2016 showed: Moderate concentric left ventricular hypertrophy with normal wall motion and LVEF of 60-65%. Normal right ventricular size and function, no gross valvular disease, no pericardial effusion. # Left ventricular hypertrophy # History pericardial effusion, resolved - resolved as seen on recent echo # Gout in right foot -Continue outpatient medication allopurinol # Neuropathy - Gabapentin as above #Hyperlipidemia - Continue medication simvastatin 10 mg daily # BPH - Continue medication tamsulosin 0.4 mg every #Obstructive sleep apnea #Chronic edema, presumed stable - Patient reports no worsening of his lower extremity edema. #Obesity - Patient reports recent 9 pound weight loss # Obstructive sleep apnea Disposition: Admitted to in patient service with expected length of stay greater than 2 days, secondary to severity of presenting symptoms, treatment plan, complexity of clinical work up, and risk of adverse events. CODE STATUS: Full code PCP: Dr. Enrique Sims DVT PE prophylaxis: SubQ heparin Q8H Contact: Attending Statement The patient was seen and examined together with Dr. Sarkar on 10/29 and I agree with the history, exam and plan as outlined in the note above. Gagandeep Sarkar DO Oct 29, 2016 02:08 Ger Donovan MD Oct 29, 2016 04:40
[2016-10-29 02:59] LABS: BASOPHILS % (AUTO) 0.8 % (0-3); EOSINOPHILS % (AUTO) 4.2 % (0-5); MONOCYTES % (AUTO) 7.6 % (4-12); Mean Corpuscular Hemoglobin 30.5 pg (27.0-35.0); Mean Corpuscular Volume 89.9 fL (81-100); NEUTROPHILS % (AUTO) 64.9 % (40-74); Platelet Count 164 bil/L (150-400)
[2016-10-29] MEDS ORDERED: Glucose 40% Oral Gel 15 Gm Tube PO PRN (03:45)
[2016-10-29] MEDS: 0.9% Sodium Chloride 1,000 ML IV SCH ×2 (03:48→12:49)
[2016-10-29] MEDS ORDERED: Insulin Human REGular-Omnicell 100 Unit/mL IV ONE (03:50)
[2016-10-29] MEDS ORDERED: Albuterol 0.5% (5mg/mL) 20 mL Inhalation Solution NEB ONE (03:50)
[2016-10-29] MEDS ORDERED: Furosemide 10 mg/mL 10 mL Inj IVPUSH ONE (06:45)
--- NOTE | 2016-10-29 07:13 | NUR ---
Admit Admitted to room 2021, on program to lower potassium, gave D-50, 10 Unit H-R. [place] sugr 116. telemetry SR-70's 1st degree, IVCD's NS@ 100, room air, rt sided deficits from CVA noted.
[2016-10-29] MEDS: Insulin LISPRO 300 Unit/3 mL Inj SUBQ SCH ×4 (08:00→22:00)
--- NOTE | 2016-10-29 08:14 | DRSVH ---
PROCEDURE: CT BRAIN WITHOUT CONTRAST ([id number]) INDICATIONS: RLE weakness, Global weakness. TECHNIQUE: Noncontrast 4.5 mm thick angled axial sections acquired from the foramen magnum to the vertex, with c oronal reformats. COMPARISON: [facility], CT, BRAIN W/O CONTRAST, 07/21/2007, 22:51. [facility] l, CT, BRAIN W/O CONTRAST, 06/07/2012, 12:36. [facility], MR, STROKE PROTOCOL (PNL), , 17:32. [facility], CT, CT BRAIN WO CON, 12/08/2015, 20:49. FINDINGS: Image quality: Excellent. CSF spaces: Basal cisterns are patent. No extra-axial fluid collections. The ventricles are symmet wanda in size and shape. Brain: There is subtle hypodensity in the left temporal lobe. There is an old infarct in the left pa rietal lobe with associated encephalomalacia. Old lacunar infarcts is seen in the left melton radiata . No intracranial bleeds or masses. There is cerebral volume loss for age, with resultant ventricula r and sulcal prominence. There are periventricular and deep white matter chronic small vessel ischem ic changes. There is intracranial internal carotid artery atherosclerosis. Skull and face: Calvarium and visualized facial bones appear intact, without suspicious lesions. Sinuses: There is retention cyst in the right maxillary sinus. The mastoids are clear. IMPRESSION: 1. Subtle hypodensity in the left temporal lobe suspicious for acute or subacute infarct. 2. Old cerebral infarct in the right upper lobe with encephalomalacia. 3. Old infarct involving the left melton radiata. 4. Cerebral volume loss and chronic microvascular ischemic changes. The result was discussed with Dr. Hoffman on 10/29/2016 at 0812 hours. Dictated by: Kristin Liriano M.D. on 10/29/2016 at 8:00 Transcribed by: CINDY on 10/29/2016 at 8:13 Approved by: Kristin Liriano M.D. on 10/29/2016 at 9:28
[2016-10-29] MEDS: Isosorbide Mononitrate 60 mg ER24 Tablet PO SCH (08:31)
[2016-10-29] MEDS: Heparin 5,000 Unit/mL Inj SUBQ SCH ×2 (08:32→18:14)
--- NOTE | 2016-10-29 10:06 | NUR ---
Wound Care Wound evaluation orders received, Pt seen at bedside with nursing. 61 yo male admitted to [facility] with increasing generalized weakness. Presents lying in bed with erythema noted at his right lower leg and ankle, this was previously outlined in marking pen and shows some resolution of erythema than when marked. Apparently patient was prescribed Keflex for treatment. There are scabbed wounds at the lower pretibial area of his lehman, no drainage, pulses are good at feet. Applied hydrogel to these wounds to promote debridement of these eschars/scabs and covered with an adhesive foam dressing. Dressing can be changed by nursing daily. Wound will follow up as needed.
--- NOTE | 2016-10-29 11:06 | PCM.PNMED ---
Subjective Date of Service Oct 29, 2016 Subjective Patient has a fair amount of bowel cramping and diarrhea from Kayexalate. No chest pain cough or shortness of breath. He is wheezing but denies COPD or asthma. His normal saline is a 100 hour. His creatinine was elevated. His repeat potassium is 7.2. He denies any other difficulties. 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 Exam Vital Signs Vital Sign - Last Date Time Temp Pulse Resp B/P Pulse Ox O2 Delivery O2 Flow Rate FiO2 10/29/16 08:00 37.0 80 18 116/66 97 Room Air Intake and Output 10/28/16 10/28/16 10/29/16 Cumulative From/Thru 15:00 23:00 07:00 10/28/16 19:22 - 10/29/16 06:21 Intake Total 1000 ml 99 ml 1099 ml Balance 1000 ml 99 ml 1099 ml Intake IV Total 1000 ml 99 ml 1099 ml Exam Alert and oriented 3, no distress. Fluent speech Anicteric sclera. Lungs are normal for expiratory wheezing with normal rate and effort Heart is regular without murmur gallop or rub Abdomen soft nontender, distended with slightly high brought to bowel tones. Extremities are 1+ edema. He has a chronic wound in the right lower extremity in the anterior pretibial region with surrounding erythema. His good pedal pulses. His bingo and wound care for some time for this. Skin is free of rash or lesions. IVs and Medications Medications Reviewed: Medications were reviewed in detail Lab and Diagnostics Result Diagram: 10/29/16 0235 10/29/16 0632 X-Rays, CTs and MRIs Date of Service: 10/28/162117 PROCEDURE: X-RAY CHEST ONE VIEW, PORTABLE INDICATIONS: Hyperkalemia TECHNIQUE: One view of the chest was acquired. COMPARISON: None. FINDINGS: Surgical changes and devices: None. Lungs and pleura: No pleural effusions or pneumothorax. Lungs are clear. Mediastinum: Mediastinal contours appear normal. Heart size is normal. Bones and chest wall: No suspicious bony lesions. Overlying soft tissues appear unremarkable. IMPRESSION: No acute disease Dictated by: Roddy Mtz M.D. on 10/28/2016 at 21:56 Approved by: Roddy Mtz M.D. on 10/28/2016 at 21:56 Assessment & Plan This is a 61-year-old male with complex past medical history of hypertension, chronic kidney disease stage III, diabetic nephropathy, history of stroke with right sided residual weakness, Conn syndrome, hypertension, who was admitted to the hospital secondary to acute onset generalized weakness onset 4 days ago. Patient was found to be hyperkalemic with EKG changes and nephrology was consulted who recommended and agreed with admission. # Generalized weakness, present on admission, active and unchanged. - Patient had CT head which showed no acute intracranial hemorrhage identified, findings consistent with an old parietal lobe infarct, findings consistent with an old lacunar infarct left coronal radiata. Findings consistent with small vessel ischemic changes which is probably chronic. Dilation of the posterior portion left ventricle as compared to the right. - Likely multi factorial secondary to symptomatic hyperkalemia, and chronic anemia - Patient denied syncope or near syncope or falls - Patient reports improvement in his symptoms since being admitted and receiving medical treatment. We will continue to treat the ER identifiable medical problems and worked with physical therapy. # Hyperkalemia, present on admission, active - He was found to be hyperkalemic with a potassium of 8.8 and EKG showed additional signs of hyperkalemia with lack of P waves. He was given sodium bicarbonate 50 mEq, Kayexalate 45 g once by mouth, D50 with 10 units of insulin, - In in addition patient received Lasix 40 mg IV once, and calcium gluconate 1 gm - EKG showed: Rate of 64, junctional rhythm, left bundle branch block, peaked T waves with wording of the QRS, compared to previous EKG 07/16/2026 there is substantial changes, lengthening of the W[place] interval measured to be 260 ms. - Patient was given 1 L bolus of normal saline and 80. - We will hold outpatient medications spironolactone - We will give calcium gluconate when necessary - We will give additional glucose and IV insulin if necessary - We will give albuterol neb if necessary - Continuous cardiac monitoring - Patient to be seen by nephrology in the morning. Dr. Vargas has been consulted on the phone by the ED. He is aware of the patient. Plan is for patient to go to dialysis in the morning, unless determined otherwise by nephrology. We will give a third dose of Kayexalate and increase fluids to 200 per hour . We will discuss with Dr. Vargas of nephrology. # Anemia, normochromic normocytic, present on admission, active - H/H 11.5/34.0, MCV 89.2, MCH 30.2, MCHC 33.8 # Right lower extremity anterior tibial wound, with cellulitis, present on admission . This is stable. This is stable - On 10/26/2016 patient had right lower extremity to be tib-fib x-ray that showed no fracture, bony lesion or osteomyelitis. No official report was available for review. - Patient reports the wound is somewhat improved since starting oral antibiotics. - Patient was prescribed Keflex 500 mg 4 times a day for 10 days by his outpatient PCP on 10/26/2016 - Patient has history of chronic leg ulcerations - Wound care evaluation - Continue outpatient fibrotic medication Keflex as previously prescribed for now # Diabetes - Type II, POA. This is stable - Most recent hemoglobin A1c 6.6 on 10/07/2016 - Assumed controlled as patient not currently on outpatient anti-hyperglycemic medications. - Low-dose correctional scale insulin ordered # Diabetic nephropathy , POA. This is stable - Patient is followed by a [facility] nephrology Dr. Vargas # Chronic renal disease stage G3a , POA. # Stroke 2006 with residual R-sided weakness - Continue aspirin 81 mg daily - We will continue medication Plavix 75 mg daily - Patient has significant right-sided upper and lower extremity clonus - We will continue home medication gabapentin as prescribed - Physical therapy consult # Hypertension, POA. Stable. - We will continue medication clonidine 0.3 mg tablets by mouth 3 times a day - We will continue medication hydralazine 50 mg tablet by mouth 3 times a day - We will continue isosorbide 60 mg by mouth daily - We will continue medication labetalol 200 mg by mouth twice a day - We will continue medication losartan 100 mg by mouth daily # Hyperaldosteronism (new dx 07/2016) - Likely secondary to adrenal cortical adenoma of right adrenal gland - We will hold home medications spironolactone given patient's current admit for hyperkale # Diastolic CHF preserved left ventricular function - Echocardiogram dated 10/11/2016 showed: Moderate concentric left ventricular hypertrophy with normal wall motion and LVEF of 60-65%. Normal right ventricular size and function, no gross valvular disease, no pericardial effusion. # Left ventricular hypertrophy # History pericardial effusion, resolved - resolved as seen on recent echo # Gout in right foot -Continue outpatient medication allopurinol # Neuropathy - Gabapentin as above #Hyperlipidemia - Continue medication simvastatin 10 mg daily # BPH - Continue medication tamsulosin 0.4 mg every #Obstructive sleep apnea #Chronic edema, presumed stable - Patient reports no worsening of his lower extremity edema. #Obesity - Patient reports recent 9 pound weight loss # Obstructive sleep apnea Disposition: Admitted to in patient service with expected length of stay greater than 2 days, secondary to severity of presenting symptoms, treatment plan, complexity of clinical work up, and risk of adverse events. CODE STATUS: Full code PCP: Dr. Enrique Sims DVT PE prophylaxis: SubQ heparin Q8H Contact: Pain Evaluation: Adequate Pain Control VTE Mechanical Devices: Intermittant Pneumatic CD Resuscitation Status: CPR: Attempt Resuscitation Jose David Hoffman MD Oct 29, 2016 11:06
[2016-10-29] MEDS ORDERED: Heparin 5,000 Units/500 mL NS Premix IV ONE (13:28)
[2016-10-29] MEDS ORDERED: Heparin 1,000 Unit/mL 10 mL Inj ONE (13:35)
--- NOTE | 2016-10-29 14:24 | NUR ---
Pain/Diarrhea/K+/Retention Patient admitted with K= of >8. Patient given lasix and kayexalate to remove excess K+. Patient incontinent of loose stool throughout shift, calmoseptine applied with care to prevent skin breakdown. Patient c/o abdominal and foot pain, prn morphine given with good effect. Patient has open sores/cellulitis in RLE but patient states foot pain was ongoing before cellulitis. Patient voided 950ml in urinal this shift but adbdomin distended and tender. Bladder scan showed >777ml. Wayne catheter placed per MD and 1450ml urine drained immediately. Patient currently receiving dialysis in [facility] [place]. K+ currently 6.7. Will continue frequent monitoring when patient returns from dialysis.
--- NOTE | 2016-10-29 14:41 | DRSVH ---
PROCEDURE: CV TEMP DIALYSIS INDICATIONS: Hyperkalemia COMPARISON: None. Fluoroscopy time: 0.3 minutes Technique: 1. Fluoroscopic and sonographically guided not tunneled hemodialysis catheter placement. The indications, alternatives, benefits, risks, and complications of the procedure were explained to the patient.. Informed written consent was obtained and placed in the chart. The patient was edy t to the angiography suite, and monitored by the [facility] staff. Maximum sterile barrier technique was employed per standard protocol, including hand hygiene, cap, ma sk, sterile gown and gloves, and 2% chlorhexidine. Sterile ultrasound probe cover was also utilized. 1% lidocaine was used to anesthetize the skin over the area of interest. Using a micropuncture kit, under ultrasound guidance, the left internal jugular vein was accessed in a antegrade fashion. An 03 5 wire was advanced through the micropuncture sheath with the tip in the inferior vena cava. The veno gavi was serially dilated and a dual-lumen temporary hemodialysis catheter was advanced with the tip in the right aorta. This was secured in place at the skin with nonabsorbable suture. Both lumens were flushed with heparinized saline. FINDINGS: Initial ultrasound demonstrates a widely patent left internal jugular vein. Final spot flu oroscopic image demonstrates an appropriately placed however a left internal jugular vein hemodialysi s catheter. IMPRESSION: Status post sonographic and fluoroscopically guided placement of a temporary left human resources intern al jugular vein hemodialysis catheter. Dictated by: Jewell Morrell M.D. on 10/29/2016 at 14:37 Approved by: Jewell Morrell M.D. on 10/29/2016 at 14:40
--- NOTE | 2016-10-29 15:21 | NUR ---
Social Work- Initial Assessment Data & Assessment: See Initial Assessment. Pt is a 61 year old male admitted for acute hyperkalemia per H&P. Wound Care is following pt. PT evaluation is pending as pt was unable to complete PT due to diarrhea. Pt's insurance is Medicare. Pt's PCP is Enrique Sims MD. SW spoke with pt regarding discharge plan, SW role explained. Pt alert and oriented x3. Pt resides in [place], alone, in a mobile home where he remains independent at base. Pt lives near his brother and sister in law. Pt uses a walker at base, pt has a cane available for use. Pt has no LTC or VA benefits. Pt has no DPOA, declined further information regarding this. SW to follow up with pt regarding discharge plan after therapy evaluation. Plan: SW to follow up regarding discharge plan after therapy evaluation. KYLE Jacobson Addendum: 10/29/16 at 1528 by DILLON CESPEDES Amended: Links added.
--- NOTE | 2016-10-29 17:26 | NUR ---
Report called to primary care RN SN pt to transport to [facility] at 1740.
--- NOTE | 2016-10-29 17:50 | NUR ---
Dialysis note: S/P temp catheter placement 3 hrs tx 2000 ml net UF Left IJ catheter, dsg changed, sutures intact Hepatitis serologies drawn Pls see DTR for VS details Qb 300 with catheter limbs reversed A-V V-A due to poor cath function No heparin given O2 @ 2L via NC on during tx Blood cultures x 2 drawn Tolerated treatment, slept at intervals Catheter flushed, heparin dwelled and secured Report given to Lois Merchant RN Stable condition at end of tx
[2016-10-29] MEDS: Cefepime Inj 2 GM in IV Premix 1 EACH IV SCH (18:10)
--- NOTE | 2016-10-29 19:42 | DRSVH ---
PROCEDURE: MRI BRAIN WITHOUT CONTRAST ([id number]) INDICATIONS: Generalized weakness. TECHNIQUE: Noncontrast axial T1 spin echo, axial T2 fast spin echo, sagittal and axial FLAIR, coronal T2 fast sp in echo, axial gradient echo, axial diffusion and ADC through the brain. COMPARISON: [facility], CT, CT BRAIN WO CON, 12/08/2015, 20:49. [facility], CT, CT BRAIN WO CON, 10/28/2016, 21:57. FINDINGS: Image quality: Excellent. CSF Spaces: Basal cisterns are patent. No extra-axial fluid collections. There is mild cerebral vo lume loss with prominence of the ventricles and sulci. There is also ex vacuo dilatation of the left lateral ventricle secondary to encephalomalacia. Brain: Diffusion-weighted images demonstrate no acute infarcts. There is encephalomalacia redemonst rated within the left parietal lobe and left coronal radiata consistent with prior infarcts. No defi nite acute intracranial hemorrhage, mass, or mass effect. 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 There are periventricular regions of white matter T2 hyperintensity consis tent with chronic small vessel ischemic changes. Brainstem appears normal. Normal intravascular colt w voids are present. Skull and face: Calvarium has normal marrow signal. Orbits appear normal. Sinuses: There is mild mucosal thickening within the right maxillary sinus. Mastoid air cells are cl ear. IMPRESSION: 1. No evidence of acute infarct or other definite acute intracranial abnormality. 2. Encephalomalacia involving the left parietal lobe and melton radiata redemonstrated consistent wi th prior infarcts. 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 There is associated ex-vacuo dilatation of the left lateral ventricle. 3. Mild cerebral volume loss and chronic white matter small vessel ischemic changes. Dictated by: Pierce Chapa M.D. on 10/29/2016 at 19:40 Approved by: Pierce Chpaa M.D. on 10/29/2016 at 19:40
--- NOTE | 2016-10-29 19:48 | CONS ---
[address] [address] CONSULTATION REPORT PATIENT: ARNOLD JOAQUIN : 1955 MR#: [id number] ADMIT: 10/29/2016 JOB ID: [id number] CORRECTED REPORT: DATE OF SERVICE: 10/29/2016 HISTORY: The patient is a very pleasant, but unfortunate, 61-year-old, white male, who was admitted to [facility] for acute kidney injury and acute hyperkalemia. I am quite familiar with the patient from previous hospitalizations and outpatient consultations. Renal consultation is being sought for further evaluation and management of his acute kidney injury. He has a history of an adrenal adenoma and documented primary hyperaldosteronism. He has had considerable difficulties with blood pressure control despite mineralocorticoid receptor blockade. He has had great fluctuations in his blood pressure and the patient had been stable at my last outpatient evaluation. He also has a history of a prior stroke with some residual right-sided weakness. Apparently recently he had some cellulitis in his right lower leg and was placed on Keflex. He denies any recent vomiting, diarrhea, nausea, but he does state that he has had a bit less to eat in the last 24 hours. He also states that he felt that he has lost about 9 pounds. In the emergency department his creatinine was elevated at 2.6, with a BUN of 102. His potassium was 8 and he was given multiple medical treatments for this. I was consulted earlier this morning and there was a question whether to transfer the patient or to keep him. In the time that it would take to get the patient transferred, get a dialysis catheter into him, and start him on dialysis, we were able to do it in less time. I recommended to continue aggressive medical treatment and I would see him in the morning. This morning the patient states that he is in some respiratory difficulty. PAST MEDICAL HISTORY: Significant for prior stroke, hyperaldosteronism with adrenal adenoma, hypertension with hypertensive heart disease, and hypertensive nephrosclerosis, insulin-requiring diabetes mellitus with diabetic nephropathy, peripheral neuropathy. He has a history of gout, benign prostatic hypertrophy, and asthma. As noted above, he has a history of a stroke and obstructive sleep apnea. PAST SURGICAL HISTORY: Significant for ORIF of one of his fingers. He is not allergic to any food or any medication. SOCIAL HISTORY: He denies current use of alcohol, tobacco, or illicit drugs and lives with family. FAMILY HISTORY: Noncontributory. MEDICATIONS: At time of admission include allopurinol, aspirin, clonidine tablets, clopidogrel, gabapentin, hydralazine, isosorbide, labetalol, losartan, simvastatin, spironolactone, tamsulosin, and Lovaza. REVIEW OF SYSTEMS: As detailed above. Otherwise is unobtainable because of the patient's critical condition. PHYSICAL EXAMINATION: Revealed an obese, pale, ill-appearing 61-year-old, white male who was somewhat somnolent at the time of my evaluation. His blood pressure was 145/85, with a pulse rate of 69. HEENT: Examination is remarkable for pale sclerae and dry mucous membranes. Neck is supple without adenopathy or thyromegaly. Lungs showed some bibasilar rales. Heart was irregularly irregular. Abdomen was distended with diminished bowel sounds. There was some tympany to percussion and some diffuse tenderness. However, I feel this is more due to his ongoing stool losses from several doses of Kayexalate. Extremities showed cellulitis in the distal right lower extremity and some mild to moderate pitting edema of both lower extremities. LABORATORY EXAMINATION: White count 6.2, hemoglobin 11.5, hematocrit 33.9. Sodium 140 potassium 6.7, chloride of 109, bicarbonate 15. BUN and creatinine were 95 and 2.4, respectively. IMPRESSION: 1. Acute kidney injury. Etiology unknown. 2. Chronic kidney disease stage 3. 3. Acute hyperkalemia. 4. Acute metabolic acidosis. 5. Diabetic nephropathy. 6. Hyperaldosteronism. 7. Hypertension with hypertensive heart disease and hypertensive nephrosclerosis. RECOMMENDATION: I have attempted twice to place a dialysis catheter but because of the patient's difficult anatomy even under ultrasound, I was unable to place a catheter. Radiology was kind enough to place one for us and the patient is being dialyzed today for acute kidney injury. We are dialyzing him for 3 hours on a 1 potassium bath, 400 blood flow, no heparin, and a 40 bicarb. Will try to take 1-2 L of fluid off Once again, I would like to thank you for allowing me to participate in the care of this rather unfortunate patient. I will be following him closely with you. Corrected by YUDELKA 12/09/16 at 12:26pm DOS.
[2016-10-30] VITALS (8 sets, daily range): BP systolic 116–159; BP diastolic 78–98; PULSE 83–107; RESP 16–20; O2SAT 93–97
[2016-10-30] MEDS: Heparin 5,000 Unit/mL Inj SUBQ SCH ×3 (02:18→17:36)
[2016-10-30] MEDS: Cefepime Inj 2 GM in IV Premix 1 EACH IV SCH ×2 (03:26→15:21)
--- NOTE | 2016-10-30 06:00 | NUR ---
Pain/Urinary Patient reporting 5/10 foot pain. PRN morphine given with good effect; patient asleep on subsequent checks. Wayne draining small amount of dark ruben urine. Continue to monitor.
[2016-10-30] MEDS: Insulin LISPRO 300 Unit/3 mL Inj SUBQ SCH ×4 (09:08→22:00)
[2016-10-30] MEDS: Isosorbide Mononitrate 60 mg ER24 Tablet PO SCH (09:10)
--- NOTE | 2016-10-30 10:50 | DRSVH ---
PROCEDURE: X-RAY KUB ([id number]) INDICATIONS: distended abdomen TECHNIQUE: One view of the abdomen acquired. COMPARISON: None. FINDINGS: Surgical changes and devices: None. Bowel: Bowel gas pattern is normal. Soft tissues: No suspicious abdominal calcifications. Visualized solid organ contours appear normal in size. Bones: No suspicious bony lesions. IMPRESSION: No acute intra-abdominal findings. Dictated by: Jewell Morrell M.D. on 10/30/2016 at 10:48 Approved by: Jewell Morrell M.D. on 10/30/2016 at 10:49
--- NOTE | 2016-10-30 11:55 | NUR ---
PREETHI signed. Suzie Campos [employer]
--- NOTE | 2016-10-30 13:14 | NUR ---
Evaluation completed. Please go to "Notes" then click on "Assessments and Notes" (bottom left corner of screen). Then select appropriate discipline tab on top of screen.
--- NOTE | 2016-10-30 14:09 | PCM.PNMED ---
Subjective Date of Service Oct 30, 2016 Subjective He is doing well today. No chest pain cough or shortness of breath. No nausea vomiting or diarrhea. He has normal potassium today. One dialysis treatment yesterday. No overnight events. Exam Vital Signs Vital Sign - Last Date Time Temp Pulse Resp B/P Pulse Ox O2 Delivery O2 Flow Rate FiO2 10/30/16 12:39 37.2 91 16 116/78 97 Room Air Intake and Output 10/29/16 10/29/16 10/30/16 Cumulative From/Thru 15:00 23:00 07:00 10/28/16 19:22 - 10/30/16 06:20 Intake Total 1550 ml 429 ml 3078 ml Output Total 2000 ml 2600 ml 250 ml 4850 ml Balance -2000 ml -1050 ml 179 ml -1772 ml Intake Oral 800 ml 300 ml 1100 ml IV Total 750 ml 129 ml 1978 ml Output Urine Total 2600 ml 250 ml 2850 ml Ultrafiltrate 2000 ml 2000 ml Exam Alert and oriented 3, no distress. Fluent speech Anicteric sclera. Lungs are clear with normal rate and effort Heart is regular without murmur gallop or rub Abdomen soft nontender, flat Extremities are free of edema. Skin is free of rash or lesions. Except for his right lower extremity which has a dressing over the pretibial region. There was some surrounding erythema yesterday. This is improving. No fluctuance or drainage. Good pedal pulses in both feet. IVs and Medications Medications Reviewed: Medications were reviewed in detail Lab and Diagnostics Result Diagram: 10/29/16 0235 10/30/16 1120 X-Rays, CTs and MRIs Date of Service: 10/28/162117 PROCEDURE: X-RAY CHEST ONE VIEW, PORTABLE INDICATIONS: Hyperkalemia TECHNIQUE: One view of the chest was acquired. COMPARISON: None. FINDINGS: Surgical changes and devices: None. Lungs and pleura: No pleural effusions or pneumothorax. Lungs are clear. Mediastinum: Mediastinal contours appear normal. Heart size is normal. Bones and chest wall: No suspicious bony lesions. Overlying soft tissues appear unremarkable. IMPRESSION: No acute disease Dictated by: Roddy Mtz M.D. on 10/28/2016 at 21:56 Approved by: Roddy Mtz M.D. on 10/28/2016 at 21:56 Assessment & Plan This is a 61-year-old male with complex past medical history of hypertension, chronic kidney disease stage III, diabetic nephropathy, history of stroke with right sided residual weakness, Conn syndrome, hypertension, who was admitted to the hospital secondary to acute onset generalized weakness onset 4 days ago. Patient was found to be hyperkalemic with EKG changes and nephrology was consulted who recommended and agreed with admission. # Generalized weakness, present on admission, improving.. - Patient had CT head which showed no acute intracranial hemorrhage identified, findings consistent with an old parietal lobe infarct, findings consistent with an old lacunar infarct left coronal radiata. Findings consistent with small vessel ischemic changes which is probably chronic. Dilation of the posterior portion left ventricle as compared to the right. - Likely multi factorial secondary to symptomatic hyperkalemia, and chronic anemia - Patient denied syncope or near syncope or falls - Patient reports improvement in his symptoms since being admitted and receiving medical treatment. Continue physical therapy. He seemed to improve with one dialysis session yesterday as well. He was also placed on empiric antibiotics for possible soft tissue infection of his right lower extremity. He believes that his right lower extremity does feel somewhat better today. #. Follow right lower extremity soft tissue skin infection, POA. This seems to be improving clinically as well as general weakness with antibiotics. We will continue broad-spectrum antibiotics today and do a near swab to rule out MRSA. # Hyperkalemia, present on admission, improved after dialysis. The patient does not need dialysis today. His creatinine however is not improved we will continue to follow this closely. - He was found to be hyperkalemic with a potassium of 8.8 and EKG showed additional signs of hyperkalemia with lack of P waves. He was given sodium bicarbonate 50 mEq, Kayexalate 45 g once by mouth, D50 with 10 units of insulin, - In in addition patient received Lasix 40 mg IV once, and calcium gluconate 1 gm - EKG showed: Rate of 64, junctional rhythm, left bundle branch block, peaked T waves with wording of the QRS, compared to previous EKG 07/16/2026 there is substantial changes, lengthening of the ID interval measured to be 260 ms. - Patient was given 1 L bolus of normal saline and 80. - We will hold outpatient medications spironolactone - We will give calcium gluconate when necessary - We will give additional glucose and IV insulin if necessary - We will give albuterol neb if necessary - Continuous cardiac monitoring Status post one episode of dialysis yesterday, none today. We will follow his potassium every morning. #. Acute renal failure on chronic kidney disease stage III. Active and not improving. We will continue watch this carefully with dialysis support. # Anemia, normochromic normocytic, present on admission, active and stable - H/H 11.5/34.0, MCV 89.2, MCH 30.2, MCHC 33.8 # Right lower extremity anterior tibial wound, with cellulitis, present on admission . This is stable. This is stable - On 10/26/2016 patient had right lower extremity to be tib-fib x-ray that showed no fracture, bony lesion or osteomyelitis. No official report was available for review. - Patient reports the wound is somewhat improved since starting oral antibiotics. - Patient was prescribed Keflex 500 mg 4 times a day for 10 days by his outpatient PCP on 10/26/2016 - Patient has history of chronic leg ulcerations - Wound care evaluation Stopped oral antibiotics and started broad-spectrum IV antibiotics yesterday, will continue cefepime for now. We will do neuro swab and then 4% o'clock tomorrow if possible. # Diabetes - Type II, POA. This is stable - Most recent hemoglobin A1c 6.6 on 10/07/2016 - Assumed controlled as patient not currently on outpatient anti-hyperglycemic medications. - Low-dose correctional scale insulin ordered, no changes to medical regimen. # Diabetic nephropathy , POA. This is stable - Patient is followed by a [facility] nephrology Dr. Vargas # Chronic renal disease stage G3a , POA. # Stroke 2006 with residual R-sided weakness - Continue aspirin 81 mg daily - We will continue medication Plavix 75 mg daily - Patient has significant right-sided upper and lower extremity clonus - We will continue home medication gabapentin as prescribed - Physical therapy consult # Hypertension, POA. Stable. - We will continue medication clonidine 0.3 mg tablets by mouth 3 times a day - We will continue medication hydralazine 50 mg tablet by mouth 3 times a day - We will continue isosorbide 60 mg by mouth daily - We will continue medication labetalol 200 mg by mouth twice a day - We will continue medication losartan 100 mg by mouth daily # Hyperaldosteronism (new dx 07/2016) - Likely secondary to adrenal cortical adenoma of right adrenal gland - We will hold home medications spironolactone given patient's current admit for hyperkale # Diastolic CHF preserved left ventricular function - Echocardiogram dated 10/11/2016 showed: Moderate concentric left ventricular hypertrophy with normal wall motion and LVEF of 60-65%. Normal right ventricular size and function, no gross valvular disease, no pericardial effusion. # Left ventricular hypertrophy # History pericardial effusion, resolved - resolved as seen on recent echo # Gout in right foot -Continue outpatient medication allopurinol # Neuropathy - Gabapentin as above #Hyperlipidemia - Continue medication simvastatin 10 mg daily # BPH - Continue medication tamsulosin 0.4 mg every #Obstructive sleep apnea #Chronic edema, presumed stable - Patient reports no worsening of his lower extremity edema. #Obesity - Patient reports recent 9 pound weight loss # Obstructive sleep apnea Disposition: Admitted to in patient service with expected length of stay greater than 2 days, secondary to severity of presenting symptoms, treatment plan, complexity of clinical work up, and risk of adverse events. CODE STATUS: Full code PCP: Dr. Enrique Sims DVT PE prophylaxis: SubQ heparin Q8H Contact: VTE Mechanical Devices: Intermittant Pneumatic CD Resuscitation Status: CPR: Attempt Resuscitation Jose David Hoffman MD Oct 30, 2016 14:09
--- NOTE | 2016-10-30 14:33 | PCM.PNNEPH ---
Subjective Date of Service Oct 30, 2016 Subjective The patient is considerably better today compared to yesterday. His potassium this morning is 5.0 and he had 2600 and also of urine out in the last 24 hours. His breathing considerably better. He denies any nausea, vomiting, or diarrhea. Exam Vital Signs Vital Sign - Last Date Time Temp Pulse Resp B/P Pulse Ox O2 Delivery O2 Flow Rate FiO2 10/30/16 12:39 37.2 91 16 116/78 97 Room Air Intake and Output 10/29/16 10/29/16 10/30/16 Cumulative From/Thru 14:59 22:59 06:59 10/28/16 19:22 - 10/30/16 06:20 Intake Total 1550 ml 429 ml 3078 ml Output Total 2000 ml 2600 ml 250 ml 4850 ml Balance -2000 ml -1050 ml 179 ml -1772 ml Intake Oral 800 ml 300 ml 1100 ml IV Total 750 ml 129 ml 1978 ml Output Urine Total 2600 ml 250 ml 2850 ml Ultrafiltrate 2000 ml 2000 ml Exam Neck is supple without adenopathy, thyromegaly, or jugular venous distention. Lungs are clear to auscultation. Heart is regular the clobetasol systolic murmur. Abdomen is pendulous and nontender. Extremities show some mild to moderate pitting edema in both distal lower extremities. Lab and Diagnostics Result Diagram: 10/29/16 0235 10/30/16 1120 X-Rays, CTs and MRIs Date of Service: 10/28/162117 PROCEDURE: X-RAY CHEST ONE VIEW, PORTABLE INDICATIONS: Hyperkalemia TECHNIQUE: One view of the chest was acquired. COMPARISON: None. FINDINGS: Surgical changes and devices: None. Lungs and pleura: No pleural effusions or pneumothorax. Lungs are clear. Mediastinum: Mediastinal contours appear normal. Heart size is normal. Bones and chest wall: No suspicious bony lesions. Overlying soft tissues appear unremarkable. IMPRESSION: No acute disease Dictated by: Roddy Mtz M.D. on 10/28/2016 at 21:56 Approved by: Roddy Mtz M.D. on 10/28/2016 at 21:56 Plan Impression Impression #1 acute kidney injury secondary to acute decompensated congestive heart failure #2 acute hyperkalemia which is resolved #3 diabetic nephropathy # 4 primary hyperaldosteronism #5 hypertension with hypertensive heart disease and hypertensive nephrosclerosis Recommendations #1 I do not feel he needs any further dialysis at least for today. I will continue to try to augment his urine output with IV furosemide. If his renal function stabilizes and we can pull his cath in the next several days. Bennie Vargas DO Oct 30, 2016 14:33
--- NOTE | 2016-10-30 14:35 | ED.REPORT ---
HPI-Abd Pain F 2 and Over Date of Service Oct 30, 2016 ED Provider: Alex Calhoun MD Nursing Notes Stated Complaint: ACUTE HYPERKALEMIA Chief Complaint: General Complaint Allergies: Coded Allergies: No Allergy Information Available (Verified Allergy, Unknown, RENAL INSUFFICIENCY DUE TO UNKNOWN ANTIBIOTIC, 12/09/15) Uncoded Allergies: antibiotic of unknown (Allergy, Unknown, 05/10/14) Scheduled Allopurinol (Allopurinol) 100 Mg Tablet 100 MG PO DAILY Aspirin Chew (Aspirin Chew) 81 Mg Chew 81 MG PO DAILY Cholecalciferol (Vitamin D3) (Vitamin D) 1,000 Unit Capsule 2,000 UNIT PO DAILY Clonidine (Clonidine) 0.3 Mg Tablet 0.3 MG PO TID Clopidogrel Bisulfate (Plavix) 75 Mg Tablet 75 MG PO DAILY Gabapentin (Gabapentin) 600 Mg Tablet 600 MG PO DAILY Gabapentin (Gabapentin) 600 Mg Tablet 600 MG PO Noon Gabapentin (Gabapentin) 600 Mg Tablet 1,200 MG PO HS Hydralazine (Hydralazine) 50 Mg Tablet 50 MG PO TID Isosorbide MN ER (Isosorbide MN ER) 60 Mg Tab.er.24h 60 MG PO DAILY Labetalol (Labetalol) 200 Mg Tablet 200 MG PO BID Losartan Potassium (Losartan Potassium) 100 Mg Tablet 100 MG PO DAILY Multivitamin (Multivitamins) 1 Each Capsule 1 EACH PO DAILY Simvastatin (Simvastatin) 10 Mg Tablet 10 MG PO HS Spironolactone (Spironolactone) 100 Mg Tablet 100 MG PO BID Scheduled PRN Albuterol HFA (Proair HFA) 8.5 Gm Hfa.aer.ad 2 PUFFS INHALATION Q4H PRN PRN For Shortness of Breath Docusate Sodium (Colace) 100 Mg Capsule 200 MG PO BID PRN PRN For Constipation Past Medical History Past Medical History Notes: Patient admitted 07/15- for acute kidney injury, accelerated hypertension, and pedal edema for nephrology consult by Dr. Vargas, time of discharge labs for hyper aldosteronism were pending. Smoking History Never Smoker Physical Exam Initial Vital Signs Vital Signs (First) Date Time Temp Pulse Resp B/P Pulse Ox O2 Delivery O2 Flow Rate FiO2 10/28/16 19:22 36.1 77 20 115/62 97 Room Air Interpretation & Diagnostics Lab Results Interpretation Result Diagram: 10/29/16 0235 10/30/16 1120 Test 4/13/17 21:50 10/28/16 22:53 Lactic Acid Level 0.8mmol/L (0.4-2.0) Hold Agarwal Top Tube Received (Received) Discharge & Departure Impression: Primary Impression: Acute on chronic renal insufficiency Additional Impression: Acute hyperkalemia Disposition: ADMITTED TO HOSPITAL Discharge Condition Condition: Stable Referrals: OTHER,PHYSICIAN (PCP) Bennie Vargas DO Oct 30, 2016 14:35
[2016-10-30] MEDS: Furosemide 10 mg/mL 10 mL Inj IVPUSH SCH (15:20)
--- NOTE | 2016-10-30 18:40 | NUR ---
K+ Pt's prior K+ lab elevated, BMP ordered, K+ 5.0, Pt to not receive dialysis today per Dr. Vargas, am labs ordered.
[2016-10-31] VITALS (10 sets, daily range): BP systolic 134–185; BP diastolic 91–106; PULSE 86–100; RESP 16–20; O2SAT 94–97
[2016-10-31] MEDS: Heparin 5,000 Unit/mL Inj SUBQ SCH ×3 (00:54→16:52)
[2016-10-31] MEDS: Cefepime Inj 2 GM in IV Premix 1 EACH IV SCH (03:14)
[2016-10-31 04:44] LABS: Mean Corpuscular Hemoglobin 29.8 pg (27.0-35.0); Mean Corpuscular Volume 88.2 fL (81-100)
--- NOTE | 2016-10-31 05:16 | NUR ---
Potassium Patient's potassium down to 4.7 with morning labs. Generally uneventful night; patient sleeping for most of the shift. Continue close monitoring.
[2016-10-31] MEDS: Furosemide 10 mg/mL 10 mL Inj IVPUSH SCH (07:47)
[2016-10-31] MEDS: Isosorbide Mononitrate 60 mg ER24 Tablet PO SCH (07:47)
[2016-10-31] MEDS: Insulin LISPRO 300 Unit/3 mL Inj SUBQ SCH ×4 (09:27→21:58)
--- NOTE | 2016-10-31 11:23 | PCM.PNMED ---
Subjective Date of Service Oct 31, 2016 Subjective No chest pain, shortness breath nausea vomiting or diarrhea. No abdominal pain. He slept well. No overnight events reported. Exam Vital Signs Vital Sign - Last Date Time Temp Pulse Resp B/P Pulse Ox O2 Delivery O2 Flow Rate FiO2 10/31/16 10:38 96 10/31/16 07:40 36.3 16 185/106 97 Room Air Intake and Output 10/30/16 10/30/16 10/31/16 Cumulative From/Thru 15:00 23:00 07:00 10/28/16 19:22 - 10/31/16 06:17 Intake Total 1116 ml 668 ml 4862 ml Output Total 850 ml 1000 ml 6700 ml Balance 266 ml -332 ml -1838 ml Intake Oral 1030 ml 600 ml 2730 ml IV Total 86 ml 68 ml 2132 ml Output Urine Total 850 ml 1000 ml 4700 ml Ultrafiltrate 2000 ml # Bowel Movements 0 0 Exam Alert and oriented 3, no distress. Fluent speech Anicteric sclera. Lungs are clear with normal rate and effort Heart is regular without murmur gallop or rub Abdomen soft nontender, stented but nontender. Extremities are free of edema. Skin is free of rash or lesions. The right leg dressing is pulled back there is an abrasion involving very small skin ulceration. Minimal surrounding erythema. Lab and Diagnostics Result Diagram: 10/31/1640910/31/16409 X-Rays, CTs and MRIs Date of Service: 10/28/162117 PROCEDURE: X-RAY CHEST ONE VIEW, PORTABLE INDICATIONS: Hyperkalemia TECHNIQUE: One view of the chest was acquired. COMPARISON: None. FINDINGS: Surgical changes and devices: None. Lungs and pleura: No pleural effusions or pneumothorax. Lungs are clear. Mediastinum: Mediastinal contours appear normal. Heart size is normal. Bones and chest wall: No suspicious bony lesions. Overlying soft tissues appear unremarkable. IMPRESSION: No acute disease Dictated by: Roddy Mtz M.D. on 10/28/2016 at 21:56 Approved by: Roddy Mtz M.D. on 10/28/2016 at 21:56 Assessment & Plan This is a 61-year-old male with complex past medical history of hypertension, chronic kidney disease stage III, diabetic nephropathy, history of stroke with right sided residual weakness, Conn syndrome, hypertension, who was admitted to the hospital secondary to acute onset generalized weakness onset 4 days ago. Patient was found to be hyperkalemic with EKG changes and nephrology was consulted who recommended and agreed with admission. #. Acute renal failure with hyperkalemia, POA. Improved. He was dialyzed once and appears to normalizing without recurrent hyperkalemia and good urine output. # Hyperkalemia, present on admission, resolved. She did have one episode of dialysis. His dialysis catheter will be removed today. We will resume spironolactone and follow potassium for another day. He was discussed with nephrology today. #. Chronic kidney disease stage III. Active and not improving. We will continue watch this carefully with dialysis support. # Anemia, normochromic normocytic, present on admission, active and stable # Right lower extremity anterior tibial wound, with cellulitis, present on admission . Improved. We will stop IV antibiotics resume oral antibodies today. Wound care tomorrow prior to discharge. # Diabetes - Type II, POA. This is stable - Low-dose correctional scale insulin ordered, no changes to medical regimen. # Chronic renal disease stage G3a , POA. #Remote CVA with residual R-sided hemiparesis Continue usual medical therapy. # Hypertension, POA. Stable. Continue usual medical therapy # Hyperaldosteronism (new dx 07/2016) Resume spironolactone and follow potassium closely. # Diastolic CHF preserved left ventricular function, chronic and stable - Echocardiogram dated 10/11/2016 showed: Moderate concentric left ventricular hypertrophy with normal wall motion and LVEF of 60-65%. Normal right ventricular size and function, no gross valvular disease, no pericardial effusion. #Obstructive sleep apnea, POA and stable #Chronic edema, POA, chronic and stable #Obesity, POA and stable - Patient reports recent 9 pound weight loss CODE STATUS: Full code PCP: Dr. Enrique Sims DVT PE prophylaxis: SubQ heparin Q8H Inpatient status. Anticipate discharge Tuesday or Tuesday with home health. VTE Mechanical Devices: Intermittant Pneumatic CD Resuscitation Status: CPR: Attempt Resuscitation Jose David Hoffman MD Oct 31, 2016 11:23
--- NOTE | 2016-10-31 12:05 | PCM.PNNEPH ---
Subjective Date of Service Oct 31, 2016 Subjective Patient continues to improve. He denies any further chest pain, shortness of breath, cough, wheezing, nausea or vomiting. His intake and output show 1545 in and 1100 out. In the first aid hours of today he has already had 1000 and urine output. His sodium is 138, potassium 4.7, chloride 98, bicarbonate 22, BUN and creatinine were 77 and 2.35. His blood pressure is beginning to come back up. Exam Vital Signs Vital Sign - Last Date Time Temp Pulse Resp B/P Pulse Ox O2 Delivery O2 Flow Rate FiO2 10/31/16 10:38 96 10/31/16 07:40 36.3 16 185/106 97 Room Air Intake and Output 10/30/16 10/30/16 10/31/16 Cumulative From/Thru 15:00 23:00 07:00 10/28/16 19:22 - 10/31/16 06:17 Intake Total 1116 ml 668 ml 4862 ml Output Total 850 ml 1000 ml 6700 ml Balance 266 ml -332 ml -1838 ml Intake Oral 1030 ml 600 ml 2730 ml IV Total 86 ml 68 ml 2132 ml Output Urine Total 850 ml 1000 ml 4700 ml Ultrafiltrate 2000 ml # Bowel Movements 0 0 Exam Neck is supple without adenopathy, thyromegaly, or jugular venous distention. Lungs are clear to auscultation. Heart was regular and rhythmical with a soft systolic murmur. Abdomen soft without any tenderness rebound guarding masses or hepatosplenomegaly. Extremities do not show any evidence of any clubbing cyanosis or edema. Lab and Diagnostics Result Diagram: 10/31/16 0410 10/31/16409 X-Rays, CTs and MRIs Date of Service: 10/28/162117 PROCEDURE: X-RAY CHEST ONE VIEW, PORTABLE INDICATIONS: Hyperkalemia TECHNIQUE: One view of the chest was acquired. COMPARISON: None. FINDINGS: Surgical changes and devices: None. Lungs and pleura: No pleural effusions or pneumothorax. Lungs are clear. Mediastinum: Mediastinal contours appear normal. Heart size is normal. Bones and chest wall: No suspicious bony lesions. Overlying soft tissues appear unremarkable. IMPRESSION: No acute disease Dictated by: Roddy Mtz M.D. on 10/28/2016 at 21:56 Approved by: Roddy Mtz M.D. on 10/28/2016 at 21:56 Bennie Vargas DO Oct 31, 2016 12:05
--- NOTE | 2016-10-31 15:14 | NUR ---
Dizziness Pt reporting dizziness while flat which resolved when he brought up the head of his bed prior to afternoon dose of hydralazine. BP checked while sitting 134/93 and when laying flat 143/92, Pt continued to deny further dizziness, Pt given afternoon hydralazine dose. Addendum: 10/31/16 at 1811 by HARRY CUMMINS RN Pt had no further c/o dizziness this shift.
[2016-11-01] VITALS (10 sets, daily range): BP systolic 107–158; BP diastolic 70–99; PULSE 76–100; RESP 18–20; O2SAT 94–97
[2016-11-01] MEDS: Heparin 5,000 Unit/mL Inj SUBQ SCH ×3 (00:48→16:48)
[2016-11-01 02:49] LABS: Magnesium 2.3 mg/dL (1.6-2.6)
--- NOTE | 2016-11-01 05:44 | NUR ---
Leg Cramps/Wayne/Potassium Patient reporting new leg cramps/spasms around midnight. At first patient thought it might be positional; assisted patient to find a more comfortable position in bed. Cramps continued; ordered magnesium lab added to morning labs. Magnesium 2.3, K 5.0. Cramps resolved spontaneously. Wayne discontinued at 0540; catheter tip WNL. Continue to monitor.
[2016-11-01] MEDS: Isosorbide Mononitrate 60 mg ER24 Tablet PO SCH (07:40)
[2016-11-01] MEDS: Furosemide 10 mg/mL 10 mL Inj IVPUSH SCH (07:41)
[2016-11-01] MEDS: Insulin LISPRO 300 Unit/3 mL Inj SUBQ SCH ×4 (07:42→20:51)
--- NOTE | 2016-11-01 10:50 | PCM.PNMED ---
Subjective Date of Service Nov 01, 2016 Subjective He does have a headache today which is transient. The patient did not respond to Tylenol. No visual changes. No new neurologic symptoms including numbness redness of his normal side. He denies any chest pain, shortness of breath or abdominal pain. Urinary output overnight. No overnight events. Exam Vital Signs Vital Sign - Last Date Time Temp Pulse Resp B/P Pulse Ox O2 Delivery O2 Flow Rate FiO2 11/01/16 08:30 36.6 89 18 158/99 95 Room Air Intake and Output 10/31/16 10/31/16 11/01/16 Cumulative From/Thru 15:00 23:00 07:00 10/28/16 19:22 - 11/01/16 06:30 Intake Total 1669 ml 130 ml 6661 ml Output Total 1200 ml 1050 ml 8950 ml Balance 469 ml -920 ml -2289 ml Intake Oral 1600 ml 100 ml 4430 ml IV Total 69 ml 30 ml 2231 ml Output Urine Total 1200 ml 1050 ml 6950 ml Ultrafiltrate 2000 ml # Bowel Movements 0 0 Exam Alert and oriented 3, no distress. Fluent speech Anicteric sclera. Lungs are clear with normal rate and effort Heart is regular without murmur gallop or rub Abdomen soft nontender, flat Extremities are free of edema. Skin is free of rash or lesions. Except the right lower extremity which has a chronic ulceration. Pupils are symmetric. IVs and Medications Medications Reviewed: Medications were reviewed in detail Lab and Diagnostics Result Diagram: 10/31/16 0410 11/01/16 0215 X-Rays, CTs and MRIs Date of Service: 10/28/162117 PROCEDURE: X-RAY CHEST ONE VIEW, PORTABLE INDICATIONS: Hyperkalemia TECHNIQUE: One view of the chest was acquired. COMPARISON: None. FINDINGS: Surgical changes and devices: None. Lungs and pleura: No pleural effusions or pneumothorax. Lungs are clear. Mediastinum: Mediastinal contours appear normal. Heart size is normal. Bones and chest wall: No suspicious bony lesions. Overlying soft tissues appear unremarkable. IMPRESSION: No acute disease Dictated by: Roddy Mtz M.D. on 10/28/2016 at 21:56 Approved by: Roddy Mtz M.D. on 10/28/2016 at 21:56 Assessment & Plan This is a 61-year-old male with complex past medical history of hypertension, chronic kidney disease stage III, diabetic nephropathy, history of stroke with right sided residual weakness, Conn syndrome, hypertension, who was admitted to the hospital secondary to acute onset generalized weakness onset 4 days ago. Patient was found to be hyperkalemic with EKG changes and nephrology was consulted who recommended and agreed with admission. #. Headache, new. We will treat this clinically with morphine and follow carefully. #. Acute renal failure with hyperkalemia, POA. Improving. His creatinine is even better today and his urinary output.. He was dialyzed once and appears to normalizing without recurrent hyperkalemia and good urine output. # Hyperkalemia, present on admission, resolved. She did have one episode of dialysis. His dialysis catheter will be removed today. We will resume spironolactone and follow potassium for another day. He was discussed with nephrology today. #. Chronic kidney disease stage III. Active. He continues to move towards his baseline creatinine. # Anemia, normochromic normocytic, present on admission, active and stable # Right lower extremity anterior tibial wound, with cellulitis, present on admission . Improved. We will stop IV antibiotics resume oral antibodies today. Wound care tomorrow prior to discharge. # Diabetes - Type II, POA. This is stable - Low-dose correctional scale insulin ordered, no changes to medical regimen. #Remote CVA with residual R-sided hemiparesis Continue usual medical therapy. # Hypertension, POA. Stable. Continue usual medical therapy # Hyperaldosteronism (new dx 07/2016) Resume spironolactone and follow potassium closely. # Diastolic CHF preserved left ventricular function, chronic and stable - Echocardiogram dated 10/11/2016 showed: Moderate concentric left ventricular hypertrophy with normal wall motion and LVEF of 60-65%. Normal right ventricular size and function, no gross valvular disease, no pericardial effusion. #Obstructive sleep apnea, POA and stable #Chronic edema, POA, chronic and stable #Obesity, POA and stable - Patient reports recent 9 pound weight loss CODE STATUS: Full code PCP: Dr. Enrique Sims DVT PE prophylaxis: SubQ heparin Q8H Inpatient status. Anticipate discharge Tuesday or Tuesday with home health. VTE Mechanical Devices: Intermittant Pneumatic CD Resuscitation Status: CPR: Attempt Resuscitation Jose David Hoffman MD Nov 01, 2016 10:50
--- NOTE | 2016-11-01 14:39 | NUR ---
P: Pain I: c/o Headache 01/24 [address] po [address] Hoffman at bedside to see the pt. Morphine 2 mg IV given per order. Pt stated the Morphine made him feel funny. Headache gone and pt is feeling better. NSR. Taking diet and fluids well. Voiding per urinal without difficulty. BP 107/70 and Apresoline held. Saline lock patent without redness or swelling at the site. Blood sugar 387 this am and coverage given. Dr. Hoffman aware. 1130 blood sugar 207 and coverage given. Up to chair x1 with 2 stand by assist and using walker. Temporary HD cath intact. E: Stable S: alert and oriented. Uses call light appropriately. Frequent rounding.
--- NOTE | 2016-11-01 15:30 | NUR ---
Wound Care [facility] Patient seen for dressing change to right lower leg. Redness marked on 10/29/16 is resolved with exception of immediate quiana-wound area. Minimal brown drainage noted on dressing. Wound cleansed with normal saline. Minimal slough removed per mechanical debridement using saline and 4x4. No bleeding noted. Applied wound gel and covered with mepilex. Open wound area measures 4cm L x 2cm W x 0.1cm D with 75% slough and 25% red tissues following cleansing. Recommend continued dressing changes every 24 to 48 hours per nursing. Wound care to follow as needed.
--- NOTE | 2016-11-01 17:07 | PCM.PNNEPH ---
Subjective Date of Service Nov 01, 2016 Subjective The patient states that he feels much better today. The patient denies abdominal pain. His urine appears to be clear. Exam Vital Signs Vital Sign - Last Date Time Temp Pulse Resp B/P Pulse Ox O2 Delivery O2 Flow Rate FiO2 11/01/16 16:30 36.8 86 18 127/83 96 Room Air Intake and Output 10/31/16 10/31/16 11/01/16 Cumulative From/Thru 15:00 23:00 07:00 10/28/16 19:22 - 11/01/16 06:30 Intake Total 1669 ml 130 ml 6661 ml Output Total 1200 ml 1050 ml 8950 ml Balance 469 ml -920 ml -2289 ml Intake Oral 1600 ml 100 ml 4430 ml IV Total 69 ml 30 ml 2231 ml Output Urine Total 1200 ml 1050 ml 6950 ml Ultrafiltrate 2000 ml # Bowel Movements 0 0 Exam General: Alert and cooperative male lying in no acute distress with BiPAP nose mask in place Eyes: PERRLA, EOMI, anicteric sclera noninjected conjunctiva HENT: Normocephalic atraumatic, throat mucous membranes pink and moist, no erythema, no exudates, no tonsillar swelling, no uvular deviation. Neck: soft supple, no adenopathy, no JVD, no masses, no thyromegaly, Lungs: CTAB all velez, no wheezes, no rhonchi, no crackles, no adventitious lung sounds, no use of accessory muscles of respiration, good air movement, good respiratory effort. Heart: Regular rate and rhythm, no murmur, S1-S2 present, no rub, no click, no distant heart sounds, Abdomen: Soft, nontender, nondistended, bowel sounds active, no rebound, no guarding, Genitourinary: No CVA tenderness, no suprapubic tenderness, no Wayne catheter, Extremities: Pulses intact bilaterally at radial and dorsalis pedis, mild edema peripheral, no clubbing or cyanosis Skin: Warm and dry Neurologic: See neurologically intact, PT in full sentences, no focal neurological signs, [id number], [id number], no pronator drift, no hemineglect. Psychiatric: Normal mood and affect Lab and Diagnostics Result Diagram: 10/31/16 0410 11/01/16 0215 X-Rays, CTs and MRIs Date of Service: 10/28/162117 PROCEDURE: X-RAY CHEST ONE VIEW, PORTABLE INDICATIONS: Hyperkalemia TECHNIQUE: One view of the chest was acquired. COMPARISON: None. FINDINGS: Surgical changes and devices: None. Lungs and pleura: No pleural effusions or pneumothorax. Lungs are clear. Mediastinum: Mediastinal contours appear normal. Heart size is normal. Bones and chest wall: No suspicious bony lesions. Overlying soft tissues appear unremarkable. IMPRESSION: No acute disease Dictated by: Roddy Mtz M.D. on 10/28/2016 at 21:56 Approved by: Roddy Mtz M.D. on 10/28/2016 at 21:56 Plan Impression This is a 61-year-old male with complex past medical history of hypertension, chronic kidney disease stage III, diabetic nephropathy, history of stroke with right sided residual weakness, Conn syndrome, hypertension, who was admitted to the hospital secondary to acute onset generalized weakness onset 4 days ago. Patient was found to be hyperkalemic with EKG changes and nephrology was consulted who recommended and agreed with admission. 1 Acute renal failure and Chronic kidney disease stage III 2 Hyperkalemia 3 normochromic normocytic Anemia 4 hyperaldosteronism 5 Hypertension Plan: 1 Acute renal failure and Chronic kidney disease stage III - Patient required one round of dialysis on the day of admission without further dialysis requirements - Patient's creatinine continues to trend down since admission with treatment of patient's congestive heart failure with diuretics - Patient continues to have good urinary output more than 2 L yesterday 2 Hyperkalemia - Patient required one round of dialysis on the day of admission without further dialysis requirements - furosemide 40 mg daily 3 normochromic normocytic Anemia - Mild - Likely due to chronic kidney disease - Monitor 4 hyperaldosteronism - Spironolactone 25 daily 5 Hypertension - Labetalol 300 milligrams twice a day - Patient's blood pressure appears to be much better controlled today Lazarus Caldwell DO Nov 01, 2016 17:06
[2016-11-02] MEDS: Heparin 5,000 Unit/mL Inj SUBQ SCH ×2 (01:24→08:30)
[2016-11-02 03:35] VITALS: BP 139/91; PULSE 79; RESP 20; O2SAT 96
[2016-11-02 08:19] VITALS: BP 152/96; PULSE 75; RESP 18; O2SAT 95
[2016-11-02] MEDS: Isosorbide Mononitrate 60 mg ER24 Tablet PO SCH (08:25)
[2016-11-02] MEDS: Insulin LISPRO 300 Unit/3 mL Inj SUBQ SCH (08:26)
[2016-11-02 09:26] LABS: Mean Corpuscular Hemoglobin 29.8 pg (27.0-35.0); Mean Corpuscular Volume 90.3 fL (81-100)
--- NOTE | 2016-11-02 10:55 | PCM.DIMED ---
Discharge Instructions Date of Service Nov 02, 2016 Dates of Hospitalization Oct 29, 2016 at 01:20 Discharge Diagnosis Discharge Diagnosis #. Acute renal failure with hyperkalemia,improved. # Hyperkalemia, improved. #. Chronic kidney disease stage III. # Anemia, stable # Right lower extremity anterior tibial wound, with cellulitis, improved. # Diabetes - Type II, stable #Remote CVA with residual R-sided hemiparesis # Hypertension, stable. # Hyperaldosteronism (new dx 07/2016) # Chronic diastolic heart failure ( preserved left ventricular function), stable. #Obstructive sleep apnea, stable #Chronic edema, stable #Obesity, stable Diet Low fat, Low Sodium, Diabetic Activity Limited until seen by PCP Call your provider Fever or Chills, Shortness of breath, Chest pain Patient Instructions The patient will have home services for PT and nursing. Specific we will request a basic metabolic panel on November 05 with a copy to Dr. Bennie Vargas. We will also request wound care with every other day wound dressings using saline as well as 4 x 4's. Debridement followed by wound gel and Mipilex dressing. Ongoing education regarding a low potassium diet. Follow-up Provider: Bennie Vargas DO Follow-up with PCP in: 2 weeks Jose David Hoffman MD Nov 02, 2016 10:55
[2016-11-02] MEDS ORDERED: SPIR25TA PO (11:05)
[2016-11-02] MEDS ORDERED: LABE200T PO (11:05)
[2016-11-02] MEDS ORDERED: GABA300C PO (11:05)
--- NOTE | 2016-11-02 11:24 | NUR ---
Social Work- Readiness for Discharge Data: EMR reviewed. Pt is on day 4 of hospitalization for acute hyperkalemia per H&P. Pt is nearing discharge. PT has cleared pt for home as is mobility is currently at baseline. Wound Care is following pt. SW spoke with pt regarding RN PT to follow for wounds, med management, electrolyte monitoring. Pt has history with [facility] but is not currently open with them. Pt agreeable to discharging home with . HH CHOICE LIST PROVIDED. Pt chose [facility] . SW called George Gottlieb, [facility] liaison, left message informing him of referral and pt's discharge. BHAVIN faxed F2F to [facility] Main Office . Access given. F2F put on chart. Pt to discharge home with [facility] RN PT. SW will continue to follow. Assessment: Pt who would benefit from [facility] RN PT. Plan: Pt to discharge home with [facility] RN PT. Access given. [facility] liaison and main office notified of referral and provided F2F. Access given. BHAVIN will continue to follow. KYLE Jacobson
--- NOTE | 2016-11-02 12:19 | NUR ---
Discharge Note: Discussed discharge instructions and medications with pt. Hardcopy Rx was given to patient along with medication information. Pt verbalized understanding of follow up labs and appointment. Tunnel cath DC'd by engagement mgr. Dietary consulted with pt about low potassium diet. PIV DC'd intact by RN. Pt denies CP or SOB at this time. VSS. Patients personal supply of medications was returned to him. Addendum: 11/02/16 at 1526 by SHIVA ALMANZAR RN Pt exited unit via WC with all personal belongings at about 1400 and was transported hoe by his sister in a personal vehicle.
--- NOTE | 2016-11-02 12:30 | NUR ---
Social Work- Discharge Data: EMR reviewed. Pt is on day 4 of hospitalization for acute hyperkalemia per H&P. Pt discharged today. F2F provided to Saurabh CHESTER. Pt to discharge home with [facility] RN PT. Assessment: Pt who would benefit from [facility] RN PT. Plan: Pt to discharge home with [facility] RN PT. Access given. [facility] liaison and main office notified of referral and provided F2F. KYLE Jacobson
--- NOTE | 2016-11-02 12:35 | PCM.DC.MED ---
Discharge Summary Date of Service Nov 02, 2016 Dates of Hospitalization Date of Hospital Admission Oct 29, 2016 at 01:20 Date of Discharge: Nov 02, 2016 Providers: Admitting Physician: Ger Donovan MD Primary Care Physician: Other,Physician Attending Physician: Ger Donovan MD Diagnosis at Time of Discharge Diagnosis at Time of Discharge #. Acute renal failure with hyperkalemia,improved. # Hyperkalemia, improved. #. Chronic kidney disease stage III. # Anemia, stable # Right lower extremity (chronic) anterior tibial wound, with cellulitis, improved. # Diabetes - Type II, stable #Remote CVA with residual R-sided hemiparesis # Hypertension, stable. # Hyperaldosteronism (new dx 07/2016) # Chronic diastolic heart failure ( preserved left ventricular function), stable. #Obstructive sleep apnea, stable #Chronic edema, stable #Obesity, stable Consultations Nephrology, Dr. Vargas Procedures XRay, CTs & MRIs Date of Service: 10/28/162117 PROCEDURE: X-RAY CHEST ONE VIEW, PORTABLE INDICATIONS: Hyperkalemia TECHNIQUE: One view of the chest was acquired. COMPARISON: None. FINDINGS: Surgical changes and devices: None. Lungs and pleura: No pleural effusions or pneumothorax. Lungs are clear. Mediastinum: Mediastinal contours appear normal. Heart size is normal. Bones and chest wall: No suspicious bony lesions. Overlying soft tissues appear unremarkable. IMPRESSION: No acute disease Dictated by: Roddy Mtz M.D. on 10/28/2016 at 21:56 Approved by: Roddy Mtz M.D. on 10/28/2016 at 21:56 Brain MRI:\ IMPRESSION: 1. No evidence of acute infarct or other definite acute intracranial abnormality. 2. Encephalomalacia involving the left parietal lobe and melton radiata redemonstrated consistent with prior infarcts. 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 There is associated ex-vacuo dilatation of the left lateral ventricle. 3. Mild cerebral volume loss and chronic white matter small vessel ischemic changes. Dictated by: Pierce Chapa M.D. on 10/29/2016 at 19:40 Approved by: Pierce Chapa M.D. on 10/29/2016 at 19:[address]: MPRESSION: 1. Subtle hypodensity in the left temporal lobe suspicious for acute or subacute infarct. 2. Old cerebral infarct in the right upper lobe with encephalomalacia. 3. Old infarct involving the left melton radiata. 4. Cerebral volume loss and chronic microvascular ischemic changes. The result was discussed with Dr. Villalpando on 10/29/2016 at 0812 hours. Dictated by: Kristin Liriano M.D. on 10/29/2016 at 8:00 Transcribed by: CINDY on 10/29/2016 at 8:13 Approved by: Kristin Liriano M.D. on 10/29/2016 at 9:28 ECG 12 Lead Normal sinus rhythm, left bundle branch block. Prolonged MI interval 320. Invasive Procedures [place] dialysis catheter: PROCEDURE: CV TEMP DIALYSIS INDICATIONS: Hyperkalemia COMPARISON: None. Fluoroscopy time: 0.3 minutes Technique: 1. Fluoroscopic and sonographically guided not tunneled hemodialysis catheter placement. The indications, alternatives, benefits, risks, and complications of the procedure were explained to the patient.. Informed written consent was obtained and placed in the chart. The patient was brought to the angiography suite, and monitored by the retirement staff. Maximum sterile barrier technique was employed per standard protocol, including hand hygiene, cap, mask, sterile gown and gloves, and 2% chlorhexidine. Sterile ultrasound probe cover was also utilized. 1% lidocaine was used to anesthetize the skin over the area of interest. Using a micropuncture kit, under ultrasound guidance, the left internal jugular vein was accessed in a antegrade fashion. An 035 wire was advanced through the micropuncture sheath with the tip in the inferior vena cava. The venotomy was serially dilated and a dual-lumen temporary hemodialysis catheter was advanced with the tip in the right aorta. This was secured in place at the skin with nonabsorbable suture. Both lumens were flushed with heparinized saline. FINDINGS: Initial ultrasound demonstrates a widely patent left internal jugular vein. Final spot fluoroscopic image demonstrates an appropriately placed however a left internal jugular vein hemodialysis catheter. IMPRESSION: Status post sonographic and fluoroscopically guided placement of a temporary left internal jugular vein hemodialysis catheter. Dictated by: Jewell Morrell M.D. on 10/29/2016 at 14:37 Approved by: Jewell Morrell M.D. on 10/29/2016 at 14:40 Other Diagnostics Patient had normal telemetry monitoring while in the hospital for the last 3 days of his admission. 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 Patient states that prior to 4 days ago he was fine. Patient normally has little difficulty ambulating on his own. Patient uses a cane. Over the past 4 days he complains of worsening generalized weakness. Patient was in by his PCP Dr. Juliocesar Celaya prior to admission and received Keflex 500 mg 4 times a day X10 days for a right lower extremity anterior tibial wound. Pt. reports he has a chronic redness and swelling to his right lower extremity. Denies any worsening of his right lower extremity swelling and redness and says he believes it may actually have improved some since starting antibiotics. He does not believe the LE swelling in the right leg has worsened. Patient states that this is the only medication change that she has had a recent. Patient was seen on 10/28/[address] urgent care. per Dr. Vargas's note, had generalized weakness, reported mild shortness of breath with exertion, but denied it at rest and denied chest pain. He was reported not to be in any distress at the time of his urgent care visit today. Patient was transferred to the [facility] ED for further evaluation. Of note patient states that he was able to ambulate from the parking lot into urgent care with little difficulty. But then later had difficulty even standing up to get out of the wheelchair. He does not perceive any additional focal weakness from his baseline. He is he is usually more energetic. There has been no changes in his mentation, memory, speech from his normal baseline. In the ED He was found to be hyperkalemic with a potassium of 8.8 and EKG showed additional signs of hyperkalemia with peaked T's and lack of P waves. He was given sodium bicarbonate 50 mEq, Kayexalate 45 g once by mouth, D50 with 10 units of insulin. In in addition patient received Lasix 40 mg IV once, and calcium gluconate 1 gm Patient was given 1 L bolus of normal saline. EKG showed: Rate of 64, junctional rhythm, left bundle branch block, peaked T waves with wording of the QRS, compared to previous EKG 07/16/2026 there is substantial changes, lengthening of the MI interval measured to be 260 ms. Note patient is on numerous medications for his chronic diseases including spironolactone 100 mg twice a day, clopidogrel, clonidine, simvastatin, aspirin , allopurinol, tamsulosin, and losartan potassium. Patient reports recent 9 lb weight loss. Patient denied fevers, chills, headaches, changes in vision, neck stiffness or pain, chest pain, shortness of breath, abdominal pain, nausea/ vomiting/diarrhea or constipation, sick contacts, recent travel, dysuria, hematuria, urinary retention. Denies any recent falls or head trauma. Also of note patient was seen by Dr. Vargas as an inpatient back in July when he was diagnosed with hyperaldosteronism and as an outpatient for his chronic kidney disease. He was last seen in clinic on 09/10/2016 for evaluation of his chronic kidney disease, hypertension and primary hyperaldosteronism. Dr. Vargas remarked in his note, that patients lower extremity edema appeared minimal at that time. Patient denied any orthopnea or nocturnal dyspnea at that time. His potassium was 4.9 on that visit. His BUN of 55 and creatinine 1.14. His GFR was 55. Since most recent hemoglobin A1c was 6.6 on 10/07/2016 at his PCP. Vital signs in the ED: He 36.1, P 77, BP 115/62, RR 20, O2 97% on room air Hemogram showed WBC's 7.0, neutrophils 74%, H/H 11.5/34.0, MCV 89.2, MCH 30.2, MCHC 33.8, platelet count 171. Chemistry panel: Sodium 135, potassium elevated at 8.5-->8.8 and then 7.5 after medical therapy, chloride 110, CO2 13, BUN 107, creatinine 2.73, patient's baseline creatinine ranges from 1.47 (05/2016) to high of 3.45 on 07/2016. glucose 109, otherwise normal chemistry panel. Blood cultures were ordered and are pending on this admit. Echocardiogram dated 10/11/2016 showed: Moderate concentric left ventricular hypertrophy with normal wall motion and LVEF of 60-65%. Normal right ventricular size and function, no gross valvular disease, no pericardial effusion. Hospital Course This is a 61-year-old male with complex past medical history of hypertension, chronic kidney disease stage III, diabetic nephropathy, history of stroke with right sided residual weakness, Conn syndrome, hypertension, who was admitted to the hospital secondary to acute onset generalized weakness onset 4 days ago. Patient was found to be hyperkalemic with EKG changes and nephrology was consulted who recommended and agreed with admission. #. Headache, new. We will treat this clinically with morphine and follow carefully. #. Acute renal failure with hyperkalemia, POA. Improving. His creatinine is even better today and his urinary output.. He was dialyzed once and appears to normalizing without recurrent hyperkalemia and good urine output. # Hyperkalemia, present on admission, resolved. She did have one episode of dialysis. His dialysis catheter will be removed today. We will resume spironolactone and follow potassium for another day. He was discussed with nephrology today. #. Chronic kidney disease stage III. Active. He continues to move towards his baseline creatinine. # Anemia, normochromic normocytic, present on admission, active and stable # Right lower extremity anterior tibial wound, with cellulitis, present on admission . Improved. We will stop IV antibiotics resume oral antibodies today. Wound care tomorrow prior to discharge. # Diabetes - Type II, POA. This is stable - Low-dose correctional scale insulin ordered, no changes to medical regimen. #Remote CVA with residual R-sided hemiparesis Continue usual medical therapy. # Hypertension, POA. Stable. Continue usual medical therapy # Hyperaldosteronism (new dx 07/2016) Resume spironolactone and follow potassium closely. # Diastolic CHF preserved left ventricular function, chronic and stable - Echocardiogram dated 10/11/2016 showed: Moderate concentric left ventricular hypertrophy with normal wall motion and LVEF of 60-65%. Normal right ventricular size and function, no gross valvular disease, no pericardial effusion. #Obstructive sleep apnea, POA and stable #Chronic edema, POA, chronic and stable #Obesity, POA and stable - Patient reports recent 9 pound weight loss CODE STATUS: Full code PCP: Dr. Enrique Sims DVT PE prophylaxis: SubQ heparin Q8H Inpatient status. Anticipate discharge Tuesday or Tuesday with home health. Hospital course: Patient was admitted with evidence of acute renal failure and hyperkalemia. The patient was initially treated medically. The patient had his spironolactone held. He does have chronic kidney disease stage III. The patient had a temporary dialysis catheter catheter placed and was treated once with dialysis. This did improve the situation and his urine all point and kidney function both improved. The patient requires no further dialysis treatments. He did well otherwise. He was quite weak initially but this improved with therapy and daily ambulation and movement. He did have headache and again prior to discharge which also resolved. On the day of discharge patient felt at baseline. Decision was made at that point to spironolactone which had been restarted at low dose today before and have close follow-up with Dr. flood as well as surveillance electrolytes. Notable medication changes. Gabapentin was redosed for kidney function to 300 mg twice a day. Spironolactone was discontinued and had been in the 100 mg twice a day. Clonidine was stopped at the time of admission. Labetalol was increased from 200 mg twice a day to 300 mg twice a day. Exam Vital Signs (Last) Date Time Temp Pulse Resp B/P Pulse Ox O2 Delivery O2 Flow Rate FiO2 11/02/16 08:20 CPAP/BIPAP 11/02/16 08:19 36.6 75 18 152/96 95 Exam Patient is seen and examined on day of discharge Test 10/28/16 21:50 10/29/16 02:35 10/29/16 12:34 10/29/16 14:30 Lactic Acid Level 0.8mmol/L (0.4-2.0) Neutrophils (%) (Auto) 64.9% (40-74) Lymphocytes (%) (Auto) 22.3% (14-46) Monocytes (%) (Auto) 7.6% (4-12) Eosinophils (%) (Auto) 4.2% (0-5) Basophils (%) (Auto) 0.8% (0-3) Hemoglobin A1c 6.3% (4.8-5.6) Total Creatine Kinase 7U/L (21-232) Ketones Negative (Negative) Hepatitis B Surface Antigen Negative (Negative) Hepatitis B Surface Antibody Non reactive (.) Hepatitis B Core Total Antibody Negative (Negative) Hepatitis C Antibody <0.1s/co ratio (0.0-0.9) Test 11/01/16 00:50 11/01/16 02:15 11/02/16 09:20 Hold Agarwal Top Tube Received (Received) Magnesium Level 2.3mg/dL (1.6-2.6) White Blood Count 8.4th/mm3 (3.8-10.1) Red Blood Count 3.92mil/mm3 (4.40-5.80) Hemoglobin 11.7g/dL (13.8-17.2) Hematocrit 35.4% (41.0-50.0) Mean Corpuscular Volume 90.3fL (81-100) Mean Corpuscular Hemoglobin 29.8pg (27.0-35.0) Mean Corpuscular Hemoglobin Concent 33.1% (32.0-37.0) Red Cell Distribution Width 13.9% (12.3-15.4) Platelet Count 152bil/L (150-400) Sodium Level 139mEq/L (134-144) Potassium Level 5.2mEq/L (3.5-5.2) Chloride Level 99mEq/L (97-108) Carbon Dioxide Level 23mmol/L (18-29) Blood Urea Nitrogen 82mg/dL (8-27) Creatinine 1.90mg/dL (0.76-1.27) Estimat Glomerular Filtration Rate 38mL/min (>59) Glucose Level 151mg/dL (60-99) Calcium Level 9.6mg/dL (8.5-10.1) Total Bilirubin 0.4mg/dL (0.0-1.2) Aspartate Amino Transf (AST/SGOT) 14U/L (0-50) Alanine Aminotransferase (ALT/SGPT) 6U/L (0-44) Alkaline Phosphatase 55U/L (25-160) Total Protein 7.8g/dL (6.4-8.4) Albumin 4.5g/dL (3.4-5.0) Discharge Medications Discharge Medications Allopurinol (Allopurinol) 100 Mg Tablet 100 MG PO DAILY (Reported) Aspirin Chew (Aspirin Chew) 81 Mg Chew 81 MG PO DAILY (Reported) Cholecalciferol (Vitamin D3) (Vitamin D) 1,000 Unit Capsule 2,000 UNIT PO DAILY (Reported) Clopidogrel Bisulfate (Plavix) 75 Mg Tablet 75 MG PO DAILY (Reported) Gabapentin (Neurontin) 300 Mg Capsule 300 MG PO BID Prescribed by: JOSE DAVID VILLALPANDO MD Hydralazine (Hydralazine) 50 Mg Tablet 50 MG PO TID Prescribed by: ARMNIDA MENON DO Isosorbide MN ER (Isosorbide MN ER) 60 Mg Tab.er.24h 60 MG PO DAILY (Reported) Labetalol (Labetalol) 200 Mg Tablet 300 MG PO BID 1.5 pills BID Prescribed by: JOSE DAVID VILLALPANDO MD Losartan Potassium (Losartan Potassium) 100 Mg Tablet 100 MG PO DAILY (Reported ) Multivitamin (Multivitamins) 1 Each Capsule 1 EACH PO DAILY (Reported) Simvastatin (Simvastatin) 10 Mg Tablet 10 MG PO HS (Reported) As needed Albuterol HFA (Proair HFA) 8.5 Gm Hfa.aer.ad 2 PUFFS INHALATION Q4H PRN PRN For Shortness of Breath (Reported) Docusate Sodium (Colace) 100 Mg Capsule 200 MG PO BID PRN PRN For Constipation ( Reported) Followup Plan Disposition: Home with home health including wound care, follow-up basic metabolic panel 3 days after discharge and visiting nurse. Discharge Diet: Low fat, Low Sodium, Diabetic Discharge Activity: Limited until seen by PCP Patient Instructions The patient will have home services for PT and nursing. Specific we will request a basic metabolic panel on November 05 with a copy to Dr. Bennie Vargas. We will also request wound care with every other day wound dressings using saline as well as 4 x 4's. Debridement followed by wound gel and Mipilex dressing. Ongoing education regarding a low potassium diet. Follow-up Provider: Bennie Vargas DO Follow-up with PCP in: 2 weeks Time spent 45 minutes Jose David Villalpando MD Nov 02, 2016 12:35
[2016-11-02 12:43] VITALS: BP 114/78; PULSE 114; RESP 18; O2SAT 96
--- NOTE | 2016-11-02 13:29 | PCM.PNNEPH ---
Subjective Date of Service Nov 02, 2016 Subjective Patient states that he slept ok last night. He feels ready to be discharged. He is aware that he will need to follow up with Dr. Vargas within one week of being discharged. The patient's dialysis catheter was pulled today without complication. A treatment technician will come by to discuss a low potassium diet. Exam Vital Signs Vital Sign - Last Date Time Temp Pulse Resp B/P Pulse Ox O2 Delivery O2 Flow Rate FiO2 11/02/16 12:43 114 18 114/78 96 Room Air 11/02/16 08:19 36.6 Intake and Output 11/01/16 11/01/16 11/02/16 Cumulative From/Thru 15:00 23:00 07:00 10/28/16 19:22 - 11/02/16 06:20 Intake Total 1444 ml 400 ml 8505 ml Output Total 700 ml 1000 ml 35931 ml Balance 744 ml -600 ml -2145 ml Intake Oral 1444 ml 400 ml 6274 ml IV Total 2231 ml Output Urine Total 700 ml 1000 ml 8650 ml Ultrafiltrate 2000 ml # Bowel Movements 0 Exam General: Alert and cooperative male lying in no acute distress Eyes: PERRLA, EOMI, anicteric sclera noninjected conjunctiva HENT: Normocephalic atraumatic, throat mucous membranes pink and moist, no erythema, no exudates, no tonsillar swelling, no uvular deviation. Neck: soft supple, no adenopathy, no JVD, no masses, no thyromegaly, left IJ dialysis catheter site covered with Tegaderm dressing, no erythema or drainage noted Lungs: CTAB all velez, no wheezes, no rhonchi, no crackles, no adventitious lung sounds, no use of accessory muscles of respiration, good air movement, good respiratory effort. Heart: Regular rate and rhythm, no murmur, S1-S2 present, no rub, no click, no distant heart sounds, Abdomen: Soft, nontender, nondistended, bowel sounds active, no rebound, no guarding, Genitourinary: No CVA tenderness, no suprapubic tenderness, no [place] catheter, Extremities: Pulses intact bilaterally at radial and dorsalis pedis, mild edema peripheral, no clubbing or cyanosis Skin: Warm and dry Neurologic: grossly neurologically intact at baseline given prior stroke deficits Psychiatric: Normal mood and affect Lab and Diagnostics Result Diagram: 11/02/1620 11/02/16919 X-Rays, CTs and MRIs Date of Service: 10/28/162117 PROCEDURE: X-RAY CHEST ONE VIEW, PORTABLE INDICATIONS: Hyperkalemia TECHNIQUE: One view of the chest was acquired. COMPARISON: None. FINDINGS: Surgical changes and devices: None. Lungs and pleura: No pleural effusions or pneumothorax. Lungs are clear. Mediastinum: Mediastinal contours appear normal. Heart size is normal. Bones and chest wall: No suspicious bony lesions. Overlying soft tissues appear unremarkable. IMPRESSION: No acute disease Dictated by: Roddy Mtz M.D. on 10/28/2016 at 21:56 Approved by: Roddy Mtz M.D. on 10/28/2016 at 21:56 Brain MRI:\ IMPRESSION: 1. No evidence of acute infarct or other definite acute intracranial abnormality. 2. Encephalomalacia involving the left parietal lobe and melton radiata redemonstrated consistent with prior infarcts. 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 There is associated ex-vacuo dilatation of the left lateral ventricle. 3. Mild cerebral volume loss and chronic white matter small vessel ischemic changes. Dictated by: Pierce Chapa M.D. on 10/29/2016 at 19:40 Approved by: Pierce Chapa M.D. on 10/29/2016 at 19:[address]: MPRESSION: 1. Subtle hypodensity in the left temporal lobe suspicious for acute or subacute infarct. 2. Old cerebral infarct in the right upper lobe with encephalomalacia. 3. Old infarct involving the left melton radiata. 4. Cerebral volume loss and chronic microvascular ischemic changes. The result was discussed with Dr. Hoffman on 10/29/2016 at 0812 hours. Dictated by: Kristin Liriano M.D. on 10/29/2016 at 8:00 Transcribed by: CINDY on 10/29/2016 at 8:13 Approved by: Kristin Liriano M.D. on 10/29/2016 at 9:28 12-lead ECG Normal sinus rhythm, left bundle branch block. Prolonged MD interval 320. Additional Diagnostics Patient had normal telemetry monitoring while in the hospital for the last 3 days of his admission. Plan Impression This is a 61-year-old male with complex past medical history of hypertension, chronic kidney disease stage III, diabetic nephropathy, history of stroke with right sided residual weakness, Conn syndrome, hypertension, who was admitted to the hospital secondary to acute onset generalized weakness onset 4 days ago. Patient was found to be hyperkalemic with EKG changes and nephrology was consulted who recommended and agreed with admission. 1 Acute renal failure and Chronic kidney disease stage III 2 Hyperkalemia 3 normochromic normocytic Anemia 4 hyperaldosteronism 5 Hypertension Plan: Plan: 1 Acute renal failure and Chronic kidney disease stage III - Patient required one round of dialysis on the day of admission without further dialysis requirements - Patient's creatinine continues to trend down since admission with treatment of patient's congestive heart failure with diuretics - Patient continues to have good urinary output - Patient will require nephrology follow up as an outpatient and should be seen within 1 week of discharge 2 Hyperkalemia - Patient required one round of dialysis on the day of admission without further dialysis requirements - furosemide 40 mg daily 3 normochromic normocytic Anemia - Mild - Likely due to chronic kidney disease - Monitor 4 likely primary hyperaldosteronism secondary to left adrenal adenoma - prior kaya level was normal but the kaya:renin ratio was elevated - CT in July 2016 shows likely adrenal adenoma - discontinue Spironolactone given bump in potassium from 5 to 5.2 with Spironolactone 25mg BID 5 Hypertension - Labetalol 300 milligrams twice a day - Patient's blood pressure appears to be much better controlled Lazarus Caldwell DO Nov 02, 2016 13:28
== END 2016-11-02 14:00 | disposition home health service (06) | DRG 292 ==
LOC: SED 19:15 → PCC 10-29 01:20
PROVIDERS: ADMIT Hospitalist; ATTEND Hospitalist
PROC: 05HN33Z Insertion of Infusion Device into Left Internal Jugular Vein, Percutaneous Approach (ICD-10-PCS; principal; 2016-10-29)
PROC: B544ZZA Ultrasonography of Left Jugular Veins, Guidance (ICD-10-PCS; 2016-10-29)
PROC: 5A1D00Z (ICD-10-PCS; 2016-10-29)
DX: I13.0 Hypertensive heart and chronic kidney disease with heart failure and stage 1 through stage 4 chronic kidney disease, or unspecified chronic kidney disease (principal); N17.9 Acute kidney failure, unspecified; I50.32 Chronic diastolic (congestive) heart failure; I69.351 Hemiplegia and hemiparesis following cerebral infarction affecting right dominant side; L03.115 Cellulitis of right lower limb; E87.5 Hyperkalemia; N18.3 Chronic kidney disease, stage 3 (moderate); Z79.82 Long term (current) use of aspirin; E11.21 Type 2 diabetes mellitus with diabetic nephropathy; E26.9 Hyperaldosteronism, unspecified; M10.9 Gout, unspecified; E78.5 Hyperlipidemia, unspecified; G47.33 Obstructive sleep apnea (adult) (pediatric); M62.81 Muscle weakness (generalized); E66.09 Other obesity due to excess calories; D64.9 Anemia, unspecified; Z68.35 Body mass index [BMI] 35.0-35.9, adult